=== PATIENT | male | born 1965 | race Two or more races ===

== ENCOUNTER 2024-07-19 09:58 | Outpatient (REF) | payer OTHER, SELFPAY ==
--- NOTE | ~2024-07-19 | XR_ITS ---
CLINICAL HISTORY: M25.561 - Pain in right knee 2 view right knee Comparison: None Findings: Bones intact. No dislocations. There are degenerative changes most pronounced in the medial compartment. No joint effusion. No radiopaque foreign body. IMPRESSION: 1. No acute findings. This document has been electronically signed by: Brian Pate MD on 07/20/2024 08:04:40
--- NOTE | ~2024-07-19 | XR_ITS ---
CLINICAL HISTORY: M25.562 - Pain in left knee 3 view left knee Comparison: None Findings: No fractures or dislocations. There are degenerative changes most pronounced in the medial compartment. No joint effusion. No radiopaque foreign body. IMPRESSION: 1. No acute findings. This document has been electronically signed by: Brian Pate MD on 07/20/2024 08:04:05
== END 2024-07-19 09:59 | disposition home or self-care (01) ==
LOC: HO.HOSX 09:58
PROVIDERS: PCP Internal Medicine; Visit Provider Orthopaedic Surgery
DX: M17.11 Unilateral primary osteoarthritis, right knee (principal); M25.561 Pain in right knee; M25.562 Pain in left knee
CPT/HCPCS: 73562; 99202

== ENCOUNTER 2024-07-19 09:58 | Outpatient (AMB) | payer OTHER, SELFPAY ==
--- NOTE | 2024-07-19 10:02 | A.OFFVIS_ITS ---
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 Patient reports that he has had pain in bilateral knee pain for quite some time now. He explains that he has been seen in the past with us but has since lost about 100lbs. Since loosing weight the knees have improved. The right is worse than the left. He has had history of cortisone injection with his PCP about a month ago. The cortisone is helping but he does continue to have pain. 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 Patient reports that he has had pain in bilateral knee pain for quite some time now. He explains that he has been seen in the past with us but has since lost about 100lbs. Since losing weight the knees have improved some but he still has a bad limp and is unable to gat through his day without pain. The right is worse than the left. He has had history of cortisone injection with his PCP about a month ago. The cortisone is helping but he does continue to have pain. Physical Exam Vital Signs: BMI result Body Mass Index 44.9 Extrem Other: Varus right knee with severe gait antalgia. Tenderness to palpation medial joint line. 5-125 degrees of motion. No effusion. Results Reviewed Results Reviewed: I personally reviewed relevant radiographs. End-stage medial compartment osteoarthritis with varus malalignment right knee Assessment & Plan Assessment & Plan (1) Arthritis of right knee: Code(s): M17.11 - Unilateral primary osteoarthritis, right knee Category: Medical Plan: This is a 58-year-old gentleman with severe medial compartment osteoarthritis of the right knee. He has had injections in the past and has lost significant amount weight. He has some excessive truncal obesity but he is on Ozempic and continuing to lose weight. He is frustrated that he can not ambulate. This is a patient I have seen in the remote past who was morbidly obese. It is impressive that he has lost weight and I do think he would benefit from knee arthroplasty injections activity modification and nonnarcotic pain medication have not been helpful. I discussed this with him. I discussed the risks benefits and alternatives including but not limited to the risk of pain, infection, stiffness, need for further surgery as well as potential medical complications such as blood clots, pulmonary embolism and cardiac complications. He would like to proceed forward with surgery. He had a cortisone injection about a month ago and so we will proceed forward with surgery in the next proximally 4 months. I answered his questions. We will begin the preoperative clearance process. Orders: Orders XR knee RT 3V Today M25.561 - Pain in right knee XR knee LT 3V Today M25.562 - Pain in left knee Coding Level of Care Code New Pt Level 4 (80414) Diagnoses Arthritis of right knee M17.11
[2024-07-19 10:22] VITALS: BMI 44.9
== END 2024-07-19 10:59 | disposition home or self-care (01) ==
LOC: HO.HOS 09:58
PROVIDERS: PCP Internal Medicine; Visit Provider Orthopaedic Surgery
DX: M17.11 Unilateral primary osteoarthritis, right knee (principal)
CPT/HCPCS: 99204

== ENCOUNTER → 2024-07-19 10:13 | Outpatient (BNV) | payer OTHER, SELFPAY | PROVIDERS: PCP Internal Medicine; Visit Provider Specialist | DX: M25.562 Pain in left knee (principal); M25.561 Pain in right knee | CPT/HCPCS: 73562 ==

== ENCOUNTER → 2024-09-16 08:55 | Outpatient (BNVA) | payer OTHER, SELFPAY | PROVIDERS: PCP Internal Medicine | DX: Z01.818 Encounter for other preprocedural examination (principal) ==

== ENCOUNTER 2024-09-24 | Outpatient (REF) | payer OTHER, SELFPAY ==
--- OUTSIDE RECORDS SUMMARY | 2024-08-27 14:12 | XMS_ITS ---
[facility] Address [address] [place] [address] Care Team Providers Care Assembler Name Role Phone Hanna RANGEL, Mckinley Primary Care Provider UnavailSanjay Sandy Unavailable [phone] Allergies Allergen (clinical drug ingredient) Drug/Non Drug Allergy documented on EMR Reaction Allergy Type Onset Date Status Penicillin Unknown Drug Allergy Active REASON FOR VISIT At Risk Footcare, Painful Nail(s) aggravated by shoes and causing difficulty standing/walking, Wart(s), Toe Irritation Medications Medication SIG (Take, Route, Frequency, Duration) Notes Start Date End Date Status traZODone HCl Active Ventolin HFA 108 (90 Base) MCG/ACT 1 puff as needed Inhalation every 4 hrs Active metFORMIN HCl 500 MG 1 tablet with a melany l Orally Once a day for 30 day(s) Active Pulmicort Active Ozempic Active cycloPHOSphamide 50 MG as directed Orally Active Chlorhexidine Active Ibuprofen 600 MG 1 tablet with food o r milk as needed Orally Three times a day Active Furosemide 40 MG 1 tablet Orally Once a day for 30 day(s) Active Lisinopril 5 MG 1 tablet Orally Once a day for 30 day(s) Active Cetirizine HCl Activ e Budesonide (Inhalation) Active amLODIPine Besylate 10 MG 1 tablet Orall y Once a day for 30 day(s) Active Ambien 10 MG 1 tablet at bedtime as needed Orally Once a day Active Breo Ellipta 100-25 MCG/ACT 1 puff Inhal ation Once a day Active Extra Depth Orthopedic Shoes, (1) Pair With (3) Pair Custom Heat Molded Multidensity Innersoles Dx: NIDDM/PVD(E11.51), Hammertoe Foot Deformity(M20.41,M20.42) , Preulcerative Skin Lesion(s)(L85.1) Wear Daily for 365 days Active Social History Tobacco Use: Social History Observation Description Date Details (start date - stop date) Never Smoker NA - NA Tobacco Use/Smoking Question Answer Notes Are you a: nonsmoker Additional Findings: Tobacco Non-User Current no n-smoker Alcohol Screen Question Answer Notes Did you have a drink containing alcohol in the p ast year? No Points 0 Interpretation Negative Tobacco use other than smoking: Question Answer Notes Are you an other tobacco user? No Vital Signs Weight 313 lbs 01/15/2024 BMI 50.51 kg/m2 01/15/2024 Procedures Procedure Date Ordered Date Performed Result Body Sit e 35278-NJPJYNS NAIL, 6 OR MORE 01/15/2024 N/A 71540-ROFK SKIN LESIONS, OVER 4 01/15/2024 N/A Encounters Encounter Location Date Provider Diagnosis [facility] [address] [address] 01/15/2024 Sanjay Lemons Type 2 diabetes mellitus with diabetic peripheral angiopathy without gangrene E11.51 ; Tinea unguium B35.1 ; Pain in right toe(s) M79.674 ; Pain in left toe(s) M79.675 ; Other hammer toe(s) (acquired), right foot M20.41 and Other hammer toe(s) (acquired), left foot M20.42 Assessments Encounter Date Diagnosis (ICD Code) Assessment Notes Treatment Notes Treatment Clinical Notes Section Notes 01/15/2024 Type 2 diabetes mellitus with diabetic peripheral angiopathy without gangrene (ICD-10 - E11.51) 01/15/2024 Tinea unguium (ICD-10 - B35.1) 01/15/2024 Pain in right toe(s) (ICD-10 - M79.674) 01/15/2024 Pain in left toe(s) (ICD-10 - M79.675) 01/15/2024 Other hammer toe(s) (acquired), right foot (ICD-10 - M20.41) Patient Educated with: DIABETIC FOOT CARE INSTRUCTIONS.p df (DIABETIC FOOT CARE INSTRUCTIONS.p df) 01/15/2024 Other hammer toe(s) (acquired), left foot (ICD-10 - M20.42) Plan Of Treatment Medication Medication Name Sig Start Date Stop Date Notes Extra Depth Orthopedic Shoes , (1) Pair With (3) Pair Custom Heat Molded Multidensity Innersoles Dx: NIDDM/PVD(E11.51), Hammertoe Foot Deformity(M20.41,M20.42), Preulcerative Skin Lesion(s)(L85.1) Wear Daily for 365 days Treatment Notes Assessment Notes Other hammer toe(s) (acquired), right fo ot Patient Educated with: DIABETIC FOOT CARE INSTRUCTIONS.pdf (DIABETIC FOOT CARE INSTRUCTIONS.pdf) Pending Test Test Name Order Date 25563-PNQKRDA NAIL, 6 OR MORE 01/15/2024 21528-[facility] SKIN LESIONS, OVER 4 01/15/20 24 Next Appt Details Follow Up: prn, Reason: Procedure Notes * Category Sub-Category Detail Notes Debride Nail 6-10 Nail debridement Performance o f this nail treatment by a nonprofessional would put this patients foot and overall health at risk. Therefore, nail debridement was performed extensively to reduce/remove overall nail length, girth, thickness, subungual debris, and necrotic tissue, by manual and/or electrical means through the use of a nail nipper and/or dremel-type universal grinder tool, to a more viable healthy nail plate or bed tissue 6-10. Silver nitrate used for any petechial bleeding as necessary. Definitive antifungal treatment options have been reviewed and discussed with the patient. The patient chooses, no pharmaceutical tx - 95729 Keratoma Treatment Parring or Cutting o f Benign Hyperkeratotic Lesion(s) (-57) More than 4 Lesions - The Benign hyperkeratotic lesions, as described above were pared, and/or cut utilizing a sterile 15 blade, tissue nippers, and/or dremel - 20536 , Q8 Progress Notes * Kenny CANDOB:1965 ( 58 yo M)Acc No.[id number]:01/15/2024 Progress Note Patient:Kenny MARTINEZ Provider:?Sanjay Lemons DPM :1965???Age:58 Y???Sex:Male Yoan e:01/15/2024 Address:[address] [place], [place] [id number] Pcp:Mckinley Ferreira MD Subjective: * Chief Complaints: * ???At Risk FootcarePainful N ail(s) aggravated by shoes and causing difficulty standing/walkingWart(s)Toe Irritation * HPI: ???At Risk footcare:?Pt States Last PCP Visit:?Date?12/25/2023 ???Toe pain:?Location:?B/L feet.?Duration:?several years.?Course:?worse.?Aggravated by:?shoes, any pressure.?Treatments:?change in shoes.? * ROS:?General/Constitutional:?Nausea?denies.?Vomiting?denies.?Hunger Thirst?denies.?Loss appetite?denies.?Chills?denies.?Fatigue?denies.?Fever?denies.?Night Sweats?denies.?Unexplained weight loss?denies.?Unexplained weight gain?denies.?HEENTM:?Dentures?denies.?Dizziness?denies.?Glasses/contacts?denies.?Retinopathy?den ies.?Blurred/double vision?denies.?TMJ?denies.?Discharge/drainage?denies.?Implants?denies.?Sore throat?denies.?Dental implants?denies.?Hard of hearing ?denies.?Difficulty chewing/swallowing/speaking?denies.?Nose bleeds?denies.?Sore mouth?denies.?Respiratory:?On O xygen?admits.?Pneumonia/pleurisy?denies.?Bronchitis?denies.?Emphysema?denies.?Co ughing?denies.?Cough blood?denies.?Shortness of breath?denies.?Wheezing?denies.?Cardiovascular:?Pacemaker?denies.?MVP?denies.?WPW?denies.?CHF?denies.?Heart attack?denies.?Septal defect?denies.?Rapid beat?denies.?Chest pain ?denies.?Atrial Fib.?denies.?Murmur/Palpitations?denies.?Gastrointestinal:?Hemorrhoids?denies.?Stomach/Abdominal pain?denies.?Dark blood stool?denies.?Irritable bowel ?denies.?Constipation?denies.?Diarrhea?denies.?Hematology:?Swelling?admits.?Clots?denies.?Varicose Veins?denies.?Bruising?denies.?Bleeding problem?denies.?Genitourinary:?Blood urine?denies.?Frequent/Painfu/urination/bladder control?denies.?Kidney stones?denies.?Infection (UTI)?denies.?Nephropathy?denies.?sex trans dis (STD)?denies.?Prostate?denies.?Musculoskeletal:?Hammertoes?admits.?Bunions?denies.?Back Pain?denies.?Muscle Cramps/ Resting?denies.?Muscle cramps / walking?denies.?Generalized aches and pains?denies.?Weakness?denies.?Integ.:?Dawn?denies.?Scars?denies.?Corns/calluses?admits.?Ingrown nails?admits.?Painful nails?admits.?Open Sores?denies.?Rashes?denies.?Neurologic:?Difficulty sleeping?denies.?Brain disorder?denies.?Numbness?denies.?Balance t rouble?denies.?Confusion?denies.?Fainting/blackouts?denies.?Tingling?denies.?Ector mors?denies.? * Medical History:? * Surgical History:?nasal surg sarah, deviated septum 2013knee surgery 05/2014 * Hospitalization/Major Diagno stic Procedure:?[facility]- SOB, pneumonia 06/2023 * Family History:?Mother: dece ased 64 yrs, diagnosed with Diabetic - NIDDM.?Father: , diagnosed with Diabetic - NIDDM.?Spouse: alive.? * Social History:?Tobacco Use:?Tobacco Use/Smoking?Are you a:?nonsmoker ?Additional Findings: Tobacco Non-User?Current non-smoker ?Tobacco use other than smoking?Are you an other tobacco user??No ???Drugs/Alcohol:?Drugs?Have you used drugs other than those for medical reasons in the past 12 months??No ?Alcohol Screen?Did you have a drink containing alcohol in the past year??No ?Points?0 ?Interpretation?Negative ???Miscellaneous:?Caffeine: yes. ?Children: yes. ?Exercise: no. ?Marital status: . ?Occupation: Disabled. * Medications:?TakingAmbien 10 MG Tablet 1 tablet at bedtime as needed Orally Once a day amLODIPine Besylate 10 MG Tablet 1 tablet Orally Once a day Breo Ellipta 100-25 MCG/ACT Aerosol Powder Breath Activated 1 puff Inhalation Once a day Budesonide (Inhalation) Cetirizine HCl Chlorhexidine cycloPHOSphamide 50 MG Capsule as directed Orally Furosemide 40 MG Tablet 1 tablet Orally Once a day Ibuprofen 600 MG Tablet 1 tablet with food or milk as needed Orally Three times a day Lisinopril 5 MG Tablet 1 tablet Orally Once a day metFORMIN HCl 500 MG Tablet 1 tablet with a meal Orally Once a day Ozempic Pulmicort traZODone HCl Ventolin HFA 108 (90 Base) MCG/ACT Aerosol Solution 1 puff as needed Inhalation every 4 hrs Extra Depth Orthopedic Shoes, (1) Pair With (3) Pair Custom Heat Molded Multidensity Innersoles . Dx: NIDDM/PVD(E11.51), Hammertoe Foot Deformity(M20.41,M20.42), Preulcerative Skin Lesion(s)(L85.1) Wear Daily Medication List reviewed and reconciled with the patientTaking Ambien 10 MG Tablet 1 tablet at bedtime as needed Orally Once a day Taking amLODIPine Besylate 10 MG Tablet 1 tablet Orally Once a day Taking Breo Ellipta 100-25 MCG/ACT Aerosol Powder Breath Activated 1 puff Inhalation Once a day Taking Budesonide (Inhalation) Taking Cetirizine HCl Taking Chlorhexidine Taking cycloPHOSphamide 50 MG Capsule as directed Orally Taking Furosemide 40 MG Tablet 1 tablet Orally Once a day Taking Ibuprofen 600 MG Tablet 1 tablet with food or milk as needed Orally Three times a day Taking Lisinopril 5 MG Tablet 1 tablet Orally Once a day Taking metFORMIN HCl 500 MG Tablet 1 tablet with a meal Orally Once a day Taking Ozempic Taking Pulmicort Taking traZODone HCl Taking Ventolin HFA 108 (90 Base) MCG/ACT Aerosol Solution 1 puff as needed Inhalation every 4 hrs Taking Extra Depth Orthopedic Shoes, (1) Pair With (3) Pair Custom Heat Molded Multidensity Innersoles . Dx: NIDDM/PVD(E11.51), Hammertoe Foot Deformity(M20.41,M20.42), Preulcerative Skin Lesion(s)(L85.1) Wear Daily Medication List reviewed and reconciled with the patient * Allergies:?Penicillinyes[All ergies Verified] Objective: * Vitals:?Wt:313, BMI:50.51, S hoe size:10.5, BS:93, Ht-cm: 167.64 cm, Wt-k.97 kg. * Examination: ???Vascular: ?DP PULSES (B):? 0/4, B/L.?PT PULSES (B):? 0/4, B/L.?CAPILLARY FILL TIME:? delayed, all digits, B/L.?TROPHIC CONDITION-TEXTURE/ELASTICITY/TURGOR/HAIR GROWTH (B):? decreased, with sparse to absent hair growth,?fragile, thin, shiny skin, B/L.?TEMPERTURE GRADIENT (C):? decreased, cool to cool, proximal to distal, B/L.?PIGMENTATION:? brawny, B/L.?EDEMA (C):? 3/4, non-pitting, without aching pain, B/L, Leg(s), Ankle(s), Feet.?CLAUDICATION (C):?denies, B/L.?REST PAIN:?denies, B/L.?Nails: ?NAILS are:?Elongated, overgrown, dystrophic, lytic, greater than 3mm thick, discolored and friable with crumbly malodorous subungual debris, with pain on palpation, 1-5 B/L.?Dermatologic: ?SKIN FINDINGS:? Skin exam reveals Keratotic lesion(s) located at, SUB MTH (s), 1, B/L , SUB MTH (s), 5, B/L , Heel(s), B/L .?VERRUCA:?NO FURTHER SIGN of mosaic papule(s) with skin lines now evident and visible plantar forefoot, B/L.?Orthopedic: ?MUSCLE STRENGTH:?5/5 all groups in a symmetrical fashion , B/L.?FOOT MORPHOLOGY:? Pes Planus structure, No Charcot collapse/destruction noted at MTJ.?DIGITAL DEFORMITIES:?Digital contracture, PIPJ, 2-5 B/L, incompl-reducible to push-up test, no over, nor underlapping , with evidence of shoe producing skin irritation.?FOOTWEAR:?worn, non-supportive , shoe gear properties exacerbate patients foot/toe deformity.?Neurological: ?SENSORY:?Neurological exam reveals intact sensorium, pain sensation normal, vibration sensation intact, pinprick sensation is normal in the lower extremities, 5.07 monofilament test performed at plantar aspects of 5 varied sites per foot shows sensation, normal, B/L, Pt denies, anesthesia, burning, paresthesia, tingling, B/L.?Ophthalmology Referral: ?DIABETES EYE EXAM?Procedure Performed:?Yes ?Date of Exam Performed?12/20/2023 ?Diabetic Retinopathy Screening:?Yes ?Findings of Diabetic Eye Exam:?no retinopathy?General Examination: ?GENERAL APPEARANCE:?Reveals a pleasant, alert, well nourished, well developed, well hydrated individual, who demonstrates proper attention to hygiene/body habitus, and is in no acute distress , Pt serves as own historian for office visit today.?ORIENTED:?person, place, and time.?FOOT EXAM:?Lower Extremity Neurological Exam performed:?Yes ?Visual exam of foot performed:?Yes ?Date?01/15/2024 ?Footwear Evaluation?Footwear Evaluation performed:?Yes??? Assessment: * Assessment: 1.?Type 2 diabetes mellitus with diabetic peripheral angiopathy without gangrene - E11.51???2.?Tinea unguium - B35.1???3.?Pain in right toe(s) - M79.674???4.?Pain in left toe(s) - M79.675???5.?Other hammer toe(s) (acquired), right foot - M20.41???Specify :Chronic problem, Worse (4),Rx Management (4)???6.?Other hammer toe(s) (acquired), left foot - M20.42???Specify :Chronic problem, Worse (4),Rx Management (4)??? Plan: * Treatment: 2.?Tinea unguium?Procedure: 21385-ZQMCFTO NAIL, 6 OR MORE 3.?Other hammer toe(s) (acqu ired), right foot? Start Extra Depth Orthopedic Shoes, (1) Pair ., With (3) Pair Custom Heat Molded Multidensity Innersoles, Dx: NIDDM/PVD(E11.51), Hammertoe Foot Deformity(M20.41,M20.42), Preulcerative Skin Lesion(s)(L85.1), Wear, Daily, 365 days, 2, Refills 0.?? Notes: Patient Educated with: DIABETIC FOOT CARE INSTRUCTIONS.pdf (DIABETIC FOOT CARE INSTRUCTIONS.pdf)?? * Procedures:?Debride Nail 6-10:?Nail debridement?Performance of this nail treatment by a nonprofessional would put this patients foot and overall health at risk. Therefore, nail debridement was performed extensively to reduce/remove overall nail length, girth, thickness, subungual debris, and necrotic tissue, by manual and/or electrical means through the use of a nail nipper and/or dremel-type universal grinder tool, to a more viable healthy nail plate or bed tissue 6-10. Silver nitrate used for any petechial bleeding as necessary. Definitive antifungal treatment options have been reviewed and discussed with the patient. The patient chooses, no pharmaceutical tx - 38263.?Keratoma Treatment:?Parring or Cutting of Benign Hyperkeratotic Lesion(s)?(-57) More than 4 Lesions - The Benign hyperkeratotic lesions, as described above were pared, and/or cut utilizing a sterile 15 blade, tissue nippers, and/or dremel - 96322 , Q8.? * Procedure Codes:?26382 DEBRI DE NAIL, 6 OR MORE, Modifiers: XS 22355 TRIM SKIN LESIONS, OVER 4, Modifiers: XS , Q8 * Preventive Medicine:? ??Counseling:?BMI Care goal follow-up plan:?BMI counseling provided to patient:?Lifestyle education ?Discussion:?-14: Office or other outpatient visit for the evaluation and management of an established patient, which required a medically appropriate history and/or examination and MODERATE level of DECISION MAKING for: 1 OR MORE CHRONIC PROBLEM(S) THATS WORSENING, 2 STABLE CHRONIC PROBLEMS, A NEWLY DIAGNOSED PROBLEM WITH UNCERTAIN PROGNOSIS, AN ACUTE COMPLICATED INJURY WITH MULTIPLE TREATMENT OPTIONS, OR AN ACUTE PROBLEM WITH ACCOMPANYING SYSTEMIC SYMPTOMS, THAT POSE(S) A MODERATE RISK OF MORBIDITY. THIS CONDITION MAY ALSO INCLUDE RX DRUG MANAGEMENT, OR A DECISON FOR MINOR SURGERY. The visit on the day of the encounter encompassed interpreting the data and educating the patient as to the nature of their condition, treatment options available according to their individual PMH, meds, allergies, and overall health/living conditions, as well as any potential risks or complications that may occur from a failure to adhere to, and participate in, the recommended course of therapy. The discussion included a complete verbal, and/or written explanation of the examination results, any x-rays taken, the proposed diagnosis, and outline of the treatment plan. A schedule for future care needs was also explained. The patient verbalized an understanding of the instructions at this time and agreed to be an active participant in their treatment. If the patient should think of any questions or concerns after the visit, I have encouraged the patient to call the office.?Digital Surgery:?Digital surgery was discussed with the patient, We elected to try conservative treatment at the present time, due to the patients medical history and increased asssociated post-operative risks.?Digital Treatment:?HT- I explained to the patient the possible etiologies of Hammertoes, including genetics/foot type/shoegear/activity level/exercise routine and the risks/benefits of all the different treatment options for their pain including: No treatment at all, Rest, Ice, New/supportive/wider/deeper Shoegear, Digital Padding/Strapping/Taping/Bracing/Gel protective sleeves, Foot/Ankle AFO Bracing, Stretching exercises, Deep Tissue Massage, Arch support/shoe inserts with splay metatarsal padding, and Custom orthoses. I insisted that any digital devices be removed daily and not worn overnight for safety. The patient is to carefully examine the toes daily for any skin irritation while using any splinting or padding device. The advantages and disadvantages of each option were discussed and the patients questions re: shoegear, padding, custom vs prefabricated inserts, activity level, and consistency in home treatment regimens for optimal success were answered to their verbally confirmed satisfaction.?Shoe Gear Counseling:?SHOE Rx - The patient was counseled in great detail on their muscoloskeletal foot and toe deformities which coincided with the dermatological presentations visualized on exam. We discussed how their deformities put the integrity of their feet at risk for potential pedal complications which makes the accomidative diabetic shoes and cutomizable inserts medically necessary. We discussed the different shoe and insert treatment types and options, as well as the important advantages for adhering to regularly wearing these accomidative devices daily. The patient was made aware of the fact that a failure to abide by these recommedations may be deleterious to their foot health as they are able to prevent many pedal complications such as skin irritation, skin ulceration, infection, and even loss of toe/foot/leg/or life. Time was also spent with the patient dispensing and discussing proper diabetic footcare techniques including daily skin moisturization, daily foot inspection for any interruption in skin integrity including open lesions, or sign of infection such as redness/malodor/drainage/swelling. Also discussed and recommended were procedures regarding daily shoe inspection for the presence of internal foreign bodies as well as any visualized irregular shoe or insert wear. Patient questions re: shoes, inserts, and self foot inspections were answered to their satisfaction as the patient verbally confirmed a full understanding of the above information. A Rx for Extra Depth Orthopedic Shoes with 3 pair of custom heat-molded inserts was dispensed.? ??Screening/Special Tests:?Fall Risk?Screening:?No falls in the past year ?FALLS: Screening for Future Fall Risk?Have you had any falls with injury in the past year??No * Follow Up:?prn * Images: * Sign off status: Completed true * Provider:?Sanjay Lemons DPM Date:?2023 Generated for Maddie espinoza/Laureano/Marissa on:?08/27/2024 02:12 PM EDT History and Physical Notes * HPI (History of Present Illness) Category Sub-Category Detail Notes Category Not es Toe pain Location: B/L feet Duration: several years Course: worse Aggravated by: shoes, any pressure Treatments: change in shoes At Risk footcare Pt States Last PCP Visit: Date: 4 Examination Category Sub-Category Detail Notes Category Not es Neurological SENSORY: Neurological exa m reveals intact sensorium, pain sensation normal, vibration sensation intact, pinprick sensation is normal in the lower extremities, 5.07 monofilament test performed at plantar aspects of 5 varied sites per foot shows sensation, normal, B/L, Pt denies, anesthesia, burning, paresthesia, tingling, B/L Dermatologic SKIN FINDINGS: Skin exam reveal s Keratotic lesion(s) located at, SUB MTH (s), 1, B/L , SUB MTH (s), 5, B/L , Heel(s), B/L VERRUCA: NO FURTHER SIGN of m osaic papule(s) with skin lines now evident and visible plantar forefoot, B/L Orthopedic FOOT MORPHOLOGY: Pes Planus stru cture, No Charcot collapse/destruction noted at MTJ FOOTWEAR EVALUATION: worn, non-supportiv e , shoe gear properties exacerbate patients foot/toe deformity DIGITAL DEFORMITIES: Digital contracture , PIPJ, 2-5 B/L, incompl-reducible to push-up test, no over, nor underlapping , with evidence of shoe producing skin irritation MUSCLE STRENGTH: 5/5 all groups in a symmetrical fashion , B/L General Examination GENERAL APPEARANCE: Reveals a pleasant, alert, well nourished, well developed, well hydrated individual, who demonstrates proper attention to hygiene/body habitus, and is in no acute distress , Pt serves as own historian for office visit today FOOT EXAM: Lower Extremity Neurological Exa m performed:: Yes Visual exam of foot performed:: Yes Date: 01/15/2024 ORIENTED: person, place, and t anna Footwear Evaluation Footwear Evaluation performe d:: Yes Ophthalmology Referral DIABETES EYE EXAM Procedure Perform ed:: Yes ?Date of Exam Performed: 12/20/2023 Diabetic Retinopathy Screening:: Yes Findings of Diabetic Eye Exam:: no retin opathy Vascular DP PULSES (B): 0/4, B/L PT PULSES (B): 0/4, B/L CAPILLARY FILL TIME: delayed, all digits , B/L TEMPERTURE GRADIENT (C): decreased, cool to cool, proximal to distal, B/L TROPHIC CONDITION-TEXTURE/ELASTICITY/TURGOR/HAIR GROWTH (B): decreased, with sparse to absent hair gr owth, fragile, thin, shiny skin, B/L EDEMA (C): 3/4, non-pitting, wi thout aching pain, B/L, Leg(s), Ankle(s), Feet CLAUDICATION (C): denies, B/L REST PAIN: denies, B/L PIGMENTATION: brawny, B/L Nails NAILS are: Elongated, overg rown, dystrophic, lytic, greater than 3mm thick, discolored and friable with crumbly malodorous subungual debris, with pain on palpation, 1-5 B/L
--- OUTSIDE RECORDS SUMMARY | 2024-08-27 14:13 | XMS_ITS | Patient Health Record ---
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 Name Role Phone Hanna RANGEL, Mckinley Primary Care Provider Unavailab Sanjay Garsia Unavailable [phone] Allergies Allergen (clinical drug ingredient) Drug/Non Drug Allergy documented on EMR Reaction Allergy Type Onset Date Status Penicillin Unknown Drug Allergy Active Reason For Referral No Information Medications Medication SIG (Take, Route, Frequency, Duration) Notes Start Date End Date Status traZODone HCl Active Cetirizine HCl Activ e Budesonide (Inhalation) Active Ventolin HFA 108 (90 Base) MCG/ACT 1 puff as needed Inhalation every 4 hrs Active cycloPHOSphamide 50 MG as directed Orally Active Chlorhexidine Active Extra Depth Orthopedic Shoes, (1) Pair With (3) Pair Custom Heat Molded Multidensity Innersoles Dx: NIDDM/PVD(E11.51), Hammertoe Foot Deformity(M20.41,M20.42) , Preulcerative Skin Lesion(s)(L85.1) Wear Daily for 365 days Active Ibuprofen 600 MG 1 tablet with food o r milk as needed Orally Three times a day Active Furosemide 40 MG 1 tablet Orally Once a day for 30 day(s) Active metFORMIN HCl 500 MG 1 tablet with a melany l Orally Once a day for 30 day(s) Active Lisinopril 5 MG 1 tablet Orally Once a day for 30 day(s) Active amLODIPine Besylate 10 MG 1 tablet Orall y Once a day for 30 day(s) Active Pulmicort Active Ambien 10 MG 1 tablet at bedtime as needed Orally Once a day Active Ozempic Active Breo Ellipta 100-25 MCG/ACT 1 puff Inhal ation Once a day Active Social History Tobacco Use: Social History [...] Are you an other tobacco user? No Problems Problem Type SNOMED Code ICD Code Onset Dates Problem Status W/U Status Risk Notes Problem Acquired hammer toe of right foot (62860202979176 05) Other hammer toe(s) (acquired), right foot (M20.41) Active confirmed Problem Type 2 diabetes mellitus with peripheral angiopathy (581102127) Type 2 diabetes mellitus with diabetic peripheral angiopathy without gangrene (E11.51) Active confirmed Problem Acquired hammer toe of left foot (31545519363049 03) Other hammer toe(s) (acquired), left foot (M20.42) Active confirmed Problem Plantar wart (91081935) Plantar wart (B07.0) Active confirmed Vital Signs Weight 313 lbs 01/15/2024 BMI 50.51 kg/m2 01/15/2024 Procedures Procedure Date Ordered Date Performed Result Body Sit e 78546-[id number] NAIL, 6 OR MORE 01/15/2024 N/A 82350-BQXO SKIN LESIONS, OVER 4 01/15/2024 N/A Encounters Encounter Location Date Provider Diagnosis [facility] [address] [address] 01/15/2024 Sanjay Lemons Type 2 diabetes mellitus [...] foot (ICD-10 - M20.42) Plan Of Treatment Pending Test Test Name Order Date [id number] NAIL, 6 OR MORE 05/05/2022 86004-EHFECML NAIL, 6 OR MORE 11/03/2022 06792-WSIQDVT NAIL, 6 OR MORE 08/09/2023 12616-ZYPPBEG NAIL, 6 OR MORE 01/15/2024 29132-Zusk Destruction, 1-14 08/09/2023 01974-Eszo Destruction, 1-14 11/03/2022 80257-ELVE SKIN LESIONS, OVER 4 08/09/19 24 20689-PJSP SKIN LESIONS, OVER 4 01/15/20 24 82518-IGQO SKIN LESIONS, OVER 4 11/04/19 23 98032-FYHE SKIN LESIONS, OVER 4 05/05/19 23 Insurance Providers Payer Name Payer Address Payer Phone Subscriber Number Group Number Insured Name Patient Relationship to Insured Coverage Start Date Coverage End Date [facility] [employer] Claims [address] [place] [id number] [phone] [id number] Kenny Faust Self - patient is the insured Medical (General) History Medical History History ICD Code Congestive heart failure Fatty liver Obesity, morbid Chronic respiratory failure Sleep apnea asthma Diabetic Hypertension Insomnia Reflux ( GERD) Substance abuse, cocaine use Diverticulitis Pneumonia Back pain Gall bladder problems High blood pressure Sinus conditions Surgical History Surgery Date(Month/Year) nasal surgery, deviated septum 2012 knee surgery 05/2014 Hospitalization History Reason Date(Month/Year) [facility]- SOB, pneumonia 06/2023
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
--- OUTSIDE RECORDS SUMMARY | 2024-08-27 14:13 | XMS_ITS | Clinical Summary ---
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 Machine Operator Name Role Phone Mckinley Ferreira MD Primary Care Provider Allergies Active Allergy Reactions Criticality Noted Date Comments Ketorolac Other (see comments) Medium 02/20/2024 Penicillins Other (see comments) 02/27/2008 Medications albuterol HFA (PROVENTIL HFA;VENTOLIN HFA) 108 (90 Base) MCG/ACT inhaler Inhale 2 puffs every 6 (six) hours if needed 11/07/19 24 Active amLODIPine (NORVASC) 10 MG tablet Take 10 mg by mouth 1 (one) time each day Active lisinopril 20 MG tablet Take 20 mg by mouth 1 (one) time each day Active metFORMIN (GLUCOPHAGE) 1000 MG tablet Take 1 tablet by mouth in the morning and 1 tablet in the evening. Take with meals. Active Ozempic, 0.25 or 0.5 MG/DOSE, 2 MG/3ML solution pen-injector 09/11/19 24 Active traZODone (DESYREL) 50 MG tablet Take 50 mg by mouth every night 09/11/19 24 Active furosemide (LASIX) 40 MG tablet Take 40 mg by mouth in the morning. 11/01/19 24 Active Fluticasone Furoate-Vilant elaine 100-25 MCG/ACT aerosol powder Inhale 1 Puff into the lungs daily. 11/07/19 24 Active fluticasone (FLONASE) 50 MCG/ACT nasal spray Administer 2 sprays into each nostril 1 (one) time each day 11/07/19 24 Active buPROPion XL (WELLBUTRIN XL) 300 MG 24 hr tablet Take 300 mg by mouth in the morning. 03/14/20 Active atorvastatin (LIPITOR) 40 MG tablet Take 40 mg by mouth 1 (one) time each day Active ergocalciferol 1.25 MG (24141 UT) capsule TAKE 1 CAPSULE BY MOUTH 1 TIME EVERY WEEK 12 capsule 08/09/19 Active ergocalciferol 1.25 MG (13302 UT) capsule TAKE 1 CAPSULE BY MOUTH 1 TIME EVERY WEEK 12 capsule 05/18/19 25 025 Discontinued Active Problems Problem Noted Date Diagnosed Date Vitamin D deficiency, not otherwise specified Hyperkalemia 05/26/2024 Plantar wart 02/20/2024 Stage 3a chronic kidney disease 02/20/2024 Type 2 diabetes mellitus wit h diabetic chronic kidney disease 02/20/2024 Body mass index 40+ - severely obese 02/08/2024 Palpitations 09/07/2023 Overview (02/20/2024): Last Assessment & Plan: The patient had 2 recent episodes of palpitations while off amlodipine, stating that he felt like his heart was racing for a short time while he was at rest. This resolved spontaneously and has not recurred since he restarted his amlodipine. We discussed the concern for potential atrial fibrillation given his history of sleep apnea; he declines the need for further intervention at present evaluation at present but if these palpitations continue to occur he will notify our office at which time we will pursue outpatient cardiac monitoring. Peripheral edema 02/17/2023 Shortness of breath 02/17/2023 Chronic heart failure co-occ urrent with normal ejection fraction 12/02/2021 Overview (02/20/2024): Last Assessment & Plan: Overall the patient reports that he has been doing well since his last visit; however, he does admit to dietary indiscretions at both lunch and dinner on a single day which then subsequently resulted in a weight gain of 3 pounds and increased peripheral edema the next day. A single extra dose of 40 mg furosemide has assisted with weight loss, but he continues to have mild lower extremity edema. He states his breathing is at baseline and he has no orthopnea or abdominal distention. He will take a second dose of furosemide today when he gets home and monitor for continued improvement in symptoms; he has been instructed that he can do this 1 more day for total of 3 days but if symptoms have not improved after that, he should call the office for further instruction. We will plan to have him check lab work on Sunday 09/10 and readdress the situation as needed. We will not make any other changes at this time. Non-alcoholic fatty liver disease 12/02/2021 Pain of knee region 11/23/2021 Chronic respiratory failure 08/31/2021 Overview (02/20/2024): Last Assessment & Plan: The patient has a history of chronic hypoxic respiratory failure secondary to obesity hypoventilation and is maintained on supplemental oxygen. Continue to follow with pulmonology as recommended. Cocaine use, unspecified, uncomplicated 08/24/19 Alcohol abuse 07/18/2019 Overview (02/20/2024): Last Assessment & Plan: The patient has improved his alcohol intake markedly, reporting that he only drinks 3-4 beers per week now. He was encouraged to continue with these efforts. Obstructive sleep apnea 02/13/2017 Overview (02/20/2024): [facility] Home Polysomnogram: Date 02/13/2017; AHI 63, Unclassified apneas 0; Obstructive apneas 1; Central apneas 0; Mixed apneas 0; hypopneas 124; average oxygen saturation 94% (lowest 84% without saturations <88% for 5% or more of study) Last Assessment & Plan: The patient reports continued compliance with BiPAP. Continue current plan. Uncomplicated asthma 06/08/2016 Overview (02/20/2024): Last Assessment & Plan: Continue using Breo/Ellipta 1 puff once a day 100 mcg Continue with albuterol as needed Type 2 diabetes mellitus without complication Overview (02/20/2024): Last Assessment & Plan: LDL goal for this patient with a history of diabetes and without coronary artery disease is less than 70; last lipid panel completed 05/08/2023 revealed an LDL of 87. We will update a lipid panel with his next set of labs. We discussed the start of statin therapy to help reduce the risk of a cardiovascular event in the future; he is amenable to this if needed. We we will continue to address once results are reviewed. Gastroesophageal reflux disease 03/14/2014 Hypertension 08/15/2012 Overview (02/20/2024): Last Assessment & Plan: Blood pressure is well-controlled on current medical therapies; continue amlodipine, furosemide, and lisinopril without change. We will update metabolic panel today. Insomnia 03/09/2012 Overview (02/20/2024): Trazodone and ambien from previous pcp Encounters Date Type Department Care Team Description 08/07/2024 Refill [facility] [address] [phone] Trenton Argueta MD 07/30/2024 Orders Only [facility] [address] [phone] Smita Avalos ARNP Stage 3a chronic kidney disease (HCC); Hypertension from Last 3 Months Immunizations Immunization Administration Dates Next Due Influenza, MDCK, PF, Quadrivalent 02/20/2023 Influenza, Quadrivalent, Preservative Free 03/20,08/06/2021 PPD Test 03/23/2015 Pneumococcal Polysaccharide 02/26/2002 Tdap 09/11/2014 Social History Tobacco Use Types Packs/Day Years Used Date Smoking Tobacco: Never Assessed Sex and Gender Information Value Date Recorded Sex Assigned at Not on file Legal Sex Male 10:07 PM EDT Gender Identity Not on file Sexual Orientation Not on file Last Filed Vital Signs Vital Sign Reading Time Taken Comments Blood Pressure 118/80 05/23/2024 10:36 AM EST Pulse 94 05/23/2024 10:17 AM EST Temperature - - Respiratory Rate - - Oxygen Saturation 98% 05/23/2024 10:17 AM EST Inhaled Oxygen Concentration - - Weight 133 kg (294 lb) 05/23/2024 10:17 AM EST Height - - Body Mass Index - - Plan of Treatment Upcoming Encounters Date Type Department Care Team (Late st Contact Info) Description 11/20/2024 3:30 PM EDT Office Visit [facility] [address] [phone] Toño Greenfield MD [address] [address] Health Maintenance Due Date Last Done Comments Hepatitis B Vaccine (1 of 3 - 19+ 3-dose series) 1984 Pneumococcal Vaccine: 50+ Ye ars (2 of 2 - PCV) 02/26/2003 02/26/2002 Colorectal Cancer Screening: Annual FOBT 2014 Colorectal Cancer Screening: Colonoscopy 2014 Colorectal Cancer Screening: Sigmoidoscopy 2014 Diabetes: Ophthalmology Exam 01/04/2024 Diabetes: Pedal Pulse Checked 01/04/2024 Diabetes: Sensory Foot Exam 01/04/2024 Diabetes: Visual Foot Exam 01/04/2024 Diabetes: Hemoglobin A1C 09/23/2024 06/26/2024, 0709/2023 Influenza Vaccine (Season Ended) 2024 02/20/2023, 03/20/2022, 03/20/2022, Additional history exists Pneumococcal Vaccine: Peds ( 0 to 5 Years) and At-Risk Patients (6 to 49 Years) Discontinued 02/26/2002 Procedures Procedure Name Priority Date/Time Associated Diagnosis Comments US RENAL COMPLETE Routine 06/12/2024 3:1 9 PM EST Stage 3a chronic kidney disease (HCC) Hypertension from Last 3 Months Results * Ultrasound renal complete (06/12/2024 3:19 PM EST) Anatomical Region Laterality Modality Body Ultrasound us Smita VAUGHN IM US PROCEDURES Final Res ult from Last [address] [place] [address] [place] [id number] Care Teams Halver Machine Operator Relationship Specialty Start Date End Date Mckinley Ferreira MD PCP - General Internal Medicine 02/20/24
--- OUTSIDE RECORDS SUMMARY | 2024-08-27 14:13 | XMS_ITS | Data Portability ---
Author Organization MD - [facility], Allergy Address [address] [address] Care Team Providers Care Independent Living Instructor Name Role Phone TEE AYALA Primary Care Provider [phone] Assessment Encounter Date Assessment Date Assessment LastModified by Organization Details LastModified Time 11/09/2023 11/09/2023 Patient recalls a line appliance assembler in [place] was able to repair the left-sided nasal scarring several years ago. He now returns with right-sided blockage. On my examination I appreciate bilateral scar tissue obstructing the nasal valve. I would like to refer him back to his specialist in [place] to repair the scar tissue. Underlying causes include possible autoimmune, Shalini's as well as possibility of trauma from his significant intranasal drug use history [email or web address] Not available 11/09/2023 13:21:22 Plan of Treatment Reminders Order Date Submit Date Provider Last Modified By Organization Details Last Modified Time Details Appointments None recorded. Lab None recorded. Referral rhinology referral - Telehealth on 11/15 @ 1pm. 2023 024 SEGUN Crowe MD, [address] [place] [address], [phone], 13:32:00 Procedures None recorded. Surgeries None recorded. Imaging None recorded. Medication Orders None recorded. Patient TargetsNo targets recorded. Patient InstructionsNo instructions recorded. Reason for Referral Rhinology Referral for Steno sis of nasal valve Telehealth on 11/15 @ 1pm. Referring Physician: Rambo Balderas, Otolaryngology, Encounter Date: 11/09/2023 Results Created Date Observation Date Name Description Value Unit Range Abnormal Flag Note LastModifiedBy Organization Detail LastModifiedTime 12/19/19 24 05/22/2023 imagi ng/di agnos tic resul t No observ ation record ed. [email or web address] Not Available 21:32:35 12/19/19 24 02/13/2023 imagi ng/di agnos tic resul t No observ ation record ed. [email or web address] Not Available 21:33:01 Result Notes None recorded. Problems Name Problem SNOMED Code Status Onset Date Resolution Date Notes Provider Name and Address Organization Details Recorded Time Chronic rhinitis 09527334 Active 2013 Chronic rhinitis; CMS Risk: low risk CMS Treatment : establish ed problem (to examiner) : stable or improved Condition : stable No te: Date Diagnosed : 04/07/2014 3:36 PM (472.0) Not Available [facility] 4 02:22:19 Chronic pansinusi tis 06369166 Active 2014 Chronic pansinusi tis; Note: Date Diagnosed : 5 4:46 PM (J32.4) Not Available [facility] 4 02:22:58 Epistaxis Active 2013 Epistaxis ; CMS Risk: low risk CMS Treatment : establish ed problem (to examiner) : stable or improved Condition : stable No te: Date Diagnosed : 04/07/2014 3:36 PM (784.7) Not Available [facility] 4 02:22:48 Acute serous otitis media of right ear 20068541152 83927 Active 2015 Acute serous otitis media, right ear; Note: Date Diagnosed : 08/04/2015 4:34 PM (H65.01) Not Available [facility] 4 02:22:50 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; Note: Date Diagnosed : 05/21/2018 2:58 PM (M31.3) Not Available [facility] 4 02:22:40 Sensorine ural hearing loss 98027244 Active 2015 Sensorine ural hearing loss, unilatera l, left ear, with unrestric santosh hearing on the contralat eral side; Note: Date Diagnosed : 08/04/2015 3:59 PM (H90.42) Not Available [facility] 4 02:22:40 Celluliti s 729390658 Active 2018 Celluliti s, unspecifi ed; Note: Date Diagnosed : 05/14/2018 5:29 PM (L03.90) Not Available [facility] 4 02:22:20 Impacted cerumen in left ear 11100636774 18992 Active 2015 Impacted cerumen, left ear; Note: Date Diagnosed : 08/04/2015 3:36 PM (H61.22) Not Available [facility] 4 02:22:23 Mixed conductiv e and sensorine ural hearing loss of right ear 27641902307 105 Active 2015 Mixed conductiv e and sensorine ural hearing loss, unilatera l, right ear, with unrestric santosh hearing on the contralat eral side; Note: Date Diagnosed : 08/04/2015 4:01 PM (H90.71) Not Available [facility] 4 02:22:29 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 Procedures Surgical History None recorded. Imaging Results Imaging Date Name Status LastModified by Organiz ation Details LastModified Time 05/22/2023 imaging/diag nostic result completed Information not available 12/19/2023 21:32:35 02/13/2023 imaging/diag nostic result completed Information not available 12/19/2023 21:33:01 Procedure Notes None recorded. Medical Equipment None Reported. Allergies Allergen ID Allergen Name Allergen Category Reaction Reaction Severity Criticality Documentation Date Start Date Code Code System Note Provider Name and Address Organization Details Recorded Time 98442 Product containin g penicilli n (product) medicatio n other Not available Not available 09/12/2023 36878 5965 SNOMED React ion: unkno wn, unspe cifie d;; Not Available [facility] 4 00:55:47 Medications Name Sig Start Date Stop Date Status Note LastModified by Organization Details LastModified Time furosemide 40 mg tablet TAKE 1 TABLET BY MOUTH DAILY active Not Available Not Available No t Available atorvastat in 40 mg tablet TAKE 1 TABLET BY MOUTH EVERY DAY active Not Available Not Available No t Available cyanocobal villalta (vit B-12) ER 1,000 mcg tablet,ext ended release active Not Available Not Available Not Available prednisone 10 mg tablet active Not Available Not Available Not Available doxycyclin e hyclate 100 mg capsule TAKE 1 CAPSULE BY MOUTH TWICE DAILY FOR 9 DAYS active Not Available Not Available No t Available atorvastat in 20 mg tablet 2017 active Medicatio n ID: [id number] Du ration Value: 60 Brand Name: malu martino Send Method: E-Prescri bed Subs Allowed: subs OK Specia l Instructi on: TK 05/02 T PO D Medicat ionGeneri cName: atorvasta tin Not Available Not Available Not Available ipratropiu m 0.5 mg-albuter ol 3 mg (2.5 mg base)/3 mL nebulizati on soln INHALE 3ML INTO THE LUNGS FOUR TIMES DAILY active Not Available Not Available No t Available albuterol sulfate 2.5 mg/3 mL (0.083 %) solution for nebulizati on USE 2.5MG WITH NEBULIZER EVERY 4 HOURS NEEDED FOR SHORTNESS OF BREATH OR WHEEZING active Not Available Not Available No t Available trazodone 50 mg tablet active Not Available Not Available Not Available azithromyc in 250 mg tablet TAKE 2 TABLETS BY MOUTH FOR 1 DAY THEN TAKE 1 TABLET BY MOUTH DAILY FOR 4 DAYS active Not Available Not Available No t Available lisinopril 20 mg tablet TAKE 1 TABLET BY MOUTH DAILY active Not Available Not Available No t Available prednisone 20 mg tablet active Not Available Not Available Not Available moxifloxac in 400 mg tablet TAKE 1 TABLET BY MOUTH DAILY FOR 5 DAYS active Not Available Not Available No t Available amlodipine 5 mg tablet TAKE 1 TABLET BY MOUTH EVERY DAY active Not Available Not Available No t Available doxycyclin e monohydrat e 100 mg tablet TAKE 1 TABLET BY MOUTH TWICE DAILY active Not Available Not Available No t Available amlodipine 10 mg tablet TAKE 1 TABLET BY MOUTH DAILY active Not Available Not Available No t Available metformin 1,000 mg tablet TAKE 1 TABLET BY MOUTH TWICE DAILY WITH MEALS active Not Available Not Available No t Available prednisone 50 mg tablet TAKE 1 TABLET BY MOUTH EVERY DAY IN THE MORNING FOR 5 DAYS active Not Available Not Available No t Available mupirocin 2 % topical ointment 1 a small amount to affected area 2018 active Medicatio n ID: [id number] Du ration Value: 7 Prescrib ed By Name: Saulo Joshi Name: mupirocin Send Method: E-Prescri bed Subs Allowed: subs OK Medica tionGener icName: mupirocin Not Available Not Available Not Available Levaquin 500 mg tablet 1 tablet by mouth 2014 active Medicatio n ID: [id number] Du ration Value: 10 Prescrib ed By Name: Saulo Byrd Name: Levaquin Send Method: E-Prescri bed Subs Allowed: subs OK Medica tionGener icName: Levaquin Not Available Not Available Not Available zolpidem 10 mg tablet active Not Available Not Available Not Available fluticason e propionate 50 mcg/actuat ion nasal spray,susp ension SHAKE LIQUID AND USE 2 SPRAYS IN EACH NOSTRIL DAILY active Not Available Not Available No t Available Ventolin HFA 90 mcg/actuat ion aerosol inhaler INHALE 2 PUFFS BY MOUTH EVERY 4 HOURS NEEDED FOR COUGH OR WHEEZING active Not Available Not Available No t Available Bactrim DS 800 mg-160 mg tablet 1 tablet by mouth 2018 active Medicatio n ID: [id number] Du ration Value: 10 Prescrib ed By Name: Saulo Joshi Name: Bactrim DS Send Method: E-Prescri bed Subs Allowed: subs OK Specia l Instructi on: Yogurt/pr obiotic concurren tly Medic ationGene ricName: Bactrim DS Not Available Not Available Not Available bupropion HCl XL 300 mg 24 hr tablet, extended release active Not Available Not Available Not Available alfuzosin ER 10 mg tablet,ext ended release 24 hr TAKE 1 TABLET BY MOUTH AT BEDTIME active Not Available Not Available No t Available Neilmed Sinus Rinse Refill packet 2014 active Medicatio n ID: [id number] Pr escribed By Name: YENNI Shafer Name: Neilmed Sinus Rinse Refill Se nd Method: E-Prescri bed Subs Allowed: subs OK Specia l Instructi on: use as directed Medicatio nGdeboraN gee: Neilmed Sinus Rinse Refill Not Available Not Available Not Available budesonide 1 mg/2 mL suspension for nebulizati on USE 1MG WITH NEBULIZER TWICE DAILY active Not Available Not Available No t Available Neilmed Sinus Rinse Complete with packet 2014 active Medicatio n ID: [id number] Pr escribed By Name: YENNI Shafer Name: Neilmed Sinus Rinse Complete Send Method: E-Prescri bed Subs Allowed: subs OK Specia l Instructi on: Use 1-2 times a day as needed Me dicationG enericNam e: Neilmed Sinus Rinse Complete Not Available Not Available Not Available diclofenac 1 % topical gel APPLY 4 GRAMS TOPICALLY TO THE AFFECTED AREA TWICE DAILY NEEDED FOR KNEE PAIN active Not Available Not Available No t Available Breo Ellipta 100 mcg-25 mcg/dose powder for inhalation INHALE 1 PUFF INTO THE LUNGS DAILY active Not Available Not Available No t Available Incruse Ellipta 62.5 mcg/actuat ion powder for inhalation INHALE 1 PUFF INTO THE LUNGS DAILY active Not Available Not Available No t Available Ozempic 0.25 mg or 0.5 mg (2 mg/3 mL) subcutaneo us pen injector active Not Available Not Available Not Available Vitals Date Recorded Body height Body mass index (BMI) Body weight Provider Name and Address Organization Details Last Updated DateTime 11/09/2023 167.64 cm 53.7 kg/m2 586568.26 g Dior Jaffe [place] - [facility] 11/09/2023 13:07:57 Social History None recorded. Functional Status None recorded. Mental Status None recorded. Family History Nothing Reported. Medical History Condition Response Arthritis Y Hypertension Y Anxiety Y Asthma Y Kidney Disease Y Past Encounters Encounter ID Performer Location Encounter Start Date Encounter Closed Date Diagnosis/Indication Diagnosis SNOMED-CT Code Diagnosis ICD10 Code Diagnosis Note [id number] RAMBO BALDERAS MD [facility] [address] [address] 11/09/2023 12:56:43 11/09/2023 13:23:52 Stenosis of nasal valve [id number] 6251485 J34.89 Health Concerns Section Related Observation LastModified by Organization Detai ls LastModified Time None Recorded Concern Status LastModified by Organization Details LastModified Time None Recorded Advance Directives Directive None Recorded Payers Encounter Date Sequence Insurance Name Policy Number Policy Zacarias Covered Member ID Zacarias Member ID Guarantor Name 11/09/2023 1 [facility] - DOS ON OR AFTER 2022 - MEDICARE [place]VANTAGE [place] RE[place]ACEMENT/ADV ANTAGE - PPO) Kenny Faust [id number] Kenny Faust Notes Date Note Type Note Provider Name and Address Organization Details Recorded Time 11/09/2023 text/html history of of septoplasty with Dr. Lomax in 2009 at which time a significant amount of granulation tissue was noted. [id number], patient underwent 2 revision sinus surgeries to reduce the amount of granulation tissue. His autoimmune testing showed ANCA panel testing was positive. Office visit in 05/21/2018 noted stenosis of nasal passage with a white hyperkeratotic lesion in the right lateral nasal ala measuring 5 mm. 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 He reports the rheumatology never found any underlying disease. The line appliance assembler was able to remove and repair the scar tissue on left nose at that time He admits to a lot of intranasal drugs in his youth Now reports right side is blocked [facility] at 2 and 3 L/min was introduced during the study for persistent desaturation RAMBO BALDERAS MD [address] [place] [address],[place] [address], [place], [address], [facility] - [facility] 11/09/2023 13:22:07
--- OUTSIDE RECORDS SUMMARY | 2024-08-27 14:13 | XMS_ITS | Encounter Summary ---
Author Organization [facility] Address [address] [place] [address] Care Team Providers Care Handbag Framer Name Role Phone Mckinley Ferreira MD Primary Care Provider [phone] Reason for Referral * Consultation (Routine) - Authorized Specialty Diagnoses / Procedures Referred By Contact Referred To Contact Hand Surgery / Orthopaedic Surgery Diagnoses Hand numbness Mckinley Ferreira MD [address] [place] [phone] Phone: tel: fax: Orthopedic Surgery [address] [place] [phone] Phone: tel: fax: Referral ID Status Reason Start Date Expiration Date Visits Requested Visits Authorized [id number] Authorized Specialty Services Required 08/26/2024 08/26/2025 1 1 Reason for Visit * Reason Comments Pre-op Exam preop - labs and ekg needed dr. dale jiménez total knee arthroplasty sd 10/22 Encounter Details Date Type Department Care Team (Late st Contact Info) Description 08/26/2024 10:00 AM EDT Consult Internal Medicine - [address] [address] Mckinley Ferreira MD [address] [place] [address] Morbid obesity with BMI of 50.0-59.9, adult (CMS/HCC V24, CMS/HCC V28) (Primary Dx); Pre-op exam; Hand numbness; Type 2 diabetes mellitus without complication, with long-term current use of insulin ([facility] V24, [facility] V28); Primary hypertension; Chronic pain of right knee Social History Tobacco Use Types Packs/Day Years Used Date Smoking Tobacco: Never Smokeless Tobacco: Never Tobacco Cessation:Counseling Given: Not Answered Alcohol Use Standard Drinks/Week Comments Not Currently [...] PM EST documented as of this encounter Last Filed Vital Signs Vital Sign Reading Time Taken Comments Blood Pressure 96/62 08/26/2024 10:02 AM EDT Pulse 72 08/26/2024 10:02 AM EDT Temperature - - Respiratory Rate - - Oxygen Saturation - - Inhaled Oxygen Concentration - - Weight 127 kg (279 lb) 08/26/2024 10:02 AM EDT Height 167.6 cm (5' 6 ) 08/26/2024 10:02 AM EDT Body Mass Index 45.03 08/26/2024 10:02 AM EDT documented in this encounter Progress Notes * Tg Cooper MA - 08/26/2024 10:00 AM EDT Electrocardiogram performed and reviewed by Mckinley Ferreira MD. * Mckinley Ferreira MD - 08/26/2024 10:00 AM EDT CHIEF COMPLAINT: Chief Complaint Patient presents with Pre-op Exam preop - labs and ekg needed dr. dale jiménez total knee arthroplasty sd 10/22 IDENTIFIER: Kenny Faust. 58 y.o.. HPI: History of Present Illness The patient presents for preoperative clearance for right knee replacement surgery. He is scheduled for a right knee replacement surgery in 09/2024. Cardiology clearance is required due to his history of COPD and heart issues, with an appointment already scheduled for 09/13/2024. Anappointment with his machine i coremaker is also anticipated. No chest pain, shortness of breath, or palpitations are reported. However, stiffness in the arms and hands is noted, particularly when seated in a recliner or during sleep, necessitating movement to restore circulation. Patient does have long history for diabetes that has exhibited improvement as well he is under careof endocrinology hypertension is well-controlled PAST MEDICAL HISTORY: Past Medical History: Diagnosis Date Diverticulitis of large intestine with bleeding 09/04/2017 DX:Diverticulitis of large intestine with bleeding GERD (gastroesophageal reflux disease) 03/14/2014 DX:GERD (gastroesophageal reflux disease) HTN (hypertension) 08/15/2012 DX:HTN (hypertension) Insomnia 03/09/2012 DX:Insomnia; COMMENT: Trazodonarely and ambdee from previous pcp Obesity 04/18/2014 DX:Obesity Obstructive sleep apnea 02/13/2017 DX:Obstructive sleep apnea; COMMENT: [facility] Home Polysomnogram: Date 02/13/2017; AHI 63, Unclassified apneas 0; Obstructive apneas 1; Central apneas 0; Mixed apneas 0; hypopneas 124; average oxygen saturation 94% (lowest 84% without saturations <88% for 5% or more of study) Type 2 diabetes mellitus without complication ([facility] V24, [facility] V28) 12/05/2014 DX:Type 2 diabetes mellitus without complication ([facility]) Uncomplicated asthma 06/08/2016 DX:Uncomplicated asthma PAST SURGICAL HX: Past Surgical History: Procedure Laterality Date KNEE SURGERY Right PROCEDURE: HISTORICAL KNEE SURGERY; COMMENT: Dr Russo, medial meniscus? NOSE SURGERY 05/01/2012 PROCEDURE: CT UNLISTED PROCEDURE NOSE; COMMENT: Gigi. left deviated septum OTHER SURGICAL HISTORY PROCEDURE: CT UNLISTED PX MECK[facility]S DIV[facility]ICUL[facility] MESENTERY SOCIAL HISTORY: FAMILY HISTORY: No family history on file. MEDICATIONS DISCONTINUED/REORDERED: There are no discontinued medications. ACTIVE MEDICATIONS: Current Outpatient Medications on File Prior to Visit Medication Sig Dispense Refill albuterol HFA (PROAIR HFA ; PROVENTIL HFA ; VENTOLIN HFA) 90 mcg/actuation inhaler Inhale 2 Puffs into the lungs every 4 hours as needed for Cough or Wheezing. 6.7 g 1 alfuzosin (UROXATRAL) 10 mg 24 hr tablet Take 1 tablet (10 mg total) by mouth 1 (one) time each day. amLODIPine (NORVASC) 10 mg tablet TAKE 1 TABLET(10 MG) BY MOUTH 1 TIME EACH DAY 90 tablet 0 atorvastatin (LIPITOR) 40 mg tablet Take 1 tablet (40 mg total) by mouth 1 (one) time each day. 90 tablet 0 blood sugar diagnostic (FreeStyle Lite Strips) test strip Use one test strip to check blood sugar twice a day budesonide (PULMICORT) 0.5 mg/2 mL nebulizer solution Take 2 mL (0.5 mg total) by nebulization 1 (one) time each day. buPROPion XL (WELLBUTRIN XL) 300 mg 24 hr tablet Take 1 tablet (300 mg total) by mouth 1 (one) timeeach day. cyanocobalamin (VIT B-12) 1,000 mcg tablet extended release ER tablet Take 1 tablet (1,000 mcg total) by mouth 1 (one) time per week. cycloPHOSphamide (CYTOXAN) 50 mg capsule as directed Orally diclofenac (VOLTAREN) 1 % topical gel Apply 4 g topically 2 times daily as needed (knee pain). ergocalciferol (VITAMIN D-2) 1,250 mcg (50,000 unit) capsule Take 1 capsule (50,000 Units total) bymouth 1 (one) time per week. fluticasone furoate-vilanteroL (BREO ELLIPTA) 100-25 mcg/dose inhaler Inhale 1 Puff into the lungs daily. fluticasone propionate (FLONASE) 50 mcg/actuation nasal spray 2 Sprays by Each Nare route daily. furosemide (LASIX) 40 mg tablet Take 1 tablet (40 mg total) by mouth 1 (one) time each day. 90 tablet 0 ibuprofen (ADVIL,MOTRIN) 600 mg tablet 1 tablet with food or milk as needed Orally Three times a day ipratropium-albuteroL (DUONEB) 0.5-2.5 mg/3 mL nebulizer solution Inhale 3 mL into the lungs 4 times daily. lancets 30 gauge misc Use one lancet to check blood sugar twice a day lisinopriL (PRINIVIL,ZESTRIL) 10 mg tablet TAKE 1 TABLET BY MOUTH DAILY 90 tablet 1 [facility], [facility]) BLOOD GLUCOSE MONITORING SUPPL (FREESTYLE LITE) Use to check blood sugar twice a day medical supply, miscellaneous (MISCELLANEOUS MEDICAL SUPPLY [facility]) ELASTIC BANDAGES & SUPPORTS (ABDOMINAL BINDER/ELASTIC 2XL) [facility] 1 Units by Does not apply route continuous. metFORMIN (GLUCOPHAGE) 500 mg tablet Take 1 tablet (500 mg total) by mouth 1 (one) time each day with breakfast. 90 tablet 1 semaglutide (Ozempic) 2 mg/dose (8 mg/3 mL) injection pen Inject 2 mg under the skin every 7 (seven) days. 3 mL 1 sodium chloride-aloe vera (Roberts Saline) gel topical gel 0.5 Inches by Nasal route as needed for Other (for nasal dryness). traZODone (DESYREL) 50 mg tablet Take 1 tablet (50 mg total) by mouth at bedtime. umeclidinium (Incruse Ellipta) 62.5 mcg/actuation inhalation Inhale 1 Puff into the lungs daily. No current facility-administered medications on file prior to visit. ALLERGIES: Allergies Allergen Reactions Ketorolac Other Penicillin G Penicillins ROS: Constitutional: no weakness fever/ sweats, or weight change Eyes: no blurred vision,pain or discharge ENT: no mouth pain,oral bleeding, congestion or discharge Respiratory: no shortness of breath, cough or wheezing Cardiovascular:no chest pain or palpitations, no orthopnea or PND GI: no nausea, vomiting or diarrhea; no rectal bleeding or dark stools : no dysuria or frequency; no nocturia or hesitancy PHYSICAL EXAM: Vitals: 08/26/24 1002 BP: 96/62 Pulse: 72 BMI PLAN BMI Body mass index is 45.03 kg/m??. General: the patient is in no acute distress.A & Ox 3 Head/Neck: neck supple Lungs: clear to percussion and auscultation. Heart: regular rhythm; Abdominal exam; positive bowel sounds; soft, Extremities: no cyanosis, clubbing or edema. LABS: ordered IMPRESSION: Encounter Diagnoses Name Primary? Pre-op exam Hand numbness Type 2 diabetes mellitus without complication, with long-term current use of insulin ([facility] V24, [facility] V28) Primary hypertension Morbid obesity with BMI of 50.0-59.9, adult (CMS/[facility] V24, [facility] V28) Yes Chronic pain of right knee PLAN: Assessment & Plan 1. Preoperative clearance for right knee replacement: - History of COPD and cardiac issues necessitates clearance from Cardiology and Pulmonology. - Referral to Cardiology has been initiated; appointment scheduled for 09/13/2024. - Upcoming appointment with machine i coremaker confirmed. - Blood work ordered to be completed closer to the surgery date in 09/2024. 2. Suspected carpal tunnel syndrome: - Reports stiffness in arms and hands while seated and during sleep, requiring movement to restore circulation. - Symptoms include hands falling asleep and becoming stiff. - Referral to a hand specialist has been made to evaluate for potential carpal tunnel syndrome. - Evaluation to be conducted by the specialist at the [facility]. Diabetes mellitus stable patient currently on Ozempic blood work is pending Follow-up - Cardiology appointment scheduled for 09/13/2024. - Blood work to be completed closer to the surgery date in 09/2024. Orders Placed This Encounter Procedures Ambulatory referral to Hand Surgery Standing Status: Future Standing Expiration Date: 08/26/2025 Referral Priority: Routine Referral Type: Consultation Referral Reason: Specialty Services Required Requested Specialty: Hand Surgery Number of Visits Requested: 1 ECG 12 lead Order Specific Question: Reason for Exam: Answer: Pre-Procedure Additional Orders: None I have obtained verbal consent from Kenny Faust prior to the recording. I have advised Kenny Faust that he may refuse the recording and require the recording to be turned off at any time during this encounter. Mckinley Ferreira MD documented in this encounter Plan of Treatment Upcoming Encounters Date Type Department Care Team (Late st Contact Info) Description 09/13/2024 9:40 AM EDT Consult [facility] - [facility] [address] [facility] [address] [place] [address] Fidelina Lau NP [address] [place] [address] 09/24/2024 11:00 AM EDT Office Visit Pulmonolgy - [place] [address] [place] [address] Helen Palumbo NP [address] [place] [address] 01/13/2025 1:00 PM EDT Office Visit Endocrinology - [place] [address] [place] [address] Aggie Rush MD [address] [place] [address] Scheduled Referrals Name Type Priority Associated Diagnoses Order Schedule Ambulatory referral to Hand Surgery Outpatient Referral Routine Hand numbness 1 Occurrences starting 08/26/2024 until 08/26/2025 documented as of this encounter Procedures Procedure Name Priority Date/Time Associated Diagnosis Comments ECG 12-LEAD Routine 08/26/2024 11:36 AM EDT Pre-op exam documented in this encounter Results * ECG 12 lead (08/26/2024 11:36 AM EDT) Narrative Mckinley Ferreira MD - 08/26/2024 11:36 AM EDT EKG reviewed by Dr Ferreira Mckinley Ferreira MD ECG ORDERABLES Final Result documented in this encounter Visit Diagnoses Diagnosis Morbid obesity with BMI of 50.0-59.9, adult (CMS/[facility] V24, [facility] V28)- Primary Pre-op exam Hand numbness Disturbance of skin sensation Type 2 diabetes mellitus without complication, with long-term current use of insulin (CMS/HCC V24, CMS/[facility] V28) Primary hypertension Unspecified essential hypertension Chronic pain of right knee documented in this encounter Historical Medications * This list may reflect changes made after this encounter. ergocalciferol (VITAMIN D-2) 1,250 mcg (50,000 unit) capsule Take 1 capsule (50,000 Units total) by mouth 1 (one) time per week. 08/08/2024 added in this encounter Care Teams Handbag Framer Relationship Specialty Start Date End Date Mckinley Ferreira MD [address] [place] [address] PCP - General Internal Medicine 03/15/24 documented as of this encounter
--- OUTSIDE RECORDS SUMMARY | 2024-08-27 14:13 | XMS_ITS ---
Author Organization [facility] Address [address] [place] [address] Care Team Providers Care Parts Technician Name Role Phone Hanna RANGEL, Mckinley Primary Care Provider Unavailab Sanjay Garsia Unavailable [phone] REASON FOR VISIT SD appt Encounters Encounter Location Date Provider Diagnosis [facility] [address] [place] [address] 08/01/2023 Sanjay Lemons Plan Of Treatment No Information Progress Notes * Kenny CANDOB:1965 ( 57 yo M)Acc No.[id number]:08/01/2023 Patient:?Kenny Can :1965???Age:57 Y???Sex:Male Address:[address] [place] [address], [phone] * true * Date:? Generated for Maddie espinoza/Laureano/eTransmitting on:?08/27/2024 02:12 PM EDT
--- OUTSIDE RECORDS SUMMARY | 2024-08-27 14:13 | XMS_ITS | Clinical Summary ---
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 024 Active umeclidinium (Incruse Ellipta) 62.5 mcg/actuation inhalation Inhale 1 Puff into the lungs daily. 024 Active fluticasone propionate (FLONASE) 50 mcg/actuation nasal spray 2 Sprays by Each Nare route daily. 024 Active diclofenac (VOLTAREN) 1 % topical gel Apply 4 g topically 2 times daily as needed (knee pain). 024 Active alfuzosin (UROXATRAL) 10 mg 24 hr tablet Take 1 tablet (10 mg total) by mouth 1 (one) time each day. 024 Active ipratropium-albu teroL (DUONEB) 0.5-2.5 mg/3 mL nebulizer solution Inhale 3 mL into the lungs 4 times daily. 023 Active buPROPion XL (WELLBUTRIN XL) 300 mg 24 hr tablet Take 1 tablet (300 mg total) by mouth 1 (one) time each day. 022 Active blood sugar diagnostic (FreeStyle Lite Strips) test strip Use one test strip to check blood sugar twice a day Active lancets 30 gauge [facility] [place] one lancet to check blood sugar twice a day Active medical supply, miscellaneous (MISCELLANEOUS MEDICAL SUPPLY [facility] [place] BLOOD GLUCOSE MONITORING SUPPL (FREESTYLE LITE) Use to check blood sugar twice a day 022 Active sodium chloride-aloe vera ([place] Saline) gel topical gel 0.5 Inches by Nasal route as needed for Other (for nasal dryness). 024 Active medical supply, miscellaneous (MISCELLANEOUS MEDICAL SUPPLY [facility] [place]) ELASTIC BANDAGES & SUPPORTS (ABDOMINAL BINDER/ELASTIC 2XL) [facility] 1 Units by Does not apply route continuous. 020 Active ibuprofen (ADVIL,MOTRIN) 600 mg tablet 1 tablet with food or milk as needed Orally Three times a day Active cycloPHOSphamide (CYTOXAN) 50 mg capsule as directed Orally Active cyanocobalamin (VIT B-12) 1,000 mcg tablet extended release ER tablet Take 1 tablet (1,000 mcg total) by mouth 1 (one) time per week. 023 Active traZODone (DESYREL) 50 mg tablet Take 1 tablet (50 mg total) by mouth at bedtime. 024 Active metFORMIN (GLUCOPHAGE) 500 mg tablet Take 1 tablet (500 mg total) by mouth 1 (one) time each day with breakfast. 90 tablet 1 025 Active furosemide (LASIX) 40 mg tablet Take 1 tablet (40 mg total) by mouth 1 (one) time each day. 90 tablet 025 Active atorvastatin (LIPITOR) 40 mg tablet Take 1 tablet (40 mg total) by mouth 1 (one) time each day. 90 tablet 025 Active albuterol HFA (PROAIR HFA ; PROVENTIL HFA ; VENTOLIN HFA) 90 mcg/actuation inhaler Inhale 2 Puffs into the lungs every 4 hours as needed for Cough or Wheezing. 6.7 g 1 025 Active amLODIPine (NORVASC) 10 mg tablet TAKE 1 TABLET(10 MG) BY MOUTH 1 TIME EACH DAY 90 tablet 025 Active budesonide (PULMICORT) 0.5 mg/2 mL nebulizer solution Take 2 mL (0.5 mg total) by nebulization 1 (one) time each day. 025 Active semaglutide (Ozempic) 2 mg/dose (8 mg/3 mL) injection penIndications:T ype 2 diabetes mellitus without complication, without long-term current use of insulin [place] [place] [facility] V28) Inject 2 mg under the skin every 7 (seven) days. 3 mL 1 025 Active lisinopriL (PRINIVIL,ZESTRI L) 10 mg tablet TAKE 1 TABLET BY MOUTH DAILY 90 tablet 1 Active ergocalciferol (VITAMIN D-2) 1,250 mcg (50,000 unit) capsule Take 1 capsule (50,000 Units total) by mouth 1 (one) time per week. Active lisinopriL (PRINIVIL,ZESTRI L) 10 mg tablet Take 1 Tablet by mouth. - OralTake 1 Tablet by mouth. - Oral 90 tablet 025 2024 Discontinued semaglutide (Ozempic) 1 mg/dose (4 mg/3 mL) injection pen Inject 1 mg under the skin every 7 (seven) days. 9 mL 1 025 2024 Discontinued Active Problems Problem Noted Date Diagnosed Date Morbid obesity with BMI of 5 0.0-59.9, adult ([facility] V24, [facility] V28) 02/08/2024 Palpitations 09/07/2023 Overview (02/08/2024): Last Assessment & Plan: The patient had [...] Shortness of breath 02/17/2023 Chronic heart failure with p reserved ejection fraction ([facility] V24, [facility] V28) 12/02/2021 Overview (02/08/2024): Last Assessment & Plan: Overall the patient [...] make any other changes at this time. Fatty liver disease, nonalcoholic 12/02/2021 Chronic pain of both knees 11/23/2021 Chronic respiratory failure ([facility] V24, [facility]/ C V28) 08/31/2021 Overview (02/08/2024): Last Assessment & Plan: The patient has a history of chronic hypoxic respiratory failure secondary to obesity hypoventilation and is maintained on supplemental oxygen. Continue to follow with pulmonology as recommended. Cocaine use 08/23/2021 Alcohol abuse 07/18/2019 Overview (02/08/2024): Last Assessment & Plan: The patient has improved his alcohol intake markedly, reporting that he only drinks 3-4 beers per week now. He was encouraged to continue with these efforts. Known medical problems 11/02/2018 Diverticulitis of large intestine with bleeding 09/04/2017 Obstructive sleep apnea 02/13/2017 Overview (02/08/2024): [facility] Home Polysomnogram: Date 02/13/2017; AHI 63, Unclassified apneas 0; Obstructive apneas 1; Central apneas 0; Mixed apneas 0; hypopneas 124; average oxygen saturation 94% (lowest 84% without saturations <88% for 5% or more of study) Last Assessment & Plan: The patient reports continued compliance with BiPAP. Continue current plan. Uncomplicated asthma 06/08/2016 Overview (02/08/2024): Last Assessment & Plan: Continue using Breo/Ellipta 1 puff once a day 100 mcg Continue with albuterol as needed Type 2 diabetes mellitus wit hout complication ([facility] V24, [facility] V28) 12/05/2014 Overview (02/08/2024): Last Assessment & Plan: LDL goal for [...] continue to address once results are reviewed. Obesity 04/18/2014 GERD (gastroesophageal reflux disease) 4 Primary hypertension 08/15/2012 Overview (02/08/2024): Last Assessment & Plan: Blood pressure is well-controlled on current medical therapies; continue amlodipine, furosemide, and lisinopril without change. We will update metabolic panel today. Insomnia 03/09/2012 Overview (02/08/2024): Elma from previous pcp Encounters Date Type Department Care Team Description 08/26/2024 10:00 AM EDT Consult Internal Medicine [place] [address] [place] [address] Mckinley Ferreira MD Morbid obesity with BMI of 50.0-59.9, adult ([facility] V24, [facility] V28) (Primary Dx); Pre-op exam; Hand numbness; Type 2 diabetes mellitus without complication, with long-term current use of insulin [place] [place], [facility] V28); Primary hypertension; Chronic pain of right knee 08/13/2024 2:45 PM EDT Office Visit Orthopedics [address] [phone] Bassam Aranda PA Primary osteoarthritis of both knees (Primary Dx) 08/09/[address] [phone] Aggie Rush MD Med Refill 07/29/2024 Lab Requisition [facility] [address] [facility] [place] [phone] Carlee Forrester PA Benign prostatic hyperplasia with lower urinary tract symptoms 07/11/2024 2:00 PM EDT Office Visit Endocrinology [address] [phone] Aggie Rush MD Type 2 diabetes mellitus without complication, without long-term current use of insulin ([facility] V24, [facility] V28) (Primary Dx) 06/26/2024 11:00 AM EST Office Visit Internal Medicine - [address] [phone] Mckinley Ferreira MD Type 2 diabetes mellitus without complication, with long-term current use of insulin ([facility] V24, [facility] V28) (Primary Dx); Primary hypertension; Morbid obesity with BMI of 50.0-59.9, adult ([facility] V24, [facility] V28) 06/20/2024 11:30 AM EST Office Visit Orthopedics - [address] [phone] Bassam Aranda PA Primary osteoarthritis of both knees (Primary Dx) 06/05/2024 10:45 AM EST Office Visit Orthopedics [address] [phone] Bassam Aranda PA Primary osteoarthritis of both knees (Primary Dx) from Last 3 Months Immunizations Name Administration Dates Next Due Influenza Quadravalent, MDCK , 0.5ml, preservative free (Flucelvax) 6mo and older 02/20/2023 Influenza Quadrivalent, 0.5m l, preservative free (Fluarix; FluLaval; Fluzone) ages 6mo and older (Afluria) 3yo and older 03/20/2022,08/06/2021 Influenza trivalent, with pr eservative (Fluzone; Afluria) 6mo and older 03/09/2012 PPD Test 03/23/2015 Pneumococcal polysaccharide 23 valent (Pneumovax 23) 2yo and older 02/26/2002 Tdap Tetanus diptheria acell ular pertussis (Boostrix; Adacel) 7yo and older 09/11/2014 Surgical History Surgery Date Site/Laterality Comments NOSE SURGERY 05/01/2012 PROCEDURE: DE UNLISTED PROCEDURE NOSE; COMMENT: Gigi. left deviated septum KNEE SURGERY Right PROCEDURE: HISTORICAL KNEE SURGERY; COMMENT: Dr Russo, medial meniscus? OTHER SURGICAL HISTORY PROCEDURE: DE UNLISTED PX [facility] Medical History Medical History Date Comments Type 2 diabetes mellitus wit hout complication ([facility] V24, [facility] V28) 12/05/2014 DX:Type 2 diabetes mellitus without complication ([facility]) Diverticulitis of large inte мария with bleeding 09/04/2017 DX:Diverticulitis of large i ntestine with bleeding GERD (gastroesophageal reflux disease) 4 DX:GERD (gastroesophageal reflux disease) HTN (hypertension) 08/15/2012 DX:HTN (hyper tension) Insomnia 03/09/2012 DX:Insomnia; COM MENT: Trazodone and ambien from previous pcp Obesity 04/18/2014 DX:Obesity Obstructive sleep apnea 02/13/2017 DX:Obstr uctive sleep apnea; COMMENT: [facility] Home Polysomnogram: Date 02/13/2017; AHI 63, Unclassified apneas 0; Obstructive apneas 1; Central apneas 0; Mixed apneas 0; hypopneas 124; average oxygen saturation 94% (lowest 84% without saturations <88% for 5% or more of study) Uncomplicated asthma 06/08/2016 DX:Uncompli cated asthma Family History Relation Name Status Comments Brother Alive x2, healthy Father unknown Mother (Age 64) [place], diabet ic, smoker, HTN Sister 1 Alive healthy Sister 2 (Age 50) ?HIV Social History Tobacco Use Types Packs/Day Years [...] Orientation Straight 03/15/2024 12 :10 PM EST Obstetrics History Last Filed Vital Signs Vital Sign Reading Time Taken Comments Blood Pressure 96/62 08/26/2024 10:02 AM EDT Pulse 72 08/26/2024 10:02 AM EDT Temperature 36.2 ??C (97.2 ??F) 07/11/2024 1:57 PM ED T Respiratory Rate 16 08/13/2024 2:07 PM EDT Oxygen Saturation 98% 07/11/2024 1:57 PM EDT Inhaled Oxygen Concentration - - Weight 127 kg (279 lb) 08/26/2024 10:02 AM EDT Height 167.6 cm (5' 6 ) 08/26/2024 10:02 AM EDT Body Mass Index 45.03 08/26/2024 10:02 AM EDT Plan of Treatment Upcoming Encounters Date Type Department Care Team (Late st Contact Info) Description 09/13/2024 9:40 AM EDT Consult [facility] [address] [facility] [address] [place] [phone] Fidelina Lau NP [address] [facility] [address] [place] [address] 09/24/2024 11:00 AM EDT Office Visit Pulmonolgy - [place] [address] [facility] [address] [place] [phone] Helen Palumbo NP [address] [facility] [address] [place] [address] 01/13/2025 1:00 PM EDT Office Visit Endocrinology - [place] [address] [place] [phone] Aggie Rush MD [address] [place] [address] Health Maintenance Due Date Last Done Comments COVID-19 Vaccine (#1) 1970 Diabetes: Annual Foot Exam 09/09/1975 Hepatitis A Vaccines (1 of 2 - Risk 2-dose series) 1984 Hepatitis B Vaccines (1 of 3 - 19+ 3-dose series) 1984 Pneumococcal Vaccine: 50+ Years (2 of 2 - PCV) 02/26/2003 02/26/2002 Pneumococcal Vaccine: Pediatrics (0 to 5 Years) and At-Risk Patients (6 to 64 Years) (2 of 2 - PCV) 02/26/2003 02/26/2002 Zoster Vaccines (1 of 2) 09/09/2015 Depression Screening 04/09/2022 12/16/2016 HIV Screening 04/09/2022 Medicare Annual Wellness Visit 04/09/2022 Social Influencers of Health Screening 04/09/2022 DTaP,Tdap,and Td Vaccines (2 - Td or Tdap) 09/11/2024 09/11/2014 Diabetes: Blood Sugar Control Test (HGBA1C) 12/24/2024 06/26/2024, 11/14/2023, 11/14/2023 Influenza Vaccine (Season Ended) 2024 02/20/2023, 03/20/2022, 03/20/2022, Additional history exists Diabetes: Annual Retina Eye Exam 04/16/2025 04/16/2024 Diabetes: Annual Urine Albumin-Creatinine Ratio (uACR) 06/26/2025 06/26/2024, 02/21/2024, 12/12/2023 Diabetes: Annual GFR (Glomerular Filtration Rate) 06/26/2025 06/26/2024, 12/18/2023, 12/12/2023, Additional history exists Hypertension/CHF/CAD Annual BMP Blood Test 06/26/2025 06/26/2024, 12/18/2023, 12/12/2023, Additional history exists Colorectal Cancer Screening: Colonoscopy 03/21/2029 03/21/2024, 03/21/2018 Cholesterol Screening (Lipid Panel) 06/26/2029 06/26/2024, 12/12/2023, 12/12/2023, Additional history exists Hepatitis C Screening Completed 09/17/2015 HIB Vaccines Aged Out No longer eligi ble based on patient's age to complete this topic HPV Vaccines Aged Out No longer eligi ble based on patient's age to complete this topic IPV Vaccines Aged Out No longer eligi ble based on patient's age to complete this topic MMR Vaccines Aged Out No longer eligi ble based on patient's age to complete this topic Meningococcal ACWY Vaccine Aged Out N o longer eligible based on patient's age to complete this topic Meningococcal B Vaccine Aged Out No l onger eligible based on patient's age to complete this topic RSV Immunization Patients Under 20 months Aged Out No longer eligible based on patient's age to complete this topic Varicella Vaccines Aged Out No longer eligible based on patient's age to complete this topic Procedures Procedure Name Priority Date/Time Associated Diagnosis Comments ECG Routine 08/26/2024 3:55 PM EDT ECG 12-LEAD Routine 08/26/2024 11:36 AM EDT Pre-op exam PROSTATE SPECIFIC ANTIGEN DIAGNOSTIC Routine 07/29/2024 9:45 AM EDT Benign prostatic hyperplasia with lower urinary tract symptoms COMPREHENSIVE METABOLIC PANEL Routine 06/26/2024 10:43 AM EST Type 2 diabetes mellitus without complication, with long-term current use of insulin ([facility] V24, [facility]/HCC V28) HEMOGLOBIN A1C Routine 06/26/2024 10:43 AM EST Type 2 diabetes mellitus without complication, with long-term current use of insulin (CMS/HCC V24, CMS/HCC V28) LIPID PANEL WITH REFLEX TO DIRECT LDL Routine 06/26/2024 10:43 AM EST Type 2 diabetes mellitus without complication, with long-term current use of insulin (CMS/HCC V24, CMS/HCC V28) MICROALBUMIN CREATININE URINE RATIO Routine 06/26/2024 10:43 AM EST Diabetes mellitus (CMS/HCC V24, CMS/HCC V28) DE ARTHROCENTESIS/ASPIRA TION/INJECTION MAJOR JOINT/BURSA W/O U/S GUIDANCE Routine 06/20/2024 11:30 AM EST Primary osteoarthritis of both knees DE ARTHROCENTESIS/ASPIRA TION/INJECTION MAJOR JOINT/BURSA W/O U/S GUIDANCE Routine 06/05/2024 10:45 AM EST Primary osteoarthritis of both knees EXTERNAL DIABETIC RETINA EYE EXAM 04/16/2024 COLONOSCOPY Routine 03/21/2024 10:42 AM EST Hx of colonic polyps DEPRESSION SCREENING Routine 12/16/2016 HEPATITIS C SCREENING Routine 09/17/2015 from Last 3 Months or Most Recently Relevant to Health Maintenance Results * ECG (08/26/2024 3:55 PM EDT) Historical Provider ECG ORDERABLES Final Res ult * ECG 12 lead (08/26/2024 11:36 AM EDT) Narrative Mckinley Ferreira MD - 08/26/2024 11:36 AM EDT EKG reviewed by Dr Ferreira Mckinley Ferreira MD ECG ORDERABLES Final Result * Prostate specific antigen diagnostic (07/29/2024 9:45 AM EDT) PSA 2.67 0.00 - 4.00 ng/mL LAB CHEMISTRY METHOD 07/29/2024 2:43 PM EDT [facility] Blood Venous blood specimen / Unknown 07/29/2024 9:45 AM EDT 07/29/2024 1:52 PM EDT Narrative [facility] - 07/29/2024 2:43 PM EDT The Siemens Advia Centaur Chemiluminescent Immunoassay is used. Results obtained with different assay methods or kits cannot be used interchangeably. Results cannot be interpreted as absolute evidence of the presence or absence of malignant disease. Carlee FRIED LAB BLOOD ORDERABLES Final Resul t Performing Organization Address [facility]/ZIP Co de Phone Number [facility] [address] [place] [address], [place] [phone] * Lipid panel with reflex to direct LDL (06/26/2024 10:43 AM EST) Pathologist [facility] Cholesterol 128 0 - 200 mg/dL LAB CHEMISTRY METHOD 06/26/2024 3:03 PM EST [facility] Triglycerides 64 0 - 150 mg/dL LAB CHEMISTRY METHOD 06/26/2024 3:03 PM EST [facility] HDL 52 >=40 mg/dL LAB CHEMISTRY METHOD 06/26/2024 3:03 PM EST [facility] LDL Calculated 63 0 - 100 mg/dL LAB CHEMISTRY METHOD 06/26/2024 3:03 PM EST [facility] VLDL Cholesterol Herber 12.8 mg/dL LAB CHEMISTRY METHOD 06/26/2024 3:03 PM [facility] Non HDL Chol. (LDL+VLDL) 76 <145 mg/dL LAB CHEMISTRY METHOD 06/26/2024 3:03 PM EST [facility] Chol/HDL Ratio 2.5 0.0 - 4.4 LAB CHEMISTRY METHOD 06/26/2024 3:03 PM [facility] Blood Venous blood specimen / Unknown Venipuncture / Unknown 06/26/2024 10:43 AM EST 06/26/2024 10:43 AM EST us Mckinley Ferreira MD LAB BLOOD ORDERABLES Final Res ult Performing Organization Address [facility]/ZIP Co de Phone Number [facility] [address] [place] [address], [place] [phone] * Microalbumin creatinine urine ratio (06/26/2024 10:43 AM EST) Creatinine, Urine 297.0 mg/dL LAB CHEMISTRY METHOD 06/26/2024 4:02 PM [facility] Microalb, Ur 25.7 0.0 - 29.0 mg/L LAB CHEMISTRY METHOD 06/26/2024 4:02 PM [facility] Microalb/Creat Ratio 9 <30 mg/g creat LAB CHEMISTRY METHOD 06/26/2024 4:02 PM [facility] Urine Urine specimen obtained by clean catch procedure / Unknown Non-blood Collection / Unknown 06/26/2024 10:43 AM EST 06/26/2024 10:43 AM EST us Mckinley Ferreira MD LAB URINE ORDERABLES Final Res ult Performing Organization Address [facility]/ZIP Co de Phone Number [facility] [address] [place] [address], [place] [phone] * Hemoglobin A1c (06/26/2024 10:43 AM EST) [facility] Hemoglobin A1C 5.8 <6.5 % LAB CHEMISTRY METHOD 06/26/2024 9:51 PM [facility] Mean Bld Glu Estim. 120 mg/dL LAB CHEMISTRY METHOD 06/26/2024 9:51 PM [facility] Blood Venous blood specimen / Unknown Venipuncture / Unknown 06/26/2024 10:43 AM EST 06/26/2024 10:43 AM EST us Mckilney Ferreira MD LAB BLOOD ORDERABLES Final Res ult Performing Organization Address City/[facility]/ZIP Co de Phone Number [facility] [address] [place] [address], [place] [phone] * (ABNORMAL) Comprehensive metabolic panel (06/26/2024 10:43 AM EST) Sodium 140 133 - 145 mmol/L LAB CHEMISTRY METHOD 06/26/2024 3:03 PM [facility] Potassium 4.7 3.5 - 5.5 mmol/L LAB CHEMISTRY METHOD 06/26/2024 3:03 PM [facility] Chloride 105 96 - 110 mmol/L LAB CHEMISTRY METHOD 06/26/2024 3:03 PM [facility] CO2 32 21 - 32 mmol/L LAB CHEMISTRY METHOD 06/26/2024 3:03 PM [facility] Anion Gap 3 3 - 11 LAB CHEMISTRY METHOD 06/26/2024 3:03 PM [facility] Glucose 89 70 - 100 mg/dL LAB CHEMISTRY METHOD 06/26/2024 3:03 PM [facility] BUN 21 5 - 25 mg/dL LAB CHEMISTRY METHOD 06/26/2024 3:03 PM [facility] Creatinine 1.30 0.70 - 1.30 mg/dL LAB CHEMISTRY METHOD 06/26/2024 3:03 PM [facility] eGFR 64 >=60 mL/min/1. 73m2 LAB CHEMISTRY METHOD 06/26/2024 3:03 PM [facility] Comment:Calculation based on the??Chronic Kidney Disease Epidemiology Collaboration (CKD-EPI) equation refit??without adjustment for race. BUN/Creatinine Ratio 16.2 LAB CHEMISTRY METHOD 06/26/2024 3:03 PM [facility] Calcium 9.6 8.5 - 10.5 mg/dL LAB CHEMISTRY METHOD 06/26/2024 3:03 PM [facility] AST (SGOT) 15 10 - 42 unit/L LAB CHEMISTRY METHOD 06/26/2024 3:03 PM [facility] ALT (SGPT) 22 10 - 60 unit/L LAB CHEMISTRY METHOD 06/26/2024 3:03 PM EST [facility] Alkaline Phosphatase 97 42 - 121 unit/L LAB CHEMISTRY METHOD 06/26/2024 3:03 PM [facility] Total Protein 8.3(H) 6.0 - 8.0 g/dL LAB CHEMISTRY METHOD 06/26/2024 3:03 PM [facility] Albumin 4.4 3.2 - 5.0 g/dL LAB CHEMISTRY METHOD 06/26/2024 3:03 PM [facility] Total Bilirubin 0.5 0.0 - 1.4 mg/dL LAB CHEMISTRY METHOD 06/26/2024 3:03 PM [facility] Blood Venous blood specimen / Unknown Venipuncture / Unknown 06/26/2024 10:43 AM EST 06/26/2024 10:43 AM EST Mckinley Ferreira MD LAB BLOOD ORDERABLES Final Res ult [facility] [address] [place] [address], * DE ARTHROCENTESIS/ASPIRATION/INJECTION MAJOR JOINT/BURSA W/O U/S GUIDANCE (06/20/2024 11:30 AM EST) Narrative Dany Soliman MD - 06/20/2024 11:30 AM EST CORKY Willard ? 06/20/2024 11:47 AM L Inj/Asp: R knee Indications: pain Details: 22 G needle, anterolateral approach Medications: 4 mL lidocaine 1 %; 80 mg methylPREDNISolone acetate 80 mg/mL Outcome: tolerated well, no immediate complications Informed Consent: ??Site: ??Knee ??Laterality: ??Right ??Relevant images/test results available and reviewed: yes ?Health status cleared: ??Yes ??Procedure/treatment, purpose, treatment alternatives, risks/potential complications and benefits explained: yes ?Risk/complications/benefits details: ??Risks include but are not limited to: The treatment may not accomplish the desired results. ??Additionally bleeding, infection, damage to tendon, nerve, cartilage, muscle; thinning or lightening of the skin in the area of injection; flushing or redness of the face, elevated blood pressure or blood sugar, allergic reaction, rash, increased pain Benefits include relief of inflammation and pain ??Patient questions answered: yes ?Patient agrees, verbalizes understanding, and wants to proceed: yes ?Consent given by: ??Patient ??Informed consent discussion completed by Physician/ANGELES with patient: ?? Verbal ??Pre-procedure timeout performed: yes ?? Bassam FRIED IN CLINIC/BEDSIDE ORDERABLES Fin al Result * DE ARTHROCENTESIS/ASPIRATION/INJECTION MAJOR JOINT/BURSA W/O U/S GUIDANCE (06/05/2024 10:45 AM EST) Narrative Dany Soliman MD - 06/05/2024 10:45 AM EST CORKY Willard ? 06/05/2024 11:07 AM L Inj/Asp: L knee Indications: pain Details: 22 G needle, anterolateral approach Medications: 4 mL lidocaine 1 %; 80 mg methylPREDNISolone acetate 80 mg/mL Outcome: tolerated well, no immediate complications Informed Consent: ??Site: ??Knee ??Laterality: ??Left ??Relevant images/test results available and reviewed: yes ?Health status cleared: ??Yes ??Procedure/treatment, purpose, treatment alternatives, risks/potential complications and benefits explained: yes ?Risk/complications/benefits details: ??Risks include but are not limited to: The treatment may not accomplish the desired results. ??Additionally bleeding, infection, damage to tendon, nerve, cartilage, muscle; thinning or lightening of the skin in the area of injection; flushing or redness of the face, elevated blood pressure or blood sugar, allergic reaction, rash, increased pain Benefits include relief of inflammation and pain ??Patient questions answered: yes ?Patient agrees, verbalizes understanding, and wants to proceed: yes ?Consent given by: ??Patient ??Informed consent discussion completed by Physician/ANGELES with patient: ?? Verbal ??Pre-procedure timeout performed: yes ?? Bassam FRIED IN CLINIC/BEDSIDE ORDERABLES Fin al Result * External Diabetic Retina Eye Exam Report (04/16/2024) Anatomical Region Laterality Modality Ultrasound us Provider [facility] US PROCEDURES Final Result * COLONOSCOPY Anesthesia - MAC; [facility] END[facility] (03/21/2024 10:42 AM EST) Anatomical Region Laterality Modality Endoscopy 03/21/2024 10:2 3 AM EST Impressions 03/21/2024 10:43 AM EST - Two 5 to 9 mm polyps in the transverse colon and in ? the ascending colon, removed with a cold snare. ? Resected and retrieved. ? - Patent end-to-end colo-colonic anastomosis. ? - Internal hemorrhoids. Recommendation: ?- Await pathology results. ? - Repeat colonoscopy in 5 years for surveillance. Narrative 03/21/2024 10:43 AM EST [facility] GI Patient Name: Kenny Faust Procedure Date: 03/21/2024 10:23 AM Date of : 1965 Age: 58 Gender: Male Note Status: Finalized Attending MD: Rui Mckeon MD, Procedure Date No Time: 03/21/2024 Procedure: ? Colonoscopy Indications: ? High risk colon cancer surveillance: Personal history ? of colonic polyps Providers: ? Rui Mckeon MD Referring MD: ?Rui Mckeon MD Medicines: ? Monitored Anesthesia Care Complications: ? No immediate complications. Estimated blood loss: ? Minimal. Estimated Blood Loss: ? Estimated blood loss was minimal. Procedure: ? Pre-Anesthesia Assessment: ? - Prior to the procedure, a History and Physical was ? performed, and patient medications and allergies were ? reviewed. The patient is competent. The risks and ? benefits of the procedure and the sedation options and ? risks were discussed with the patient. All questions ? were answered and informed consent was obtained. ? Patient identification and proposed procedure were ? verified by the physician, the nurse, the cartridge filler ? and the injection mold tooling technician in the pre-procedure area in the ? endoscopy suite. Mental Status Examination: alert and ? oriented. Airway Examination: normal oropharyngeal ? airway and neck mobility. Respiratory Examination: ? clear to auscultation. CV Examination: normal. ? Prophylactic Antibiotics: The patient does not require ? prophylactic antibiotics. Prior Anticoagulants: The ? patient has taken no anticoagulant or antiplatelet ? agents. ASA Grade Assessment: III - A patient with ? severe systemic disease. After reviewing the risks and ? benefits, the patient was deemed in satisfactory ? condition to undergo the procedure. The anesthesia ? plan was to use monitored anesthesia care (MAC). ? Immediately prior to administration of medications, ? the patient was re-assessed for adequacy to receive ? sedatives. The heart rate, respiratory rate, oxygen ? saturations, blood pressure, adequacy of pulmonary ? ventilation, and response to care were monitored ? throughout the procedure. The physical status of the ? patient was re-assessed after the procedure. ? After I obtained informed consent, the scope was ? passed under direct vision. Throughout the procedure, ? the patient's blood pressure, pulse, and oxygen ? saturations were monitored continuously. The Olympus ? Colonoscope was introduced through the anus and ? advanced to the cecum, identified by appendiceal ? orifice and ileocecal valve. The colonoscopy was ? performed without difficulty. The patient tolerated ? the procedure well. The quality of the bowel ? preparation was good. Findings: ?The perianal and digital rectal examinations were ? normal. ? Two pedunculated polyps were found in the transverse ? colon and ascending colon. The polyps were 5 to 9 mm ? in size. These polyps were removed with a cold snare. ? Resection and retrieval were complete. Estimated blood ? loss was minimal. ? There was evidence of a prior end-to-end colo-colonic ? anastomosis in the sigmoid colon. This was patent. ? Internal hemorrhoids were found during retroflexion. ? The hemorrhoids were Grade II (internal hemorrhoids ? that prolapse but reduce spontaneously). Procedure Code(s): ? --- Professional --- ? 88008, Colonoscopy, flexible; with removal of ? tumor(s), polyp(s), or other lesion(s) by snare ? technique Diagnosis Code(s): ? --- Professional --- ? D12.3, Benign neoplasm of transverse colon (hepatic ? flexure or splenic flexure) ? D12.2, Benign neoplasm of ascending colon CPT copyright 2020 [employer]. All rights reserved. The codes documented in this report are preliminary and upon private duty rn review may be revised to meet current compliance requirements. Rui Mckeon MD 03/21/2024 10:42:42 AM This report has been signed electronically.Rui Mckeon MD Number of Addenda: 0 Note Initiated On: 03/21/2024 10:23 AM Scope Withdrawal Time: 0 hours 6 minutes 11 seconds Scope In: 10:33:57 AM Scope Out: 10:41:29 AM ? Endoscopy Department at [facility] - [address] [place] [address], ? [place] [address] Procedure Note Rui Mckeon MD - 03/21/2024 [facility] GI Patient Name: Kenny Faust Procedure Date: 03/21/2024 10:23 AM Date of : 1965 Age: 58 Gender: Male Note Status: Finalized Attending MD: Rui Mckeon MD, Procedure Date No Time: 03/21/2024 Procedure: Colonoscopy Indications: High risk colon cancer surveillance: Personalhistory of colonic polyps Providers: Rui Mckeon MD Referring MD: Rui Mckeon MD Medicines: Monitored Anesthesia Care Complications: No immediate complications. Estimated blood loss: Minimal. Estimated Blood Loss: Estimated blood loss was minimal. Procedure: Pre-Anesthesia Assessment: - Prior to the procedure, a History and Physicalwas performed, and patient medications and allergieswere reviewed. The patient is competent. The risks and benefits of the procedure and the sedation optionsand risks were discussed with the patient. Allquestions were answered and informed consent was obtained. Patient identification and proposed procedure were verified by the physician, the nurse, theanesthetist and the injection mold tooling technician in the pre-procedure area in the endoscopy suite. Mental Status Examination: alertand oriented. Airway Examination: normal oropharyngeal airway and neck mobility. Respiratory Examination: clear to auscultation. CV Examination: normal. Prophylactic Antibiotics: The patient does notrequire prophylactic antibiotics. Prior Anticoagulants: The patient has taken no anticoagulant or antiplatelet agents. ASA Grade Assessment: III - A patient with severe systemic disease. After reviewing the risksand benefits, the patient was deemed in satisfactory condition to undergo the procedure. The anesthesia plan was to use monitored anesthesia care (MAC). Immediately prior to administration of medications, the patient was re-assessed for adequacy to receive sedatives. The heart rate, respiratory rate, oxygen saturations, blood pressure, adequacy of pulmonary ventilation, and response to care were monitored throughout the procedure. The physical status ofthe patient was re-assessed after the procedure. After I obtained informed consent, the scope was passed under direct vision. Throughout theprocedure, the patient's blood pressure, pulse, and oxygen saturations were monitored continuously. TheOlympus Colonoscope was introduced through the anus and advanced to the cecum, identified by appendiceal orifice and ileocecal valve. The colonoscopy was performed without difficulty. The patient tolerated the procedure well. The quality of the bowel preparation was good. Findings: The perianal and digital rectal examinations were normal. Two pedunculated polyps were found in thetransverse colon and ascending colon. The polyps were 5 to 9mm in size. These polyps were removed with a coldsnare. Resection and retrieval were complete. Estimatedblood loss was minimal. There was evidence of a prior [id number]-bmycpmr-colonic anastomosis in the sigmoid colon. This waspatent. Internal hemorrhoids were found duringretroflexion. The hemorrhoids were Grade II (internal hemorrhoids that prolapse but reduce spontaneously). Procedure Code(s): --- Professional --- 37831, Colonoscopy, flexible; with removal of tumor(s), polyp(s), or other lesion(s) by snare technique Diagnosis Code(s): --- Professional --- D12.3, Benign neoplasm of transverse colon (hepatic flexure or splenic flexure) D12.2, Benign neoplasm of ascending colon CPT copyright 2020 [employer]. All rights reserved. The codes documented in this report are preliminary and upon private duty rn reviewmay be revised to meet current compliance requirements. Rui Mckeon MD 03/21/2024 10:42:42 AM This report has been signed electronically.Rui Mckeon MD Number of Addenda: 0 Note Initiated On: 03/21/2024 10:23 AM Scope Withdrawal Time: 0 hours 6 minutes 11 seconds Scope In: 10:33:57 AM Scope Out: 10:41:29 AM Endoscopy Department at [facility] - [address] [place] [id number] IMPRESSION: - Two 5 to 9 mm polyps in the transverse colon and in the ascending colon, removed with a cold snare. Resected and retrieved. - Patent end-to-end colo-colonic anastomosis. - Internal hemorrhoids. Recommendation: - Await pathology results. - Repeat colonoscopy in 5 years for surveillance. Rui Mckeon MD GI~PROCEDURE ORDERABLES Fin al Result * Depression Screening (12/16/2016) Depression Screening abstracted us Historical Provider HEALTH MAINTENANCE Final Result * Hepatitis C Screening (09/17/2015) Hepatitis C Screening abstracted Historical Provider HEALTH MAINTENANCE Final Result from Last 3 Months or Most Recently Relevant to Health Maintenance Insurance [place] [place] [address] MEDICARE Member Subscriber Plan / Payer (Ef fective 2017-Present) Name:Kenny Faust Relation to Subscriber:Self Name:Kenny Faust Payer ID:[id number] Group ID:[id number] Type:Not on file Address: [place] [address] [address] [place] [phone] Advance Directives Documents on File Type Date Recorded Patient Chili Powder Mixer Expl anation Health Care Decision (hx) 03/02/2023 AD CORTEZ DIRECTIVE Health Care Decision (hx) 03/02/2023 AD CORTEZ DIRECTIVE Health Care Decision (hx) 03/02/2023 AD CORTEZ DIRECTIVE Health Care Decision (hx) 03/02/2023 AD CORTEZ DIRECTIVE Health Care Decision (hx) 03/02/2023 AD CORTEZ DIRECTIVE Health Care Decision (hx) 03/02/2023 AD CORTEZ DIRECTIVE Care Teams 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
--- OUTSIDE RECORDS SUMMARY | 2024-08-27 14:13 | XMS_ITS ---
[facility] Organization [facility] Address [address] [place] [address] Care Team Providers Care Cert Occupational Therapy Asst Name Role Phone Hanna RANGEL, Mckinley Primary Care Provider UnavailSanjay Sandy Unavailable [phone] Allergies Allergen (clinical drug ingredient) Drug/Non Drug Allergy documented on EMR Reaction Allergy Type Onset Date Status Penicillin Unknown Drug Allergy Active REASON FOR VISIT At Risk Footcare, Painful Nail(s) aggrevated by shoes and causing difficulty standing/walking, Wart(s), Toe Irritation Medications Medication SIG (Take, Route, Frequency, Duration) Notes Start Date End Date Status Breo Ellipta 100-25 MCG/ACT 1 puff Inhal ation Once a day Active Budesonide (Inhalation) Active Lisinopril 5 MG 1 tablet Orally Once a day for 30 day(s) Active metFORMIN HCl 500 MG 1 tablet with a melany l Orally Once a day for 30 day(s) Active amLODIPine Besylate 10 MG 1 tablet Orall y Once a day for 30 day(s) Active Ambien 10 MG 1 tablet at bedtime as needed Orally Once a day Active Furosemide 40 MG 1 tablet Orally Once a day for 30 day(s) Active Pulmicort Active Ventolin HFA 108 (90 Base) MCG/ACT 1 puff as needed Inhalation every 4 hrs Active traZODone HCl Active Chlorhexidine Active Ibuprofen 600 MG 1 tablet with food o r milk as needed Orally Three times a day Active Cetirizine HCl Activ e cycloPHOSphamide 50 MG as directed Orally Active Ozempic Active Extra Depth Orthopedic Shoes, (1) Pair With (3) Pair Custom Heat Molded Multidensity Innersoles Dx: NIDDM/PVD(E11.51), Hammertoe Foot Deformity(M20.41,M20.42) , Preulcerative Skin Lesion(s)(L85.1) Wear Daily for 365 days 08/09/2023 Active Social History Tobacco Use: Social History Observation Description Date Details (start date - stop date) Never Smoker NA - NA Tobacco Use/Smoking Question Answer Notes Are you a: nonsmoker Alcohol Screen Question Answer Notes Did you have a drink containing alcohol in the p ast year? Yes Points 0 Interpretation Negative Tobacco use other than smoking: Question Answer Notes Are you an other tobacco user? No Problems Problem Type SNOMED Code ICD Code Onset Dates Problem Status W/U Status Risk Notes Problem Plantar wart (38635178) Plantar wart (B07.0) Active confirmed Vital Signs Height 5ft 6in in 08/09/2023 Weight 355 lbs 08/09/2023 BMI 57.29 kg/m2 08/09/2023 Procedures Procedure Date Ordered Date Performed Result Body Sit e 96602-HFREJQW NAIL, 6 OR MORE 08/09/2023 N/A 93723-Mkxa Destruction, 1-14 08/09/2023 N/A 84694-UTAK SKIN LESIONS, OVER 4 08/09/2023 N/A Encounters Encounter Location Date Provider Diagnosis [facility] [address] [address] 08/09/2023 Sanjay Lemons Type 2 diabetes mellitus with diabetic peripheral angiopathy without gangrene E11.51 ; Plantar wart B07.0 ; Tinea unguium B35.1 ; Pain in right toe(s) M79.674 ; Pain in left toe(s) M79.675 ; Right foot pain M79.671 ; Left foot pain M79.672 ; Other hammer toe(s) (acquired), right foot M20.41 and Other hammer toe(s) (acquired), left foot M20.42 Assessments Encounter Date Diagnosis (ICD Code) Assessment Notes Treatment Notes Treatment Clinical Notes Section Notes 08/09/2023 Type 2 diabetes mellitus with diabetic peripheral angiopathy without gangrene (ICD-10 - E11.51) 08/09/2023 Plantar wart (ICD-10 - B07.0) 08/09/2023 Tinea unguium (ICD-10 - B35.1) 08/09/2023 Pain in right toe(s) (ICD-10 - M79.674) 08/09/2023 Pain in left toe(s) (ICD-10 - M79.675) 08/09/2023 Right foot pain (ICD-10 - M79.671) 08/09/2023 Left foot pain (ICD-10 - M79.672) 08/09/2023 Other hammer toe(s) (acquired), right foot (ICD-10 - M20.41) Patient Educated with: DIABETIC FOOT CARE INSTRUCTIONS.p df (DIABETIC FOOT CARE INSTRUCTIONS.p df) 08/09/2023 Other hammer toe(s) (acquired), left foot (ICD-10 - M20.42) Plan Of Treatment Medication Medication Name Sig Start Date Stop Date Notes Extra Depth Orthopedic Shoes , (1) Pair With (3) Pair Custom Heat Molded Multidensity Innersoles Dx: NIDDM/PVD(E11.51), Hammertoe Foot Deformity(M20.41,M20.42), Preulcerative Skin Lesion(s)(L85.1) Wear Daily for 365 days 08/09/2023 Treatment Notes Assessment Notes Other hammer toe(s) (acquired), right fo ot Patient Educated with: DIABETIC FOOT CARE INSTRUCTIONS.pdf (DIABETIC FOOT CARE INSTRUCTIONS.pdf) Pending Test Test Name Order Date 69724-PZIYBGA NAIL, 6 OR MORE 08/09/2023 88125-Sudm Destruction, 1-14 08/09/2023 12448-CRJD SKIN LESIONS, OVER 4 08/09/19 24 Next Appt Details Follow Up: prn, Reason: Procedure Notes * Category Sub-Category Detail Notes Wart Treatment Procedure Verrucae were de brided to pin-point bleeding margins with sterile 15 surgical blade, silver nitrate chemocautery applied, recomm. immune-boosting meds such as zinc, recomm. follow up with topical chemosurgical agents, Pt defers any other forms of tx (37523) Debride Nail 6-10 Nail debridement Nail debridem ent performed extensively to reduce/remove overall nail length, girth, thickness, subungual debris, and necrotic tissue, by manual and electrical means through the use of a nail nipper and/or dremel, to more viable healthy nail plate or bed tissue 1-5. Silver nitrate used for any petechial bleeding as necessary. Patient chooses, no pharmaceutical tx (77280) Keratoma Treatment Parring or Cutting o f Benign Hyperkeratotic Lesion(s) 70483 ( >4 Lesions) - The Benign hyperkeratotic lesions, as described above were pared, and/or cut utilizing a sterile #15 blade, tissue nippers, and/or dremel, Q8 Progress Notes * Kenny CANDOB:1965 ( 57 yo M)Acc No.[id number]:08/09/2023 Progress Note Patient:?Kenny Can Provider:?Sanjay Lemons DPM :1965???Age:57 Y???Sex:Male Yoan e:08/09/2023 Address:[address] [place], [place] [id number] Pcp:Rishabh Christie Subjective: * Chief Complaints: * ???At Risk FootcarePainful N ail(s) aggrevated by shoes and causing difficulty standing/walkingWart(s)Toe Irritation * HPI: ???At Risk footcare:?Pt States Last PCP Visit:?Date?05/18/2023 ???Toe pain:?Location:?B/L feet.?Duration:?several years.?Course:?worse.?Aggrevated by:?shoes, any pressure.?Treatments:?change in shoes.? * ROS:?General/Constitutional:?Nausea?denies.?Vomiting?denies.?Hunger Thirst?denies.?Loss appetite?denies.?Chills?denies.?Fatigue?denies.?Fever?denies.?Night Sweats?denies.?Unexplained weight loss?denies.?Unexplained weight gain?denies.?HEENTM:?Dentures?denies.?Dizziness?denies.?Glasses/contacts?denies.?Retinopathy?de nies.?Blurred/double vision?denies.?TMJ?denies.?Discharge/drainage?denies.?Implants?denies.?Sore throat?denies.?Dental implants?denies.?Hard of hearing ?denies.?Difficulty chewing/swallowing/speaking?denies.?Nose bleeds?denies.?Sore mouth?denies.?Respiratory:?On Oxygen?admits.?Pneumonia/pleurisy?denies.?Bronchitis?denies.?Emphysema?denies.?C oughing?denies.?Cough blood?denies.?Shortness of breath?denies.?Wheezing?denies.?Cardiovascular:?Pacemaker?denies.?MVP?denies.?WPW?denies.?CHF?denies.?Heart attack?denies.?Septal defect?denies.?Rapid beat?denies.?Chest pain ?denies.?Atrial Fib.?denies.?Murmur/Palpitations?denies.?Gastrointestinal:?Hemorrhoids?denies.?Stomach/Abdominal pain?denies.?Dark blood stool?denies.?Irritable bowel ?denies.?Constipation?denies.?Diarrhea?denies.?Hematology:?Swelling?admits.?Clots?denies.?Varicose Veins?denies.?Bruising?denies.?Bleeding problem?denies.?Genitourinary:?Blood urine?denies.?Frequent/Painfu/urination/bladder control?denies.?Kidney stones?denies.?Infection (UTI)?denies.?Nephropathy?denies.?sex trans dis (STD)?denies.?Prostate?denies.?Musculoskeletal:?Hammertoes?admits.?Bunions?denies.?Back Pain?denies.?Muscle Cramps/ Resting?denies.?Muscle cramps / walking?denies.?Generalized aches and pains?denies.?Weakness?denies.?Integ.:?Dawn?denies.?Scars?denies.?Corns/calluses?admits.?Ingrown nails?admits.?Painful nails?admits.?Open Sores?denies.?Rashes?denies.?Neurologic:?Difficulty sleeping?denies.?Brain disorder?denies.?Numbness?denies.?Balance trouble?denies.?Confusion?denies.?Fainting/blackouts?denies.?Tingling?denies.?Tr emors?denies.? * Medical History:? * Surgical History:?nasal surg sarah, deviated septum 2012knee surgery 05/2014 * Hospitalization/Major Diagno stic Procedure:?[facility]- SOB, pneumonia 06/2023 * Family History:?Mother: dece ased 64 yrs, diagnosed with Diabetic - NIDDM.?Father: , diagnosed with Diabetic - NIDDM.? * Social History:?Tobacco Use:?Tobacco Use/Smoking?Are you a:?nonsmoker ?Tobacco use other than smoking?Are you an other tobacco user??No ???Drugs/Alcohol:?Drugs?Have you used drugs other than those for medical reasons in the past 12 months??No ?Alcohol Screen?Did you have a drink containing alcohol in the past year??Yes ?Points?0 ?Interpretation?Negative ???Miscellaneous:?Caffeine: yes. ?Children: yes. ?no Exercise. ?Marital status: . ?Occupation: Disabled. * Medications:?TakingOzempic c ycloPHOSphamide 50 MG Capsule as directed Orally Ibuprofen 600 MG Tablet 1 tablet with food or milk as needed Orally Three times a dayChlorhexidine Cetirizine HCl Ambien 10 MG Tablet 1 tablet at bedtime as needed Orally Once a dayVentolin HFA 108 (90 Base) MCG/ACT Aerosol Solution 1 puff as needed Inhalation every 4 hrsPulmicort traZODone HCl Furosemide 40 MG Tablet 1 tablet Orally Once a dayLisinopril 5 MG Tablet 1 tablet Orally Once a dayamLODIPine Besylate 10 MG Tablet 1 tablet Orally Once a daymetFORMIN HCl 500 MG Tablet 1 tablet with a meal Orally Once a dayBudesonide (Inhalation) Breo Ellipta 100-25 MCG/ACT Aerosol Powder Breath Activated 1 puff Inhalation Once a dayMedication List reviewed and reconciled with the patientTaking Ozempic Taking cycloPHOSphamide 50 MG Capsule as directed Orally Taking Ibuprofen 600 MG Tablet 1 tablet with food or milk as needed Orally Three times a dayTaking Chlorhexidine Taking Cetirizine HCl Taking Ambien 10 MG Tablet 1 tablet at bedtime as needed Orally Once a dayTaking Ventolin HFA 108 (90 Base) MCG/ACT Aerosol Solution 1 puff as needed Inhalation every 4 hrsTaking Pulmicort Taking traZODone HCl Taking Furosemide 40 MG Tablet 1 tablet Orally Once a dayTaking Lisinopril 5 MG Tablet 1 tablet Orally Once a dayTaking amLODIPine Besylate 10 MG Tablet 1 tablet Orally Once a dayTaking metFORMIN HCl 500 MG Tablet 1 tablet with a meal Orally Once a dayTaking Budesonide (Inhalation) Taking Breo Ellipta 100-25 MCG/ACT Aerosol Powder Breath Activated 1 puff Inhalation Once a dayMedication List reviewed and reconciled with the patient * Allergies:?Penicillinyes[All ergies Verified] Objective: * Vitals:?Ht: 5ft 6in, Wt:355, BMI:57.29, Shoe size: 10.5, BS: 140, Ht-cm: 167.64 cm, Wt-k.03 kg. * Examination: ???Vascular: ?DP PULSES:? 0/4, B/L.?PT PULSES:? 0/4, B/L.?CAPILLARY FILL TIME:? delayed, all digits, B/L.?SKIN TEMPERTURE GRADIENT OF THE LOWER EXTERMITIES:? decreased, cool to cool, proximal to distal, B/L.?HAIR GROWTH/TEXTURE/ELASTICITY/TURGOR:? decreased, B/L.?PIGMENTATION:? brawny, B/L.?EDEMA:? 3/4, non-pitting, without aching pain, B/L, Leg(s), Ankle(s), Feet.?CLAUDICATION:?denies, B/L.?REST PAIN:?denies, B/L.?Nails: ?NAILS are:?Elongated, overgrown, dystrophic, lytic, greater than 3mm thick, discolored and friable with crumbly malodorous subungual debris, with pain on palpation, 1-5 B/L.?Dermatologic: ?SKIN FINDINGS:? Skin exam reveals Keratotic lesion(s) located at, SUB MTH (s), 1, B/L , SUB MTH (s), 5, B/L , Heel(s), B/L .?VERRUCA:?Reveals Multiple ( 4), multi-loculated , mosaic, round, raised, flat-topped, petechial bleeding papule(s), with cauliflower appearance and interruption of skin lines, with pain to lateral compression, and size estimated at 4-7mm diameter?ea, plantar Forefoot , B/L.?Orthopedic: ?MUSCLE STRENGTH:?5/5 all groups in a [...] burning, paresthesia, tingling, B/L.?Ophthalmology Referral: ?DIABETES EYE EXAM?Diabetic Retinopathy Screening:?Yes ?Findings of Diabetic Eye Exam:?no retinopathy?General Examination: ?GENERAL APPEARANCE:?Reveals a pleasant, alert, well nourished, well developed, well hydrated individual, who demonstrates proper attention to hygiene/body habitus, and is in no acute distress , Pt serves as own historian for office visit today.?ORIENTED:?person, place, and time.?FOOT EXAM:?Lower Extremity Neurological Exam performed:?Yes ?Footwear Evaluation?Footwear Evaluation performed:?Yes??? Assessment: * Assessment: 1.?Type 2 diabetes mellitus with diabetic peripheral angiopathy without gangrene - E11.51?2.?Plantar wart - B07.0 (Primary), B/L?3.?Tinea unguium - B35.1?4.?Pain in right toe(s) - M79.674?5.?Pain in left toe(s) - M79.675?6.?Right foot pain - M79.671?7.?Left foot pain - M79.672?8.?Other hammer toe(s) (acquired), right foot - M20.41, Chronic problem, Worse (4),Rx Management (4)?9.?Other hammer toe(s) (acquired), left foot - M20.42, Chronic problem, Worse (4),Rx Management (4)? Plan: * Treatment: 2.?Type 2 diabetes mellitus with diabetic peripheral angiopathy without gangrene?Procedure: 76234-ZTVT SKIN LESIONS, OVER 4 3.?Tinea unguium?Procedure: 51171-NBUHJCN NAIL, 6 OR MORE 4.?Other hammer toe(s) (acqu ired), right foot? Start Extra Depth Orthopedic Shoes, (1) Pair ., With (3) Pair Custom Heat Molded Multidensity Innersoles, Dx: NIDDM/PVD(E11.51), Hammertoe Foot Deformity(M20.41,M20.42), Preulcerative Skin Lesion(s)(L85.1), Wear, Daily, 365 days, 2, Refills 0.?? Notes: Patient Educated with: DIABETIC FOOT CARE INSTRUCTIONS.pdf (DIABETIC FOOT CARE INSTRUCTIONS.pdf)?? * Procedures:?Debride Nail 6-10:?Nail debridement?Nail debridement performed extensively to reduce/remove overall nail length, girth, thickness, subungual debris, and necrotic tissue, by manual and electrical means through the use of a nail nipper and/or dremel, to more viable healthy nail plate or bed tissue 1-5. Silver nitrate used for any petechial bleeding as necessary. Patient chooses, no pharmaceutical tx (37187).?Keratoma Treatment:?Parring or Cutting of Benign Hyperkeratotic Lesion(s)?70172 ( >4 Lesions) - The Benign hyperkeratotic lesions, as described above were pared, and/or cut utilizing a sterile #15 blade, tissue nippers, and/or dremel, Q8.?Wart Treatment:?Procedure?Verrucae were debrided to pin-point bleeding margins with sterile 15 surgical blade, silver nitrate chemocautery applied, recomm. immune-boosting meds such as zinc, recomm. follow up with topical chemosurgical agents, Pt defers any other forms of tx (74173).? * Procedure Codes:?31723 DEBRI DE NAIL, 6 OR MORE, Modifiers: XS 21696 Wart Destruction, 1-14, Modifiers: XS 74208 TRIM SKIN LESIONS, OVER 4, Modifiers: XS [...] custom heat-molded inserts was dispensed.? ??Screening/Special Tests:?Fall Risk?Assessment:?Performed ?Plan of Care:?Documented ?Screening:?No falls in the past year ?FALLS: Screening for Future Fall Risk?Have you had any falls with injury in the past year??No * Follow Up:?prn * Images: * Sign off status: Completed Addendum: * ? true * Provider:?Sanjay Lemons DPM Date:?2023 Generated [...] (s), 5, B/L , Heel(s), B/L VERRUCA: Reveals Multiple ( 4 ), multi-loculated , mosaic, round, raised, flat- topped, petechial bleeding papule(s), with cauliflower appearance and interruption of skin lines, with pain to lateral compression, and size estimated at 4-7mm diameter ea, plantar Forefoot , B/L Orthopedic FOOT MORPHOLOGY: Pes Planus stru [...] Lower Extremity Neurological Exa m performed:: Yes ORIENTED: person, place, and t anna Footwear Evaluation Footwear Evaluation performe d:: Yes Ophthalmology Referral DIABETES EYE EXAM Diabetic Retinopa thy Screening:: Yes Findings of Diabetic Eye Exam:: no retin opathy Vascular DP PULSES (B): 0/4, B/L PT PULSES (B): 0/4, B/L CAPILLARY FILL TIME: delayed, all digits , B/L TEMPERTURE GRADIENT (C): decreased, cool to cool, proximal to distal, B/L TROPHIC CONDITION-TEXTURE/ELASTICITY/TURGOR/HAIR GROWTH (B): decreased, B/L EDEMA (C): 3/4, non-pitting, wi thout aching pain, B/L, Leg(s), Ankle(s), Feet CLAUDICATION (C): denies, B/L REST PAIN: denies, B/L PIGMENTATION: brawny, B/L Nails NAILS are: Elongated, overg rown, dystrophic, lytic, greater than 3mm thick, discolored and friable with crumbly malodorous subungual debris, with pain on palpation, 1-5 B/L
[2024-09-24 11:58] VITALS: BP 101/68; PULSE 82; RESP 16; O2SAT 96; BMI 44.4
--- NOTE | 2024-09-24 12:26 | HO.ANESPROP2 ---
HPI - Anesthesia Eval Consult details Narrative: Pt cx'd self 59yo M for Right Knee Replacement Total, 10/22/24 Cardiac optimized. Recent URI with fever last week, occassional clear, productive cough No CP/SOB with walking outside, independant with all activity BMI 44.4 DM: Ozempic, 100lb weight loss. FBS ~ 100 JANN: Does not tolerate CPAP. Less symptoms with weight loss Asthma: Follows pulmo at [facility]. PFT pending. PRN albuterol last used > 2months ago Previous chronic respiratory failure requiring supplemental O2 - no longer required after weight loss. HFpEF: Follows [facility] HTN: recent decrease in BP meds by cardiology for hypotension with light headedness. Still low BP. No lightheaded. With plan to call cardiology and update. Anesthesia Pre-Procedure Meds Is the patient on any of the following meds?: GLP1/DPP4 PMFSH Active Problems Active Problems: All Active Problems Arthritis of right knee (Acute) Past Medical History Medical History (Updated 09/24/24 @ 12:19 by Mckenna Wesley RN) Arthritis Diabetes CRD (chronic renal disease) Hx of renal calculi Fatty liver Mouth breathing JANN (obstructive sleep apnea) Recent URI (~09/10/24) CTS (carpal tunnel syndrome) Environmental allergies Seasonal allergies Asthma History of edema Hx of diverticulitis of colon History of cocaine use CHF (congestive heart failure) Hx of respiratory failure (~2021) History of palpitations HLD (hyperlipidemia) HTN (hypertension) Family History Family history of problems with anesthesia: No Surgical History Surgical History (Updated 09/24/24 @ 12:15 by Mckenna Wesley RN) Hx of exploratory laparotomy Hx of colonoscopy Hx of nasal septoplasty (03/2024) History of Problems with Anesthesia: No Social History Social History (Updated 09/24/24 @ 12:20 by Mckenna Wesley RN) Household Members: Family Housing: House Are you a primary resident care associate to a significant other at home: No Do you presently have visiting nurse or other home services: No Patient Tobacco Use Status: Never used Tobacco e-Cigarette/Vaping Use: Never Used Have you been hit, kicked, punched, or otherwise hurt by someone within the past year? If so, by whom?: No Are you DNR?: No Advance Directives: No Advance Directives Information Provided: Yes Advance Directives on File: No Poor oral hygiene: No Meds Allergies Allergy/AdvReac Type Severity Reaction Status Date / Time penicillin V Allergy Unknown Unknown Verified 09/24/24 11:55 Penicillins (PENICILLINS) Allergy Unknown UNKNOWN Unverified 09/16/24 09:17 ketorolac Allergy Unknown Verified 09/20/24 11:00 Home Medications ?Medication ?Instructions ?Recorded ?Confirmed ?Last Taken ?Type amlodipine 5 mg tablet 5 mg PO DAILY 07/19/24 09/20/24 Unknown History semaglutide 2 mg/dose (8 mg/3 mL) 2 mg subcut QWEEK 09/16/24 09/20/24 Unknown History subcutaneous pen injector (Ozempic) albuterol sulfate 90 mcg/actuation 2 puff inhalation Q4H PRN wheezing 09/20/24 09/20/24 Unknown History aerosol inhaler alfuzosin 10 mg tablet,extended 10 mg PO DAILY 09/20/24 09/20/24 Unknown History release 24 hr atorvastatin 40 mg tablet 40 mg PO DAILY 09/20/24 09/20/24 Unknown History budesonide 0.5 mg/2 mL suspension 0.5 mg inhalation DAILY 09/20/24 09/20/24 Unknown History for nebulization bupropion HCl 300 mg 24 hr tablet, 300 mg PO DAILY 09/20/24 09/20/24 Unknown History extended release ergocalciferol (vitamin D2) 1,250 1,250 mcg PO QWEEK 09/20/24 09/20/24 Unknown History mcg (50,000 unit) capsule fluticasone furoate 100 1 ea inhalation DAILY 09/20/24 09/20/24 Unknown History mcg-vilanterol 25 mcg/dose inhalation powder (Breo Ellipta) fluticasone propionate 50 2 spray intranasal DAILY 09/20/24 09/20/24 Unknown History mcg/actuation nasal spray,suspension furosemide 40 mg tablet 40 mg PO DAILY 09/20/24 09/20/24 Unknown History lisinopril 10 mg tablet 10 mg PO DAILY 09/20/24 09/20/24 Unknown History metformin 500 mg tablet 500 mg PO DAILY 09/20/24 09/20/24 Unknown History acetaminophen 500 mg capsule 1,000 mg PO Q6H PRN Pain 09/24/24 09/24/24 Unknown History ibuprofen 200 mg tablet 400 mg PO Q8H PRN Pain 09/24/24 09/24/24 Unknown History trazodone 50 mg tablet 50 mg PO BEDTIME 09/24/24 09/24/24 Unknown History Exam Height,Weight and Vital Signs: Height 5 ft 6 in Weight 124.738 kg Last Vital Signs Pulse 82 09/24/24 11:58 Resp 16 09/24/24 11:58 BP 101/68 09/24/24 11:58 Pulse Ox 96 09/24/24 11:58 O2 Del Method Room Air 09/24/24 11:58 Pertinent Lab Results Pertinent Lab Results: CBC and BMP 08/2024 from outside facility all WNL except elevated BUN/Creat @ 27/1.48 (known CKD) Narrative Narrative: EKG 08/2024 SR with occ PVC Low volt QRS ECHO 03/2023 Technically limited study in spite of Definity. But clearly LV systolic function is vigorous. Difficult to assess diastolic function. Mild concentric LVH. LVEF 60-65%. RV size and function appear to be nml. Both atria appear nml. No significant valvular abnormalities noted. No significant change from 07/2021. Airway Mallampati Class: II TM Dist: >3cm Neck ROM: Full Loose/Missing/Broken Teeth: Yes (left molar extracted, ) Heart: RRR Lungs: wheezes throughout - encouraged albuterol use Assessment and Plan Assessment Anesthesia Assessment: Anesthesia Plan Discussed and PAT Visit Final Anesthetic Review Family History of Problems with Anesthesia: No History of Problems with Anesthesia: No
[2024-09-24 14:04] LABS: MRSA Nasal PCR NEGATIVE (Negative); SA Nasal PCR POSITIVE (Negative)
--- OUTSIDE RECORDS SUMMARY | 2024-10-29 08:13 | XMS_ITS | Patient Health Record ---
[facility] Address [address] [place] [address] Care Team Providers Care Mine Manager Name Role Phone Hanna RANGEL, Mckinley Primary Care Provider Unavailab Sanjay Garsia Unavailable [phone] Allergies Allergen (clinical drug ingredient) Drug/Non Drug [...] Foot Deformity(M20.41,M20.42) , Preulcerative Skin Lesion(s)(L85.1) Wear Daily; Duration: 365 days Active Ibuprofen 600 MG 1 tablet with food o r milk as needed Orally Three times a day Active Furosemide 40 MG 1 tablet Orally Once a day; Duration: 30 day(s) Active metFORMIN HCl 500 MG 1 tablet with a melany l Orally Once a day; Duration: 30 day(s) Active Lisinopril 5 MG 1 tablet Orally Once a day; Duration: 30 day(s) Active amLODIPine Besylate 10 MG 1 tablet Orall y Once a day; Duration: 30 day(s) Active Pulmicort Active Ambien 10 [...] Problem Acquired hammer toe of right foot (59202781185371 05) Other hammer toe(s) (acquired), right foot (M20.41) Active confirmed Problem Type 2 diabetes mellitus with peripheral angiopathy (320307395) Type 2 diabetes mellitus with diabetic peripheral angiopathy without gangrene (E11.51) Active confirmed Problem Acquired hammer toe of left foot (77794015727089 03) Other hammer toe(s) (acquired), left foot (M20.42) Active confirmed Problem Plantar wart (16650949) Plantar wart (B07.0) Active confirmed Vital Signs Weight 313 lbs 01/15/2024 BMI 50.51 kg/m2 01/15/2024 Procedures Procedure Date Ordered Date Performed Result Body Sit e [id number]-[id number] NAIL, 6 OR MORE 01/15/2024 N/A 76079-ZMYC SKIN LESIONS, OVER 4 01/15/2024 N/A Encounters Encounter Location Date Provider Diagnosis [facility] [address] [address] 01/15/2024 Sanjay Lemons Type 2 diabetes mellitus [...] Treatment Pending Test Test Name Order Date [id number] NAIL, 6 OR MORE 05/05/2022 10960-RIHDIRP NAIL, 6 OR MORE 11/03/2022 99382-UFSOBBU NAIL, 6 OR MORE 08/09/2023 19545-[id number] NAIL, 6 OR MORE 01/15/2024 59031-Suuj Destruction, 1-14 08/09/2023 22676-Vkvz Destruction, 1-14 11/03/2022 90115-KCDR SKIN LESIONS, OVER 4 08/09/19 24 33179-UXXV SKIN LESIONS, OVER 4 01/15/20 24 14576-LTOZ SKIN LESIONS, OVER 4 11/04/19 23 96695-IXMQ SKIN LESIONS, OVER 4 05/05/19 23 Insurance Providers Payer Name Payer Address Payer Phone Subscriber Number Group Number Insured Name Patient Relationship to Insured Coverage Start Date Coverage End Date [facility] [employer] Claims [address] [place] [id number] Kenny Faust Self - patient is the [...]
--- OUTSIDE RECORDS SUMMARY | 2024-10-29 08:13 | XMS_ITS | Clinical Summary ---
Author Organization [facility] Address [address] [place] [address] Phone Care Team Providers Care Blind Eyeletter Name Role Phone Mckinley Ferreira MD Primary Care Provider [phone] Allergies Active Allergy Reactions Criticality Noted Date [...] twice a day Active lancets 30 gauge misc Use one lancet to check blood sugar twice a day Active medical supply, miscellaneous (MISCELLANEOUS MEDICAL SUPPLY [facility] [place] BLOOD GLUCOSE MONITORING SUPPL (FREESTYLE LITE) Use to check blood sugar twice a day 022 Active sodium chloride-aloe vera ([place] Saline) gel topical gel 0.5 Inches by Nasal route as needed for Other (for nasal dryness). 024 Active medical supply, miscellaneous (MISCELLANEOUS MEDICAL SUPPLY [facility] [place] ELASTIC BANDAGES & SUPPORTS (ABDOMINAL BINDER/ELASTIC 2XL) [facility] [place] 1 Units by Does not apply route continuous. 020 Active ibuprofen (ADVIL,MOTRIN) 600 mg tablet 1 tablet with food or milk as needed Orally Three times a day Active cyanocobalamin (VIT B-12) 1,000 mcg tablet [...] with breakfast. 90 tablet 1 025 Active albuterol HFA (PROAIR HFA ; PROVENTIL HFA ; VENTOLIN HFA) 90 mcg/actuation inhaler Inhale 2 Puffs into the lungs every 4 hours as needed for Cough or Wheezing. 6.7 g 1 025 Active budesonide (PULMICORT) 0.5 mg/2 mL nebulizer solution Take 2 mL (0.5 mg total) by nebulization 1 (one) time each day. 025 Active lisinopriL (PRINIVIL,ZESTRI L) 10 mg tablet TAKE 1 TABLET BY MOUTH DAILY 90 tablet 1 025 Active ergocalciferol (VITAMIN D-2) 1,250 mcg (50,000 unit) capsule Take 1 capsule (50,000 Units total) by mouth 1 (one) time per week. 025 Active furosemide (LASIX) 40 mg tablet TAKE 1 TABLET(40 MG) BY MOUTH 1 TIME EACH DAY 90 tablet 1 025 Active amLODIPine (NORVASC) 5 mg tabletIndication s:Primary hypertension Take 1 tablet (5 mg total) by mouth 1 (one) time each day. 90 each 1 025 Active Ozempic 2 mg/dose (8 mg/3 mL) injection penIndications:T ype 2 diabetes mellitus without complication, without long-term current use of insulin ([facility] V24, CMS/[facility] V28) INJECT 2 MG UNDER THE SKIN EVERY 7 DAYS 3 mL 5 025 Active atorvastatin (LIPITOR) 40 mg tablet TAKE 1 TABLET(40 MG) BY MOUTH 1 TIME EACH DAY 90 tablet 025 Active atorvastatin (LIPITOR) 40 mg tablet Take 1 tablet (40 mg total) by mouth 1 (one) time each day. 90 tablet 025 2024 Discontinued semaglutide (Ozempic) 2 mg/dose (8 mg/3 mL) injection penIndications:T ype 2 diabetes mellitus without complication, without long-term current use of insulin ([facility] V24, CMS/[facility] V28) Inject 2 mg under the skin every 7 (seven) days. 3 mL 1 025 2024 Discontinued Hospital, Clinic, or Other Facility Administered Medication Ordered Dose Route Frequency Start Date End Date Status lidocaine (XYLOCAINE) 1 % injection 4 mLIndications:Primary osteoarthritis of both knees 4 mL inj Once PRN Procedure 10/03/2024 10/03/2024 Ended methylPREDNISolone acetate (DEPO-Medrol) injection 80 mgIndications:Primary osteoarthritis of both knees 80 mg IAtc Once PRN Procedure 10/03/2024 10/03/2024 Ended lidocaine (XYLOCAINE) 1 % injection 4 mLIndications:Primary osteoarthritis of both knees 4 mL inj Once PRN Procedure 10/17/2024 10/17/2024 Ended methylPREDNISolone acetate (DEPO-Medrol) injection 80 mgIndications:Primary osteoarthritis of both knees 80 mg IAtc Once PRN Procedure 10/17/2024 10/17/2024 Ended Active Problems Problem Noted Date Diagnosed Date Lightheadedness 09/13/2024 Assessment & Plan (09/13/2024 12:03 PM EDT): As above; he is not orthostatic on exam today but blood pressures are low normal and he may benefit from increased blood pressure support. Hypoglycemia should also be considered and he will continue to monitor his blood sugars at home and follow- up with his PCP as recommended. Lastly, he was strongly encouraged to improve his hydration as this may help his symptoms as well; he verbalizes understanding of this and will make an increased effort. Class 3 severe obesity due t o excess calories with serious comorbidity and body mass index (BMI) of 45.0 to 49.9 in adult ([facility] V24, [facility] V28) 02/08/2024 Assessment & Plan (09/13/2024 12:03 PM EDT): Patient is morbidly obese but is doing very well with weight loss and has already lost approximately 110 pounds. He was congratulated on his accomplishment. Approaches towards weight loss are discussed, including burning more calories than one takes in by portion control and regular exercise with an emphasis on duration rather than intensity. Palpitations 09/07/2023 Overview (02/08/2024): Last Assessment & [...] pursue outpatient cardiac monitoring. Peripheral edema 02/17/2023 Assessment & Plan (09/13/2024 12:03 PM EDT): Conservative measures were encouraged including use of compression stockings, elevation, and low-sodium diet in addition to continuation of daily furosemide. He is aware to call the office for any worsening edema. Shortness of breath 02/17/2023 Chronic heart failure with p reserved ejection fraction ([facility] V24, [facility] V28) 12/02/2021 Overview (02/08/2024): Last Assessment & [...] make any other changes at this time. Assessment & Plan (09/13/2024 12:03 PM EDT): The patient has lost a significant amount of weight (110 pounds) since he was last seen approximately 1 year ago and appears to be doing very well; he is no longer requiring supplemental oxygen for his chronic hypoxic respiratory failure. He is staying active on a regular basis and offers no exertional symptoms to cause concern for overt heart failure; he only has very mild peripheral edema on exam today and otherwise appears euvolemic. Continue furosemide. Continued efforts towards weight loss were encouraged as this will only continue to improve his overall health. We discussed risk reduction through lifestyle modifications including healthy diet, routine exercise, and weight management. We reviewed heart failure management including low-sodium diet, symptom surveillance, daily weights, and medication compliance. Could consider starting an SGLT2 inhibitor; however, he has been experiencing episodes of lightheadedness recently and I do not want to cloud the picture by adding another medication that could potentially contribute to hypoglycemia should this be the underlying problem. As below, we are readjusting his antihypertensive regimen; should this improve his symptoms when we speak in another 2 weeks, could consider the addition of Jardiance or Farxiga with close follow-up with his PCP regarding his diabetes. I've asked the patient to call if they develop worsening symptoms of heart failure such as increased shortness of breath, new or worsening cough, increased swelling in the legs or ankles, or weight gain of more than 2 pounds in one day or 4 pounds in one week. Orders: ECG 12 lead Fatty liver disease, nonalcoholic 12/02/2021 Chronic pain of both knees 11/23/2021 Chronic respiratory failure (CMS/HCC V24, CMS/HC C V28) 08/31/2021 Overview (02/08/2024): Last Assessment [...] 09/04/2017 Obstructive sleep apnea 02/13/2017 Overview (02/08/2024): [facility] Home Polysomnogram: Date 02/13/2017; AHI 63, Unclassified apneas 0; Obstructive apneas 1; Central apneas 0; Mixed apneas 0; hypopneas 124; average oxygen saturation 94% (lowest 84% without saturations <88% for 5% or more of study) Last Assessment & Plan: The patient reports continued compliance with BiPAP. Continue current plan. Assessment & Plan (09/13/2024 12:03 PM EDT): I have asked the patient to follow-up with his sleep medicine provider as he is no longer wearing his CPAP; it is unclear if this is still necessary given his recent weight loss. Uncomplicated asthma 06/08/2016 Overview (02/08/2024): Last Assessment & Plan: Continue using Breo/Ellipta 1 puff once a day 100 mcg Continue with albuterol as needed Type 2 diabetes mellitus wit hout complication ([facility] V24, [facility] V28) 12/05/2014 Overview (02/08/2024): Last Assessment & [...] continue to address once results are reviewed. Assessment & Plan (09/13/2024 12:03 PM EDT): LDL goal for this patient was a history of diabetes is less than 70; his most recent lipid panel was completed on 06/26/2024 revealing an LDL of 63 which is at goal. Continue atorvastatin. GERD (gastroesophageal reflux disease) 4 Primary hypertension 08/15/2012 Overview (02/08/2024): Last Assessment & Plan: Blood pressure is well-controlled on current medical therapies; continue amlodipine, furosemide, and lisinopril without change. We will update metabolic panel today. Assessment & Plan (09/13/2024 12:07 PM EDT): While he is not orthostatic, his initial blood pressure reading of 104/70 is low normal and may be contributing to his episodes of lightheadedness. Given his recent weight loss, it appears to be reasonable to cut back on his antihypertensive regimen to see if this allows for any improvement; he is very thankful for this. He is aware to continue lisinopril and furosemide at current dosing. He does have access to blood pressure cuff at home and will monitor his blood pressure readings 1 to 2 hours after morning medications relaying these readings to us in approximately 2 weeks at which time we can make further adjustments as indicated. His most recent metabolic panel completed earlier this month shows a creatinine of 1.48 which is actually improved from previous readings and in line with those from approximately 1 year ago; he will continue to follow with nephrology as recommended. Orders: amLODIPine (NORVASC) 5 mg tablet; Take 1 tablet (5 mg total) by mouth 1 (one) time each day. Insomnia 03/09/2012 Overview (02/08/2024): Trazodone and ambien from previous pcp Encounters Date Type Department Care Team Description 10/24/2024 3:30 PM EDT Evaluation [facility] [address] [facility] [address] [place] [address] Dameon Bass, PT Primary osteoarthritis of both knees 10/21/2024 Telephone Internal Medicine - [address] [phone] Mckinley Ferreira MD Ear Fullness 10/17/2024 1:00 PM EDT Office Visit Orthopedics [address] [phone] Bassam Aranda PA Primary osteoarthritis of both knees (Primary Dx) 10/15/2024 2:00 PM EDT Office Visit Internal Medicine - [address] [phone] Marco Cao MD Blood pressure lower than prior measurement (Primary Dx); Ear fullness, left 10/15/2024 Telephone Internal Medicine - [address] [phone] Mckinley Ferreira MD Referral 10/03/2024 3:15 PM EDT Office Visit Orthopedics [address] [phone] Bassam Aranda PA Primary osteoarthritis of both knees (Primary Dx) 09/24/2024 11:00 AM EDT Office Visit Pulmonolgy - [place] [address] [facility] [address] [place] [address] Helen Palumbo NP Preop pulmonary/respiratory exam (Primary Dx); Shortness of breath; Mucopurulent chronic bronchitis (CMS/HCC V24, CMS/HCC V28) 09/24/2024 Telephone [facility] [address] [place] [address] Mckinley Ferreira MD 09/17/2024 10:00 AM EDT Consult Orthopedic Surgery - [place] [address] [place] [phone] Tereza Burton PA Bilateral carpal tunnel syndrome (Primary Dx); Hand numbness 09/13/2024 9:40 AM EDT Consult [facility] [address] [place] [phone] Fidelina Lau NP Chronic heart failure with preserved ejection fraction ([facility] V24, [facility] V28) (Primary Dx); Peripheral edema; Primary hypertension; Lightheadedness; Class 3 severe obesity due to excess calories with serious comorbidity and body mass index (BMI) of 45.0 to 49.9 in adult ([facility] V24, [facility] V28); Type 2 diabetes mellitus without complication, without long-term current use of insulin ([facility] V24, [facility] V28); Obstructive sleep apnea; Preoperative cardiovascular examination 08/26/2024 10:00 AM EDT [facility] [place] [phone] Mckinley Ferreira MD Morbid obesity with BMI of 50.0-59.9, adult ([facility] V24, [facility] V28) (Primary Dx); Pre-op exam; Hand numbness; Type 2 diabetes mellitus without complication, with long-term current use of insulin ([facility] V24, [facility] V28); Primary hypertension; Chronic pain of right knee 08/13/2024 2:45 PM EDT Office Visit Orthopedics - [address] [phone] Bassam Aranda PA Primary osteoarthritis of both knees (Primary Dx) 08/09/2024 Telephone Endocrinology - [address] [phone] Aggie Rush MD Med Refill from Last 3 Months Immunizations Name Administration [...] Date Site/Laterality Comments NOSE SURGERY 05/01/2012 PROCEDURE: [place] UNLISTED PROCEDURE NOSE; COMMENT: Frederick. left deviated septum KNEE SURGERY Right PROCEDURE: HISTORICAL KNEE SURGERY; COMMENT: Dr Russo, medial meniscus? OTHER SURGICAL HISTORY PROCEDURE: [place] UNLISTED PX [facility] Medical History Medical History Date Comments Type 2 diabetes mellitus wit hout complication ([facility] V24, [facility] V28) 12/05/2014 DX:Type 2 diabetes mellitus without complication ([facility]) Diverticulitis of large inte мария with bleeding 09/04/2017 DX:Diverticulitis of large i ntestine with bleeding GERD (gastroesophageal reflux disease) 4 DX:GERD (gastroesophageal reflux disease) HTN (hypertension) 08/15/2012 DX:HTN (hyper tension) Insomnia 03/09/2012 DX:Insomnia; COM MENT: Trazodone and ambien from previous pcp Obesity 04/18/2014 DX:Obesity Obstructive sleep apnea 02/13/2017 DX:Obstr uctive sleep apnea; COMMENT: [facility] Home Polysomnogram: Date 02/13/2017; AHI 63, Unclassified apneas 0; Obstructive apneas 1; Central apneas 0; Mixed apneas 0; hypopneas 124; average oxygen saturation 94% (lowest 84% without saturations <88% for 5% or more of study) Uncomplicated asthma 06/08/2016 DX:Uncompli cated asthma Family History Medical History Relation Name Comments Heart failure Mother Relation Name Status Comments Brother Alive x2, healthy Father unknown Mother (Age 64) [place], diabet ic, smoker, HTN Sister 1 Alive [...] Sign Reading Time Taken Comments Blood Pressure 83/56 10/15/2024 1:51 PM EDT Pulse 69 10/15/2024 1:51 PM EDT Temperature 36.9 C (98.5 F) 09/24/2024 10:57 AM EDT Respiratory Rate 20 09/24/2024 10:57 AM EDT Oxygen Saturation 96% 09/24/2024 10:57 AM EDT Inhaled Oxygen Concentration - - Weight 126 kg (277 lb) 10/17/2024 12:58 PM EDT Height 167.6 cm (5' 5.98 ) 10/17/2024 12:58 PM E DT Body Mass Index 44.73 10/17/2024 12:58 PM EDT Plan of Treatment Upcoming Encounters Date Type Department Care Team (Late st Contact Info) Description 10/29/2024 10:30 AM EDT Office Visit Internal Medicine - [facility] [address] [place] [address] Mckinley Ferreira MD [address] [place] [address] 11/25/2024 3:00 PM EDT Evaluation [facility] Outpatient [address] [phone] Taj Ramos, OFE 11/27/2024 3:00 PM EDT Evaluation [address] [phone] Tja Ramos, SHINGLE TRIMMER 12/02/2024 3:00 PM EDT Evaluation [address] [phone] Taj Ramos, SHINGLE TRIMMER 12/04/2024 3:00 PM EDT Evaluation [address] [phone] Taj Ramos, SHINGLE TRIMMER 12/09/2024 3:00 PM EDT Evaluation [address] [phone] Taj Ramos, SHINGLE TRIMMER 12/11/2024 3:00 PM EDT Evaluation [address] [phone] Taj Ramos, SHINGLE TRIMMER 12/16/2024 3:00 PM EDT Evaluation [address] [phone] Taj Ramos, SHINGLE TRIMMER 12/18/2024 10:45 AM EDT Office Visit Orthopedics [address] [phone] Bassam Aranda PA [address] [place] [address] 12/18/2024 3:00 PM EDT Evaluation [address] [phone] Dameon Bass, PT 01/13/2025 1:00 PM EDT Office Visit Endocrinology - [address] [phone] Aggie Rush MD [address] [place] [phone] 03/28/2025 11:50 AM EST Office Visit Pulmonolgy - [place] [address] [facility] [address] [place] [address] Helen Palumbo NP [address] [place] [address] Health Maintenance Due Date Last Done Comments COVID-19 Vaccine (#1) 1970 Diabetes: Annual Foot Exam 09/09/1975 Hepatitis A Vaccines (1 of 2 - Risk 2-dose series) 1984 Hepatitis B Vaccines (1 of 3 - 19+ 3-dose series) 1984 Zoster Vaccines (1 of 2) 1984 Pneumococcal Vaccine: 50+ Years (2 of 2 - PCV) 02/26/2003 02/26/2002 Pneumococcal Vaccine: Pediatrics (0 to 5 Years) and At-Risk Patients (6 to 64 Years) (2 of 2 - PCV) 02/26/2003 02/26/2002 Depression Screening 04/09/2022 12/16/2016 HIV Screening 04/09/2022 Medicare Annual Wellness Visit 04/09/2022 Social Influencers of Health Screening 04/09/2022 DTaP,Tdap,and Td Vaccines (2 - Td or Tdap) 09/11/2024 09/11/2014 Influenza Vaccine (Season Ended) 2024 02/20/2023, 03/20/2022, 03/20/2022, Additional history exists Diabetes: Blood Sugar Control Test (HGBA1C) 03/09/2025 09/06/2024, 06/26/2024, 11/14/2023, Additional history exists Diabetes: Annual Retina Eye Exam 04/16/2025 04/16/2024 Diabetes: Annual Urine Albumin-Creatinine Ratio (uACR) 09/06/2025 09/06/2024, 06/26/2024, 02/21/2024, Additional history exists Diabetes: Annual GFR (Glomerular Filtration Rate) 09/06/2025 09/06/2024, 06/26/2024, 12/18/2023, Additional history exists Hypertension/CHF/CAD Annual BMP Blood Test 09/06/2025 09/06/2024, 06/26/2024, 12/18/2023, Additional history exists Colorectal Cancer Screening: Colonoscopy 03/21/2029 03/21/2024, 03/21/2018 Cholesterol Screening (Lipid Panel) 06/26/2029 06/26/2024, 12/12/2023, 12/12/2023, Additional history exists RSV Immunization Adult Patients (1 - 1-dose 75+ series) 2040 Hepatitis C Screening Completed 09/17/2015 HIB Vaccines [...] on patient's age to complete this topic Goals Goal Patient Goal Type Associated Problems Recent Progress Patient-Stated? Author PT LTGs General No Dameon Bass, PT Note: Pt will ambulate x6 minutes without Left knee pain Pt will ambulate x6 minutes without right knee pain Pt will ascend/descend 12 steps with reciprocal pattern and no knee pain, B Pt will be independent with HEP Procedures Procedure Name Priority Date/Time Associated Diagnosis Comments NC ARTHROCENTESIS/ASPIR ATION/INJECTION MAJOR JOINT/BURSA W/O U/S GUIDANCE Routine 10/17/2024 1:00 PM EDT Primary osteoarthritis of both knees NC ARTHROCENTESIS/ASPIR ATION/INJECTION MAJOR JOINT/BURSA W/O U/S GUIDANCE Routine 10/03/2024 3:15 PM EDT Primary osteoarthritis of both knees ECG 12-LEAD Routine 09/13/2024 12:03 PM EDT Chronic heart failure with preserved ejection fraction (CMS/HCC V24, CMS/HCC V28) CBC WITH AUTO DIFFERENTIAL Routine 09/06/2024 10:03 AM EDT Preoperative examination MICROALBUMIN CREATININE URINE RATIO Routine 09/06/2024 10:03 AM EDT Diabetes mellitus (CMS/HCC V24, CMS/HCC V28) CBC AND DIFFERENTIAL Routine 09/06/2024 10:03 AM EDT Preoperative examination HEMOGLOBIN A1C Routine 09/06/2024 10:03 AM EDT Preoperative examination BASIC METABOLIC PANEL Routine 09/06/2024 10:03 AM EDT Preoperative examination ECG Routine 08/26/2024 3:55 PM EDT ECG 12-LEAD Routine 08/26/2024 11:36 AM EDT Pre-op exam LIPID PANEL WITH REFLEX TO DIRECT LDL Routine 06/26/2024 10:43 AM EST Type 2 diabetes mellitus without complication, with long-term current use of insulin (CMS/HCC V24, CMS/HCC V28) EXTERNAL DIABETIC RETINA EYE EXAM 04/16/2024 COLONOSCOPY Routine 03/21/2024 10:42 AM EST Hx of colonic polyps HM DEPRESSION SCREENING Routine 12/16/2016 HEPATITIS C SCREENING Routine 09/17/2015 from Last 3 Months or Most Recently Relevant to Health Maintenance Results * NC ARTHROCENTESIS/ASPIRATION/INJECTION MAJOR JOINT/BURSA W/O U/S GUIDANCE (10/17/2024 1:00 PM EDT) Bassam Carson PA - 10/17/2024 1:00 PM EDT CORKY Willard 10/17/2024 1:20 PM L Inj/Asp: R knee Indications: pain Details: 22 G needle, anterolateral approach Medications: 4 mL lidocaine 1 %; 80 mg methylPREDNISolone acetate 80 mg/mL Outcome: tolerated well, no immediate complications Informed Consent: Site: Knee Laterality: Right Relevant images/test results available and reviewed: yes Health status cleared: Yes Procedure/treatment, purpose, treatment alternatives, risks/potential complications and benefits explained: yes Risk/complications/benefits details: Risks include but are not limited to: The treatment may not accomplish the desired results. Additionally bleeding, infection, damage to tendon, nerve, cartilage, muscle; thinning or lightening of the skin in the area of injection; flushing or redness of the face, elevated blood pressure or blood sugar, allergic reaction, rash, increased pain Benefits include relief of inflammation and pain Patient questions answered: yes Patient agrees, verbalizes understanding, and wants to proceed: yes Consent given by: Patient Informed consent discussion completed by Physician/ANGELES with patient: Verbal Pre-procedure timeout performed: yes Bassma FRIED IN CLINIC/BEDSIDE ORDERABLES Fin al Result * NC ARTHROCENTESIS/ASPIRATION/INJECTION MAJOR JOINT/BURSA W/O U/S GUIDANCE (10/03/2024 3:15 PM EDT) Bassam Carson PA - 10/03/2024 3:15 PM EDT CORKY Willard 10/03/2024 3:18 PM L Inj/Asp: L knee Indications: pain Details: 22 G needle, anterolateral approach Medications: 4 mL lidocaine 1 %; 80 mg methylPREDNISolone acetate 80 mg/mL Informed Consent: Site: Knee Laterality: Left Relevant images/test results available and reviewed: yes Health status cleared: Yes Procedure/treatment, purpose, treatment alternatives, risks/potential complications and benefits explained: yes Risk/complications/benefits details: Risks include but are not limited to: The treatment may not accomplish the desired results. Additionally bleeding, infection, damage to tendon, nerve, cartilage, muscle; thinning or lightening of the skin in the area of injection; flushing or redness of the face, elevated blood pressure or blood sugar, allergic reaction, rash, increased pain Benefits include relief of inflammation and pain Patient questions answered: yes Patient agrees, verbalizes understanding, and wants to proceed: yes Consent given by: Patient Informed consent discussion completed by Physician/ANGELES with patient: Verbal Pre-procedure timeout performed: yes us Bassam FRIED IN CLINIC/BEDSIDE ORDERABLES Fin al Result * ECG 12 lead (09/13/2024 12:03 PM EDT) Only the most recent of2 resultswithin the time period is included. Ventricular Rate ECG 86 BPM GEMUSE Atrial Rate 86 BPM GEMUSE P-R Interval 170 ms GEMUSE QRS Duration 82 ms GEMUSE Q-T Interval 352 ms GEMUSE QTc 421 ms GEMUSE P [place] 39 degrees GEMUSE R [place] 3 degrees GEMUSE T [place] -2 degrees GEMUSE ECG Interpretation Sinus rhythm with occasional Premature ventricular complexes Low voltage QRS Borderline ECG When compared with ECG of 16-AUG-2023 11:47, Premature ventricular complexes are now Present Questionable change in QRS axis Confirmed by Saulo MARTINEZ JAY ([id number]) on 09/17/2024 8:55:49 AM GEMUSE 09/13/2024 9:41 AM EDT 09/17/2024 8:55 AM EDT Fidelina Lau SKEIN STRAIGHTENER ECG ORDERABLES Edite d Result - Final GEMUSE * (ABNORMAL) CBC auto differential (09/06/2024 10:03 AM EDT) Pathologist [facility] WBC 7.4 4.8 - 10.8 K/mcL LAB HEMETOLOGY METHOD 09/06/2024 11:41 AM EDT [facility] RBC 4.90 4.50 - 5.50 [facility] [facility] HEMETOLOGY METHOD 09/06/2024 11:41 AM EDT [facility] Hemoglobin 13.6 13.5 - 17.5 g/dL LAB HEMETOLOGY METHOD 09/06/2024 11:41 AM EDT [facility] LAB Hematocrit 43.0 42.0 - 54.0 % LAB HEMETOLOGY METHOD 09/06/2024 11:41 AM EDT [facility] MCV 87.0 79.0 - 98.0 FL LAB HEMETOLOGY METHOD 09/06/2024 11:41 AM EDT [facility] LAB MCH 27.5 27.0 - 32.0 pcg LAB HEMETOLOGY METHOD 09/06/2024 11:41 AM [facility] LAB MCHC 31.6(L) 32.0 - 37.0 g/dL LAB HEMETOLOGY METHOD 09/06/2024 11:41 AM [facility] LAB RDW 14.9 11.0 - 15.0 % LAB HEMETOLOGY METHOD 09/06/2024 11:41 AM [facility] LAB Platelets 285 130 - 400 K/mcL LAB HEMETOLOGY METHOD 09/06/2024 11:41 AM [facility] LAB MPV 10.2 7.0 - 11.0 FL LAB HEMETOLOGY METHOD 09/06/2024 11:41 AM [facility] LAB NRBC 0.0 <1.0 % LAB HEMETOLOGY METHOD 09/06/2024 11:41 AM [facility] LAB NRBC Absolute 0.00 <0.10 K/mcL LAB HEMETOLOGY METHOD 09/06/2024 11:41 AM [facility] LAB Neutrophils Relative 64.9 % LAB HEMETOLOGY METHOD 09/06/2024 11:41 AM [facility] LAB Lymphocytes Relative 25.8 % LAB HEMETOLOGY METHOD 09/06/2024 11:41 AM [facility] Monocytes Relative 6.9 % LAB HEMETOLOGY METHOD 09/06/2024 11:41 AM [facility] Eosinophils Relative 1.4 % LAB HEMETOLOGY METHOD 09/06/2024 11:41 AM [facility] Basophils Relative 0.7 % LAB HEMETOLOGY METHOD 09/06/2024 11:41 AM [facility] LAB Immature Granulocytes Relative 0.3 % LAB HEMETOLOGY METHOD 09/06/2024 11:41 AM [facility] LAB Neutrophils Absolute 4.80 1.50 - 7.00 K/mcL LAB HEMETOLOGY METHOD 09/06/2024 11:41 AM EDT [facility] LAB Lymphocytes Absolute 1.91 1.00 - 5.00 K/[facility] LAB HEMETOLOGY METHOD 09/06/2024 11:41 AM EDT [facility] LAB Monocytes Absolute 0.51 0.20 - 1.00 K/[facility] LAB HEMETOLOGY METHOD 09/06/2024 11:41 AM EDT [facility] LAB Eosinophils Absolute 0.10 0.00 - 0.50 K/[facility] LAB HEMETOLOGY METHOD 09/06/2024 11:41 AM EDT [facility] LAB Basophils Absolute 0.05 0.00 - 0.20 K/[facility] LAB HEMETOLOGY METHOD 09/06/2024 11:41 AM [facility] LAB Immature Granulocytes Absolute 0.02 0.00 - 0.03 K/[facility] LAB HEMETOLOGY METHOD 09/06/2024 11:41 AM T [facility] Blood Venous blood specimen / Unknown Venipuncture / Unknown 09/06/2024 10:03 AM EDT 09/06/2024 10:03 AM EDT us Mckinley Ferreira MD LAB BLOOD ORDERABLES Final Res ult [facility] [address] [place] [address], * Microalbumin creatinine urine ratio (09/06/2024 10:03 AM EDT) Creatinine, Urine 134.0 mg/dL LAB CHEMISTRY METHOD 09/06/2024 1:49 PM EDT [facility] LAB Microalb, Ur 18.3 0.0 - 29.0 mg/L LAB CHEMISTRY METHOD 09/06/2024 1:49 PM EDT [facility] LAB Microalb/Creat Ratio 14 <30 mg/g creat LAB CHEMISTRY METHOD 09/06/2024 1:49 PM EDT [facility] Urine Urine specimen obtained by clean catch procedure / Unknown Non-blood Collection / Unknown 09/06/2024 10:03 AM EDT 09/06/2024 10:03 AM EDT us Mckinley Ferreira MD LAB URINE ORDERABLES Final Res ult Performing Organization Address [facility]/ZIP Co de Phone Number [facility] [address] [place] [address], [place] [phone] * Hemoglobin A1c (09/06/2024 10:03 AM EDT) Hemoglobin A1C 6.2 <6.5 % LAB CHEMISTRY METHOD 09/06/2024 1:43 PM EDT [facility] Mean Bld Glu Estim. 131 mg/dL LAB CHEMISTRY METHOD 09/06/2024 1:43 PM EDT [facility] Blood Venous blood specimen / Unknown Venipuncture / Unknown 09/06/2024 10:03 AM EDT 09/06/2024 10:03 AM EDT us Mckinley Ferreira MD LAB BLOOD ORDERABLES Final Res ult Performing Organization Address [facility]/ZIP Co de Phone Number [facility] [address] [place] [address], [place] [phone] * (ABNORMAL) Basic metabolic panel (09/06/2024 10:03 AM EDT) Sodium 140 133 - 145 mmol/L LAB CHEMISTRY METHOD 09/06/2024 2:23 PM EDT [facility] Potassium 4.6 3.5 - 5.5 mmol/L LAB CHEMISTRY METHOD 09/06/2024 2:23 PM EDT [facility] Chloride 109 96 - 110 mmol/L LAB CHEMISTRY METHOD 09/06/2024 2:23 PM EDT [facility] CO2 25 21 - 32 mmol/L LAB CHEMISTRY METHOD 09/06/2024 2:23 PM T [facility] Anion Gap 6 3 - 11 LAB CHEMISTRY METHOD 09/06/2024 2:23 PM [facility] Glucose 88 70 - 100 mg/dL LAB CHEMISTRY METHOD 09/06/2024 2:23 PM [facility] BUN 27(H) 5 - 25 mg/dL LAB CHEMISTRY METHOD 09/06/2024 2:23 PM [facility] Creatinine 1.48(H) 0.70 - 1.30 mg/dL LAB CHEMISTRY METHOD 09/06/2024 2:23 PM [facility] LAB eGFR 55(L) >=60 mL/min/1. 73m2 LAB CHEMISTRY METHOD 09/06/2024 2:23 PM T [facility] LAB Comment:Calculation based on the Chronic Kidney Disease Epidemiology Collaboration (CKD-EPI) equation refit without adjustment for race. BUN/Creatinine Ratio 18.2 LAB CHEMISTRY METHOD 09/06/2024 2:23 PM [facility] Calcium 9.3 8.5 - 10.5 mg/dL LAB CHEMISTRY METHOD 09/06/2024 2:23 PM [facility] Blood Venous blood specimen / Unknown Venipuncture / Unknown 09/06/2024 10:03 AM EDT 09/06/2024 10:03 AM EDT us Mckinley Ferreira MD LAB BLOOD ORDERABLES Final Res ult [facility] [address] [place] [address], * ECG (08/26/2024 3:55 PM EDT) Historical Provider ECG ORDERABLES Final Res ult * Lipid panel with reflex to direct LDL (06/26/2024 10:43 AM EST) Cholesterol 128 0 - 200 mg/dL LAB CHEMISTRY METHOD 06/26/2024 3:03 PM [facility] Triglycerides 64 0 - 150 mg/dL LAB CHEMISTRY METHOD 06/26/2024 3:03 PM [facility] HDL 52 >=40 mg/dL LAB CHEMISTRY METHOD 06/26/2024 3:03 PM [facility] LDL Calculated 63 0 - 100 mg/dL LAB CHEMISTRY METHOD 06/26/2024 3:03 PM [facility] VLDL Cholesterol Herber 12.8 mg/dL LAB CHEMISTRY METHOD 06/26/2024 3:03 PM [facility] Non HDL Chol. (LDL+VLDL) 76 <145 mg/dL LAB CHEMISTRY METHOD 06/26/2024 3:03 PM [facility] Chol/HDL Ratio 2.5 0.0 - 4.4 LAB CHEMISTRY METHOD 06/26/2024 3:03 PM [facility] Blood Venous blood specimen / Unknown Venipuncture / Unknown 06/26/2024 10:43 AM EST 06/26/2024 10:43 AM EST Mckinley Ferreira MD LAB BLOOD ORDERABLES Final Res ult [facility] [address] [place] [address], * External Diabetic Retina Eye Exam Report (04/16/2024) Anatomical Region Laterality Modality Ultrasound us Provider [facility] US PROCEDURES Final Result * COLONOSCOPY Anesthesia - [facility]; [facility] ENDOSCOPY (03/21/2024 10:42 AM EST) Anatomical Region [...] for surveillance. Narrative 03/21/2024 10:43 AM EST [facility] GI Patient Name: Kenny Can Procedure Date: 03/21/2024 10:23 AM Date of : 1965 Age: 58 Gender: Male Note Status: Finalized Attending MD: Rui Mckeon MD, Procedure Date No Time: 03/21/2024 Procedure: Colonoscopy Indications: High risk colon cancer surveillance: Personal history of colonic polyps Providers: Rui Mckeon MD Referring MD: Rui Mckeon MD Medicines: Monitored Anesthesia Care Complications: No immediate complications. Estimated blood loss: Minimal. Estimated Blood Loss: Estimated blood loss was minimal. Procedure: Pre-Anesthesia Assessment: - Prior to the procedure, a History and Physical was performed, and patient medications and allergies were reviewed. The patient is competent. The risks and benefits of the procedure and the sedation options and risks were discussed with the patient. All questions were answered and informed consent was obtained. Patient identification and proposed procedure were verified by the physician, the nurse, the nub card tender and the prosthetics technician in the pre-procedure area in the endoscopy suite. Mental Status Examination: alert and oriented. Airway Examination: normal oropharyngeal airway and neck mobility. Respiratory Examination: clear to auscultation. CV Examination: normal. Prophylactic Antibiotics: The patient does not require prophylactic antibiotics. Prior Anticoagulants: The patient has taken no anticoagulant or antiplatelet agents. ASA Grade Assessment: III - A patient with severe systemic disease. After reviewing the risks and benefits, the patient was deemed in satisfactory condition to undergo the procedure. The anesthesia plan was to use monitored anesthesia care (MAC). Immediately prior to administration of medications, the patient was re-assessed for adequacy to receive sedatives. The heart rate, respiratory rate, oxygen saturations, blood pressure, adequacy of pulmonary ventilation, and response to care were monitored throughout the procedure. The physical status of the patient was re-assessed after the procedure. After I obtained informed consent, the scope was passed under direct vision. Throughout the procedure, the patient's blood pressure, pulse, and oxygen saturations were monitored continuously. The Olympus Colonoscope was introduced through the anus and advanced to the cecum, identified by appendiceal orifice and ileocecal valve. The colonoscopy was performed without difficulty. The patient tolerated the procedure well. The quality of the bowel preparation was good. Findings: The perianal and digital rectal examinations were normal. Two pedunculated polyps were found in the transverse colon and ascending colon. The polyps were 5 to 9 mm in size. These polyps were removed with a cold snare. Resection and retrieval were complete. Estimated blood loss was minimal. There was evidence of a prior end-to-end colo-colonic anastomosis in the sigmoid colon. This was patent. Internal hemorrhoids were found during retroflexion. The hemorrhoids were Grade II (internal hemorrhoids that prolapse but reduce spontaneously). Procedure Code(s): --- Professional --- 31990, Colonoscopy, flexible; with removal of tumor(s), polyp(s), or other lesion(s) by snare technique Diagnosis Code(s): --- Professional --- D12.3, Benign neoplasm of transverse colon (hepatic flexure or splenic flexure) D12.2, Benign neoplasm of ascending colon CPT copyright 2020 [employer]. All rights reserved. The codes documented in this report are preliminary and upon telephone directory distributor driver review may be revised to meet current compliance requirements. Rui Mckeon MD 03/21/2024 10:42:42 AM This report has been signed electronically.Rui Mckeon MD Number of Addenda: 0 Note Initiated On: 03/21/2024 10:23 AM Scope Withdrawal Time: 0 hours 6 minutes 11 seconds Scope In: 10:33:57 AM Scope Out: 10:41:29 AM Endoscopy Department at [facility] - [address] [place] [phone] Procedure Note Rui Mckeon MD - 03/21/2024 [facility] GI Patient Name: Kenny Can Procedure Date: 03/21/2024 10:23 AM Date of [...] the physician, the nurse, theanesthetist and the prosthetics technician in the pre-procedure area in the [...] minimal. There was evidence of a prior jes-is-uzcvdod-colonic anastomosis in the sigmoid colon. This waspatent. Internal hemorrhoids were found duringretroflexion. The hemorrhoids were Grade II (internal hemorrhoids that prolapse but reduce spontaneously). Procedure Code(s): --- Professional --- 90043, Colonoscopy, flexible; with removal of tumor(s), polyp(s), or other lesion(s) by snare technique Diagnosis Code(s): --- Professional --- D12.3, Benign neoplasm of transverse colon (hepatic flexure or splenic flexure) D12.2, Benign neoplasm of ascending colon CPT copyright 2020 [employer]. All rights reserved. The codes documented in this report are preliminary and upon telephone directory distributor driver reviewmay be revised to meet current compliance requirements. Rui Mckeon MD 03/21/2024 10:42:42 AM This report has been signed electronically.Rui Mckeon MD Number of Addenda: 0 Note Initiated On: 03/21/2024 10:23 AM Scope Withdrawal Time: 0 hours 6 minutes 11 seconds Scope In: 10:33:57 AM Scope Out: 10:41:29 AM Endoscopy Department at [facility] - [address] [place] [phone] IMPRESSION: - Two 5 to 9 mm polyps in the transverse colon and in the ascending colon, removed with a cold snare. Resected and retrieved. - Patent end-to-end colo-colonic anastomosis. - Internal hemorrhoids. Recommendation: - Await pathology results. - Repeat colonoscopy in 5 years for surveillance. Rui Mckeon MD GI~PROCEDURE ORDERABLES Fin al Result * Depression Screening (12/16/2016) Depression Screening abstracted Historical Provider HEALTH MAINTENANCE Final Result * Hepatitis C Screening (09/17/2015) Hepatitis C Screening abstracted Historical Provider HEALTH MAINTENANCE Final Result from Last 3 Months or Most Recently Relevant to Health Maintenance Insurance [facility] MEDIC[facility] Member Subscriber Plan / Payer (Ef fective 2017-Present) Name:KENNY CAN Relation to Subscriber:Self Name:Kenny Can Payer ID:[id number] Group ID:[id number] Type:Not on file Address: [place] [phone] Advance Directives Documents on File Type Date Recorded 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
--- OUTSIDE RECORDS SUMMARY | 2024-10-29 08:13 | XMS_ITS | Continuity of Care Document ---
Author Name Aldo Mahajan Address [address] [place] [id number] Organization Unknown Address [address] [place] [address] Medications No known medications Problems No known problems
--- OUTSIDE RECORDS SUMMARY | 2024-10-29 08:13 | XMS_ITS | Data Portability ---
Author Organization [employer] [facility] Address [address] [place] [address] Care Team Providers Care Lead Software Test Engineer Name Role Phone TEE AYALA Primary Care Provider [phone] HIM KATE OTHER Assessment Encounter Date Assessment Date Assessment LastModified by Organization Details LastModified Time 04/07/2024 04/07/2024 I have reviewed and agree with the assessment and plan as documented by the donor processor. I provided real time medical direction for this encounter and was immediately available to provide additional phone based assistance as needed. History as noted by donor processor. Pt with history of HTN, COPD, HLD, CHF and DM2. Pt reports an occasionally productive cough, nasal congestion and rhinorrhea since his surgey to repair deviated septum 1 week ago. He also notes feeling mildly lightheaded. He is still on a course of post op cephalexin and has 1 more day of the antibiotic. He denies any fevers, TILLEY, CP or SOB. No epistaxis. In addition to the cephalexin, pt is also using saline nasal spray and sinus rinses as instructed by his ENT surgeon. Pt has follow up with his surgeon on 04/10. On exam, pt appears comfortable, no distress. Vitals ok, afebrile, O2 sat 94% RA. Lungs clear, no wheezing or rhonchi. Impression: Pt is 1 week s/p surgical repair of deviated septum and is reporting that since the surgery he has noted nasal congestion, rhinorrhea and cough with no fevers or SOB. He is still taking prescribed cephalexin post op and using saline nasal spray and sinus rinses. Pt appears well on exam, is afebrile and lungs are clear. Pt is reassured that his symptoms are likely related to his recent surgery. Of note, pt was diagnosed with Covid-19 last month and treated with paxlovid. Pt to continue the antibiotics and other meds as prescribed and will keep his f/u with his surgeon in 3 days as scheduled. Pt instructed to seek medical attention right away with any worsening or new symptoms, which are reviewed with him. [email or web address] Not available 04/07/2024 14:28:16 07/09/2024 07/09/2024 I provided real -time medical direction via phone for this encounter and was available for additional phone-based assistance as needed. I have reviewed and agree with the Assessment and Plan as documented by the Gis Manager. Patient given the opportunity to ask questions. Our service contacted for an assessment of: Wheezing and shortness of breaths As per above, patient with a longstanding history of COPD. Calls this service after developing about 3 weeks' worth of shortness of breath and HUERTA. Feels like this is a usual COPD exacerbation. Denies chest pain. No exposure to sick individuals. Per donor processor on the scene, vital signs are stable and the patient is afebrile. COVID and flu are negative. Exam per donor processor on the seem consistent with COPD exacerbation with diffuse wheezing. Good air movement and no increased work of breathing. Administered DuoNeb with good effect. Administered 1st dose of prednisone 60 mg. Administered 1st dose of a Z-Suleman at 500 mg of azithromycin x1. Impression: COPD exacerbation Plan: Patient states she does better with a prolonged prednisone taper for which I prescribed 30 tablets with a 2 week taper. Also to complete a Z-Suleman and therefore for tabs of azithromycin at 250 mg was sent to her pharmacy as well. She does have DuoNebs at home but will need to call her PCP for a refill. She was not using those regularly at home which we encouraged her to do. Allergies: Reviewed and updated PCP f/u: We discussed the diagnostic uncertainty of home visits and the risk associated with this. In this case, the patient and I felt this to be an acceptable and reasonable amount of risk given the benefit of avoiding an ED visit. We discussed the need to seek care urgently/emergentl y in the setting of any new or worsening serious symptoms, particularly fever chills lightheadedness altered mental status [email or web address] Not available 07/09/2024 10:36:51 Plan of Treatment Reminders Order Date Submit Date Provider Last Modified By Organization Details Last Modified Time Details Appointments None recorded. Lab rapid SARS CoV 2 Ag, QL IA, respiratory specimen 2024 025 [facility], [address] [place] [address], [id number] 5 19:08:02 rapid flu (A+B) 2024 025 [facility], [address] [place] [address], [id number] 5 19:08:03 rapid SARS CoV 2 Ag, QL IA, respiratory specimen 2024 025 [facility], [address] [place] [address], [id number] 5 10:56:55 rapid flu (A+B) 2024 025 [facility], [address] [place] [address], [id number] 5 10:57:19 rapid flu (A+B) 2023 024 [facility], [address] [place] [address], [id number] 4 08:13:25 rapid SARS CoV 2 Ag, QL IA, respiratory specimen 2023 024 [facility], [address] [place] [address], [id number] 4 08:13:45 Referral None recorded. Procedures None recorded. Surgeries None recorded. Imaging None recorded. Medication Orders doxycycline hyclate 100 mg tablet 2024 025 [facility], [address], [place], [id number], 5 18:17:21 doxycycline hyclate 100 mg tablet 2024 025 [facility]04869, [address], [place], [id number], 5 18:17:12 Zyrtec 10 mg tablet 2024 025 [facility] #86027, [address], [place], [id number], 5 18:17:20 prednisone 20 mg tablet 2024 025 [facility] #41433, [address], [place], [id number], 5 18:23:17 prednisone 20 mg tablet 2024 025 [facility] #40996, [address], [place], [id number], 5 18:23:24 Flonase Allergy Relief 50 mcg/actuati on nasal spray,suspe nsion 2024 025 [facility] #17980, [address], [place], [id number], 5 18:23:25 cetirizine 10 mg tablet 2024 025 [facility] #26808, [address], [id number], 5 18:23:24 prednisone 20 mg tablet [address] [facility]03156, [address], [place], [id number], 5 10:33:56 albuterol sulfate 2.5 mg/3 mL (0.083 %) solution for nebulizatio n [address] [facility] #95964, [address] [place], [id number], 5 10:33:57 Zithromax TRI-SULEMAN 500 mg tablet [address] [facility] #41282, [address] [place], [id number], 5 10:33:56 Zithromax Z-Suleman 250 mg tablet 2024 025 [facility] #08620, [address], [place], [id number], 5 10:34:05 azithromyci n 250 mg tablet 2024 025 [facility] #46791, [address], [id number], 5 10:34:05 prednisone 10 mg tablets in a dose pack 2024 025 [facility] #53918, [address], [place], [id number], 5 10:34:02 Patient TargetsNo targets recorded. Patient InstructionsNo instructions recorded. Reason for Referral None Reported. Results Created Date Observation Date Name Description Value Unit Range Abnormal Flag Note LastModifiedBy Organization Detail LastModifiedTime 05/23/19 25 05/23/2024 rapid strep group A, throa t Strep negati ve Not Available [facility] ed [address] [place] [address], [id number] 05/23/2024 15:49:36 05/23/19 25 05/23/2024 rapid flu (A+B) Flu negati ve Not Available [facility] ed [address] [place] [address], [id number] 05/23/2024 15:49:35 05/23/19 25 05/23/2024 rapid SARS CoV 2 Ag, QL IA, respi rator y speci men rapid SARS CoV 2 Ag, QL IA, respiratory specimen negati ve Not Available [facility] [address] [place] [address], [id number] 05/23/2024 15:49:34 07/10/19 25 07/09/2024 rapid flu (A+B) Flu negati ve Not Available [facility] ed [address] [place] [address], [address] 07/09/2024 10:22:18 03/03/20 2507/09/2024 rapid SARS CoV 2 Ag, QL IA, respi rator y speci men rapid SARS CoV 2 Ag, QL IA, respiratory specimen negati ve Not Available [facility] ed [address] [place] [address], [phone] 07/09/2024 10:22:16 07/27/19 25 07/26/2024 rapid flu (A+B) Flu positi ve Not Available [facility] ed [address] [place] [address], [id number] 07/26/2024 18:22:13 07/27/19 25 07/26/2024 rapid SARS CoV 2 Ag, QL IA, respi rator y speci men rapid SARS CoV 2 Ag, QL IA, respiratory specimen negati ve Not Available [address], [phone] 07/26/2024 18:22:11 Result Notes None recorded. Medical Equipment None Reported. Allergies Allergen ID Allergen Name Allergen Category Reaction Reaction Severity Criticality Documentation Date Start Date Code Code System Note Provider Name and Address Organization Details Recorded Time 2568 Product containin g penicilli n (product) medicatio n Not available Not available Not available 10/18/2022 45865 8001 SNOMED Not Available [facility] - [facility] 4 03:33:58 4221 ketorolac medicatio n other moderate unabletoasse ss 05/02/2023 80050 RxNorm Rambo Mahajan MD [address] [place] [address],[address], [place], [address], [place] [employer] [facility] [employer] 4 15:47:27 Medications Name Sig Start Date Stop Date Status Note LastModified by Organization Details LastModified Time furosemide 40 mg tablet TAKE 1 TABLET BY MOUTH DAILY active Not Available Not Available Not Available atorvastatin 40 mg tablet TAKE 1 TABLET BY MOUTH EVERY DAY active Not Available Not Available No t Available metformin 500 mg tablet TAKE 1 TABLET BY MOUTH TWICE DAILY WITH MEALS active Not Available Not Available No t Available cyanocobalam in (vit B-12) ER 1,000 mcg tablet,exten ded release active Not Available Not Available Not Available prednisone 10 mg tablet active Not Available Not Available Not Available doxycycline hyclate 100 mg capsule TAKE 1 CAPSULE BY MOUTH TWICE DAILY FOR 9 DAYS active Not Available Not Available No t Available ipratropium 0.5 mg-albuterol 3 mg (2.5 mg base)/3 mL nebulization soln INHALE 3ML INTO THE LUNGS FOUR TIMES DAILY active Not Available Not Available Not Available albuterol sulfate 2.5 mg/3 mL (0.083 %) solution for nebulization USE 2.5MG WITH NEBULIZER EVERY 4 HOURS NEEDED FOR SHORTNESS OF BREATH OR WHEEZING active Not Available Not Available Not Available trazodone 50 mg tablet active Not Available Not Available No t Available cetirizine 10 mg tablet TAKE 1 TABLET BY MOUTH DAILY FOR 30 DAYS active Not Available Not Available Not Available azithromycin 250 mg tablet TAKE 1 TABLET (250 MG) BY ORAL ROUTE ONCE DAILY FOR 4 DAYS active Not Available Not Available No t Available naltrexone 50 mg tablet TAKE 1 TABLET BY MOUTH DAILY active Not Available Not Available Not Available FreeStyle Lancets 28 gauge USE TWICE DAILY active Not Available Not Available No t Available lisinopril 20 mg tablet TAKE 1 TABLET BY MOUTH DAILY active Not Available Not Available Not Available prednisone 20 mg tablet TAKE 2 TABLETS BY MOUTH EVERY DAY FOR 4 DAYS DIRECTED active Not Available Not Available No t Available moxifloxacin 400 mg tablet TAKE 1 TABLET BY MOUTH DAILY FOR 5 DAYS active Not Available Not Available N ot Available amlodipine 5 mg tablet TAKE 1 TABLET BY MOUTH EVERY DAY active Not Available Not Available No t Available peg-electrol yte solution 420 gram oral solution active Not Available Not Available Not Available doxycycline monohydrate 100 mg tablet TAKE 1 TABLET BY MOUTH TWICE DAILY active Not Available Not Available No t Available prednisone 10 mg tablets in a dose pack Starting July 10, 2024: take 4 tabs po daily times 3 days then take 3 tabs po daily times 3 days then take 2 tabs po daily times 3 days then take 1 tab po daily times 3 days then DC 2024 active Not Available Not Available Not Avai lable amlodipine 10 mg tablet TAKE 1 TABLET BY MOUTH DAILY active Not Available Not Available Not Available metformin 1,000 mg tablet TAKE 1 TABLET BY MOUTH TWICE DAILY WITH MEALS active Not Available Not Available No t Available lisinopril 10 mg tablet TAKE 1 TABLET BY MOUTH DAILY active Not Available Not Available Not Available prednisone 50 mg tablet TAKE 1 TABLET BY MOUTH EVERY DAY IN THE MORNING FOR 5 DAYS active Not Available Not Available No t Available budesonide 0.5 mg/2 mL suspension for nebulization USE 1 VIAL IN 240 ML NASAL SALINE AND IRRIGATE NASALLY TWICE DAILY DIRECTED active Not Available Not Available Not Available bisacodyl 5 mg tablet,delay ed release active Not Available Not Available N ot Available lisinopril 5 mg tablet TAKE 1 TABLET BY MOUTH DAILY active Not Available Not Available Not Available ergocalcifer ol (vitamin D2) 1,250 mcg (50,000 unit) capsule TAKE 1 CAPSULE BY MOUTH 1 TIME EVERY WEEK active Not Available Not Available No t Available levofloxacin 750 mg tablet TAKE 1 TABLET BY MOUTH DAILY active Not Available Not Available Not Available zolpidem 10 mg tablet active Not Available Not Available No t Available methylpredni solone 4 mg tablets in a dose pack FOLLOW PACKAGE DIRECTIONS active Not Available Not Available N ot Available albuterol sulfate HFA 90 mcg/actuatio n aerosol inhaler INHALE 2 PUFFS BY MOUTH EVERY 4 HOURS NEEDED FOR COUGH OR WHEEZING active Not Available Not Available No t Available fluticasone propionate 50 mcg/actuatio n nasal spray,suspen angelica SHAKE LIQUID AND USE 2 SPRAYS IN EACH NOSTRIL DAILY active Not Available Not Available No t Available metformin ER 500 mg tablet,exten ded release 24 hr TAKE 2 TABLETS BY MOUTH EVERY DAY WITH BREAKFAST active Not Available Not Available No t Available doxycycline hyclate 100 mg tablet TAKE 1 TABLET BY MOUTH TWICE DAILY FOR 7 DAYS active Not Available Not Available No t Available bupropion HCl XL 300 mg 24 hr tablet, extended release active Not Available Not Available Not Available alfuzosin ER 10 mg tablet,exten ded release 24 hr TAKE 1 TABLET BY MOUTH AT BEDTIME active Not Available Not Available No t Available Lubricant Eye Drops 0.5 % INSTILL 1 DROP IN BOTH EYES FOUR TIMES DAILY active Not Available Not Available No t Available FreeStyle Lite Meter kit USE TO CHECK BLOOD GLUCOSE TWICE DAILY active Not Available Not Available Not Available FreeStyle Lite Strips USE ONE TEST STRIP TO CHECK BLOOD SUGARS TWICE DAILY active Not Available Not Available Not Available budesonide 1 mg/2 mL suspension for nebulization USE 1MG WITH NEBULIZER TWICE DAILY active Not Available Not Available Not Available diclofenac 1 % topical gel APPLY 4 GRAMS TOPICALLY TO THE AFFECTED AREA TWICE DAILY NEEDED FOR KNEE PAIN active Not Available Not Available No t Available ketorolac 30 mg/mL injection solution Inject 30 mg every 6 hours by intravenous route. 2022 active Not Available Not Available Not Avai lable Breo Ellipta 100 mcg-25 mcg/dose powder for inhalation INHALE 1 PUFF INTO THE LUNGS DAILY active Not Available Not Available No t Available Incruse Ellipta 62.5 mcg/actuatio n powder for inhalation INHALE 1 PUFF BY MOUTH INTO LUNGS DAILY active Not Available Not Available Not Available Ozempic 1 mg/dose (4 mg/3 mL) subcutaneous pen injector INJECT 1MG UNDER THE SKIN EVERY 7 DAYS active Not Available Not Available No t Available [employer] COVID-19 Ag Self Test kit TEST DIRECTED TODAY active Not Available Not Available No t Available Daily-Karen (with folic acid) 400 mcg tablet TAKE 1 TABLET BY MOUTH DAILY active Not Available Not Available Not Available Ozempic 2 mg/dose (8 mg/3 mL) subcutaneous pen injector INJECT 2 MG UNDER THE SKIN EVERY 7 DAYS active Not Available Not Available No t Available Paxlovid 150 mg-100 mg tablets in a dose pack (Moderate Renal Dose) TAKE 2 TABLETS BY MOUTH TWICE DAILY X 5 DAYS active Not Available Not Available No t Available Ozempic 0.25 mg or 0.5 mg (2 mg/3 mL) subcutaneous pen injector active Not Available Not Available Not Available Vitals Date Recorded Heart rate Respiratory rate Oxygen saturation Oxygen saturation in Arterial blood by Pulse oximetry Body temperature Systolic blood pressure Diastolic blood pressure Provider Name and Address Organization Details Last Updated DateTime 5 90 /min 16 /min 95 % 95 % 96.9 [degF] 154 mm[Hg] 87 mm[Hg] Not Available [facility] - [facility] 5 10:14:27 Date Recorded Respiratory rate Heart rate Body temperature Oxygen saturation Oxygen saturation in Arterial blood by Pulse oximetry Systolic blood pressure Diastolic blood pressure Provider Name and Address Organization Details Last Updated DateTime 5 18 /min 98 /min 98 [degF] 95 % 95 % 124 mm[Hg] 80 mm[Hg] Not Available [facility] 5 18:11:22 Date Recorded Respiratory rate Body temperature Body weight Body height Heart rate Oxygen saturation Oxygen saturation in Arterial blood by Pulse oximetry Systolic blood pressure Diastolic blood pressure Provider Name and Address Organization Details Last Updated DateTime 5 18 /min 98.4 [degF] 701371. 616 g 167.64 cm 80 /min 96 % 96 % 115 mm[Hg] 84 mm[Hg] Not Available [facility] 5 17:57:16 Date Recorded Heart rate Respiratory rate Oxygen saturation Oxygen saturation in Arterial blood by Pulse oximetry Body temperature Systolic blood pressure Diastolic blood pressure Provider Name and Address Organization Details Last Updated DateTime 4 90 /min 18 /min 94 % 94 % 97.6 [degF] 148 mm[Hg] 81 mm[Hg] Not Available [facility] production 4 14:10:13 Date Recorded Body temperature Heart rate Body weight Respiratory rate Oxygen saturation Oxygen saturation in Arterial blood by Pulse oximetry Body height Systolic blood pressure Diastolic blood pressure Provider Name and Address Organization Details Last Updated DateTime 4 98.8 [degF] 114 /min 583105. 272 g 16 /min 97 % 97 % 167.64 cm 115 mm[Hg] 79 mm[Hg] Not Available [employer] [facility] 4 15:59:50 Social History None recorded. Functional Status None recorded. Mental Status None recorded. Family History Nothing Reported. Medical History No medical history recorded. Past Encounters Encounter ID Performer Location Encounter Start Date Encounter Closed Date Diagnosis/Indication Diagnosis SNOMED-CT Code Diagnosis ICD10 Code Diagnosis Note [id number] Toño Bay MD [facility] - [facility] [address] [place] [id number] 07/14/2022 13:23:34 07/18/2022 10:49:42 Dysuria 79839702 R30.0 56yo man presents with feeling unable to fully empty his bladder. He is able to urinate (put out 150cc void during visit). UA was not suggestive of UTI. He may have prostatic obstructio n leading to incomplete emptying. He will discuss with his PCP at upcoming visit (may need tamsulosin or urology evaluation ). No interventi on today. [id number] Toño Bay MD Main - [facility] [address] [place] [id number] 07/16/2022 14:02:45 07/18/2022 11:08:28 Chest wall pain 550559366 R07.89 56yo man presents with left chest wall pain that started acutely after sneezing yesterday. The pain is reproducib le to palpation and worse with coughing. Most consistent with MSK pain. Reproducib le to palpation excludes cardiac chest pain / acute coronary syndrome, PE, or aortic dissection . No interventi on performed. [id number] Torrie Rios MD Main - [facility] [address] [place] [phone] 10/18/2022 10:52:52 10/20/2022 15:37:18 Abdominal mass [id number] R19.00 possible incarcerat ed hernia- advised need for medical eval/ imaging- if incarcerat ed hernia may need OR- expl need to go to the ER for evaluation - he is agreeable to go to [facility]- report called to [facility] ER /complicat ed by DM- BS mildly elevated Acute exac erbation of chronic obstructive pulmonary disease [id number] J44.1 wheezing resolved w neb( pat does not have nebs at home? COPD exacerbati on vs reaction to Alfuzosin [id number] Melissa Torres MD Main - [facility] [address] [place] [id number] 01/03/2023 14:19:15 01/04/2023 11:05:29 Low back pain [id number] M54.50 57 year old male being evaluated for one day of acute right-side d low back pain. Patient reports has not tried much to make it feel better, is requesting a prescripti on for a heating pad. Denies any trauma or falls. Ambulating with pain. Exam notable for normal vital signs, neurologic exam grossly normal, no tenderness to palpation over lumbar paraspinal s. Presentati on consistent with acute lumbar strain, recommende d applicatio n of heat/massa ge, along with simple analgesics if available. IM toradol 30 mg given today, FU outpatient team if symptoms persist, as may benefit from PT or a long-term pain regimen. [id number] Thony Veliz MD Main - [facility] [address] [place] [id number] 03/22/2023 12:58:37 03/22/2023 13:27:57 Inguinal pain [id number] R10.2 This 57-year-ol d male with morbid obesity called complainin g of pain and swelling in his left inguinal region. I reviewed images of the area and there appears to be a large mass, perhaps some type of tumor or hernia. I ordered Toradol 30 mg IM. He will follow-up with his PCP for a complete workup. If his pain worsens, he should go to the ER. The patient agreed with this plan. [id number] Torrie Rios MD Main - [facility] [address] [place] [phone] 04/27/2023 14:02:56 05/02/2023 09:47:43 Chronic obstructive pulmonary disease [id number] J44.9 w/ likely bacterial bronchitis -due to persistent colored sputum will cover with antibiotic s. Advised to continue the Mucinex stay well-hydra santosh. Advised to follow-up with PCP after the holidays. Patient is not wheezing and his blood sugar is slightly high so do not want to use steroids which would exacerbate the hyperglyce evelin. Advised to increase his DuoNeb to 3 times a day. Red flags reviewed by medic. Patient verbalized understand ing [id number] Rambo Mahajan MD Main - [facility] [address] [place] [phone] 05/02/2023 15:42:17 05/04/2023 10:29:53 Acute thoracic back pain [id number] M54.6 As noted, we were called to see this patient regarding concerns of thoracic back pain. Evaluation in the field was performed by my donor processor colleague, as noted above, I provided real-time direction and supervisio n for this visit. The evaluation revealed a patient in good spirits and with focal, non-radiat ing, mildly tender mid-back pain below scapula. No associatio n with exertion or other bodily system functions. No hx IVDU or trauma. No f/c and as noted by my colleague. Has not tried any meds for this yet. Toradol allergy. Impression :mid-back vs thoracic back pain, likely spastic given his descriptio n of being due to sleep position. Plan:OTC pain meds PRNRec'd dosing as per directions but a good regimen woudl likely be:Tylenol 650-1000 TID and no more than thisNaprox en 220-440 BID PRN pain Primary care, considerch lisa in call week of 05/03 Dispositio n: We discussed the diagnostic uncertaint y of home visits and the risk associated with this. In this case, the patient and I felt this to be an acceptable and reasonable amount of risk given the benefit of avoiding an ED visit. We discussed the need to seek care urgently/e mergently in the setting of any new or worsening serious symptoms, particular ly fever, radiating pain, sob. [id number] Rambo Mahajan MD Main - [facility] [address] [place] [id number] 08/12/2023 12:22:56 08/14/2023 18:24:57 Acute exacerbation of chronic obstructive pulmonary disease [id number] J44.1 As noted, we were called to see this patient regarding concerns of dyspnea and cough. Evaluation in the field was performed by my donor processor colleague, as noted above, I provided real-time direction and supervisio n for this visit. The evaluation revealed hypoxemia and dyspnea, largely reassuring VS, and quiet breath sounds with no focal consolidat yvan sounds or air entry deficits. He had a brisk response to duoneb and has COPD, so in context this looks like a COPD exacerbati on, probably viral vs allergic. Impression :COPD exacerbati on, moderately severe but reasonable to treat at home. Plan:Pred 60 nowPred 50 x 5 daysAzithr o 500 nowAzithro 250 x 4 daysDuoneb nowContinu e home COPD regimen Primary care, considerch lisa-in call Monday or Monday Dispositio n:We discussed the diagnostic uncertaint y of home visits and the risk associated with this. In this case, the patient and I felt this to be an acceptable and reasonable amount of risk given the benefit of avoiding an ED visit. We discussed the need to seek care urgently/e mergently in the setting of any new or worsening serious symptoms, particular ly severe LH, severe SOB, confusion. [id number] Rambo Mahajan MD Main - [facility] [address] [place] [address] [phone] 03/03/2024 16:20:22 03/04/2024 00:29:38 Acute COVID-19 [id number] U07.1 As noted, we were called to see this patient regarding concerns of COVID exposure and now symptomati c febrile illness. Evaluation in the field was performed by my donor processor colleague, as noted above, I provided real-time direction and supervisio n for this visit. The evaluation revealed reasuring vs notable for mild fever and tachycardi a. GFR recently 40On atorva, amlodipine , zolpidem, a few others, interactio ns checked Impression :Acute COVID without any e/o severe or decompensa santosh disease but higher risk due to fever and obesity. Plan:Paxlo vid, lower GFR reduced doseCounse led on red flags to seek careCounse led on reboundRec 'd to hold atorva, amlodipine , zolipidem for the 5-day course timing Primary care, considerch lisa in call this week Dispositio n:We discussed the diagnostic uncertaint y of home visits and the risk associated with this. In this case, the patient and I felt this to be an acceptable and reasonable amount of risk given the benefit of avoiding an ED visit. We discussed the need to seek care urgently/e mergently in the setting of any new or worsening serious symptoms, particular ly dyspnea, severe LH, confusion, severe sx. [id number] Abilio Kemp MD Main - [facility] [address] [place] [address] [phone] 04/07/2024 14:10:09 04/07/2024 21:44:27 Nasal congestion [id number] R09.81 [id number] Doug Mata MD Main - [facility] [address] [place] [address] [phone] 04/22/2024 15:59:48 04/22/2024 23:38:54 Viral syndrome [id number] B34.9 As noted, we were called to see this patient regarding concerns of diarrhea, body aches, malaise, sore throat. Evaluation in the field was performed by my donor processor colleague, as noted above, I provided real-time direction and supervisio n for this visit. The evaluation revealed normal vital signs and unremarkab le physical examinatio n. Diarrhea from yesterday had resolved. Impression :Viral syndrome, diarrhea Plan:Suppo rtive care Primary care, considerC diff testing if symptoms persisting Dispositio n: We discussed the diagnostic uncertaint y of home visits and the risk associated with this. In this case, the patient and I felt this to be an acceptable and reasonable amount of risk given the benefit of avoiding an ED visit. We discussed the need to seek care urgently/e mergently in the setting of any new or worsening serious symptoms, particular ly worsening diarrhea, dehydratio n, fevers, abdominal pain. [id number] Torrie Rios MD Main - [facility] [address] [place] [address] [phone] 05/23/2024 15:48:25 07/05/2024 12:23:19 Viral upper respiratory tract infection [id number] J06.9 [id number] Sangeetha Redman MD Main - [facility] [address] [place] [address] [phone] 07/09/2024 10:10:04 07/09/2024 11:45:13 Acute exacerbation of chronic obstructive pulmonary disease [id number] J44.1 [id number] Mojgan Morataya MD Main - [facility] [address] [place] [address] [phone] 07/26/2024 18:11:16 07/26/2024 21:20:04 Cough [id number] R05.9 As noted, we were called to see this patient regarding concerns of cough. Evaluation in the field was performed by my donor processor colleague, as noted above, I provided real-time direction and supervisio n for this visit. The evaluation revealed 58 yo man with copd/asthm a who has had a cough for 1-2 weeks. He recently completed steroids and antibiotic s for exacerbati ons with good improvemen t. He now has recurrent cough and nasal congestion . He denies dyspnea or wheezing. He has good VS with O2 94% on RA and no wheezing. He is flu A +. He is taking albuterol nebulizer daily, albuterol MDI rarely. He does nasal irrigation with saline. He does not have a daily steroid inhaler. Impression :viral URI syndrome Plan:40mg prednisone today, followed by rapid taperConti nue albuterol neb vs MDI as neededCont inue nasal irrigation , add flonase.Ad d as needed antihistam ine. Primary care, considerad dition of daily steroid or steroid/LA BA inhaler Dispositio n: We discussed the diagnostic uncertaint y of home visits and the risk associated with this. In this case, the patient and I felt this to be an acceptable and reasonable amount of risk given the benefit of avoiding an ED visit. We discussed the need to seek care urgently/e mergently in the setting of any new or worsening serious symptoms, particular ly changes to consiousne ss, chest pain, dyspnea. [id number] MILY THOMPSON MD Main-[facility] ED Medical [address] [phone] 10/11/2024 17:44:28 10/11/2024 23:05:05 Acute sinusitis [id number] J01.90 Evaluation in the field was performed by my donor processor colleague, as noted above, I provided real-time direction and supervisio n for this visit. The evaluation revealed a 59-year-ol d male with a history of hypertensi on, congestive heart failure, COPD/asthm a, type 2 diabetes mellitus, hyperlipid emia, and right sinus surgery (March) , presenting with a 3-week history of cold-like symptoms and congestion .The patient reports that his symptoms initially involved more chest congestion , which has since resolved. He now has persistent nasal congestion and drainage green in color, more prominent on the left associated with left-sided jaw and sinus pain. He denies fever, chills, shortness of breath, nausea, or vomiting. He has been using a neti pot without relief. Though he has Flonase at home, he has not yet used it. Vital Signs:BP: 115/84 HR: 80 RR: 18 SpO : 96% on room air Temp: 98.4 FExam: AAO, no acute distress. Speech is congested. Tenderness over the left jaw and ethmoid sinus. Lungs clear to auscultati on bilaterall y. No lower extremity edema.Ned rgies: Reviewed Impression :Acute sinusitis (likely bacterial, left-sided dominant) Plan:Doxyc ycline 100 mg PO BID 7 daysCetiri farhatne sent to pharmacyAd vise to start Flonase today; continue use dailyConti nue Neti pot as toleratedA cetaminoph en as needed for facial/jaw pain until antibiotic s begin to take effectWarm compresses to the face to reduce sinus pressure and aid drainageFo llow up with ENT if no improvemen t after completing antibiotic courseRed flags discussed with the patient, including: fever or chills, swelling or redness around the eye, severe or worsening headache, vision changes, neck stiffness, new shortness of breath or chest pain Primary care, consider__ _ Dispositio n: We discussed the diagnostic uncertaint y of home visits and the risk associated with this. In this case, the patient and I felt this to be an acceptable and reasonable amount of risk given the benefit of avoiding an ED visit. We discussed the need to seek care urgently/e mergently in the setting of any new or worsening serious symptoms, particular lyfever or chills, swelling or redness around the eye, severe or worsening headache, vision changes, neck stiffness, new shortness of breath or chest pain Health Concerns Section Related Observation LastModified by Organization Detai ls LastModified Time None Recorded Concern Status LastModified by Organization Details LastModified Time None Recorded Advance Directives Directive None Recorded Payers Insurance Date Sequence Insurance Name Policy Number Policy Zacarias Covered Member ID Zacarias Member ID Guarantor Name 10/18/2022 1 [facility] - DOS PRIOR TO 2022 - DUAL ELIGIBLE (MEDICARE REPLACEMENT/ADV ANTAGE - HMO) Kenny Faust [id number] Kenny Faust 10/11/2024 1 [facility] - DOS ON OR AFTER 2022 - DUAL ELIGIBLE - PENITENTIARY OPTIONS AND ONE CARE (MEDICARE REPLACEMENT/ADV ANTAGE - HMO) Kenny Faust [id number] Kenny Ramey Christianne Notes Date Note Type Note Provider Name and Address Organization Details Recorded Time 04/07/2024 text/html This was a supervised home visit with donor processor Robin Em. [facility] Nurse Triage Notes (Sj Jimenez): Chief Complaints: Cough, Dizziness PMH: Hypertension, Congestive Heart Failure, COPD/Asthma Comments: Cost Estimating Manager verified the Pt.'s name//address and phone number. Education provided on the response time and the Pt. was advised to monitor reported s/s and seek emergency treatment if needed. Pt reports feeling unwell with a cough/cold and congestion with dizziness - SOB - Pt is speaking full sentences - Breathing is non labored - Cough is productive - Denies fever -Denies headache - Denies chest pain - Reports taking over the counter cold medication with no relief - Increased use of his inhaler - Pt reports having nasal surgery on Monday. Follow up appt on Monday. Wellness visit requested .................... .................... .................... .................... .................... .................... .................... . Gis Manager Note From Robin Em: This 58-year-old male with a history including but not limited to hypertension, COPD, congestive heart failure, hyperlipidemia, type II diabetes requested a visit today to address rhinorrhea and cough. Patient tells me he had surgery last Monday to repair a deviated septum and was discharged home with one week of cephalexin which he has been taking faithfully. Patient was told to expect a cough that may sometimes be productive and sinus congestion during the recovery process. Patient is using a nasal irrigation machine as well. Patient was concerned because one of the children in the home also had URI symptoms and is looking for reassurance. Patient denies any chest pain, shortness of breath, dyspnea on exertion, fevers, nausea, vomiting, diarrhea.Patient presents awake and alert, in no acute distress, speaking full sentences. His vital signs are reasonably stable and he is afebrile. Nonfocal neurological exam. Normal gait. Lungs are clear throughout auscultation. Abdomen is soft, nontender, nondistended. No lower extremity edema.I reassured him that his symptoms are normal in this recovery process and that he she continue following all of his discharge instruction orders. I also recommend he keeps his follow-up appointment on Monday. I instructed him to present to the emergency department for any new or worsening severe symptoms such as chest pain, severe shortness of breath, high fever, altered mental status. The patient and his family were given the opportunity to ask questions and are agreeable to this plan. .................... .................... .................... .................... .................... .................... .................... . [facility] Consulted: Abilio Kemp .................... .................... .................... .................... .................... .................... .................... . Disposition: Hiren Abilio Kemp MD [address] [place] [address],[address], [place], [phone], [employer] 04/07/2024 14:28:29 04/22/2024 text/html [facility] Nurse Triage Notes (Jaquan Hughes - JOHANN): Reason For Request: Pt reporting that he is sick>diarrhea, body aches, heavy congestion Denies: Sudden onset of dental pain, unable to manage own secretions Nosebleed lasting longer than one hour; unable to stop bleeding Throat swelling/difficult swallowing Chief Complaints: Diarrhea, Weakness PMH: Hypertension, Congestive Heart Failure, COPD/Asthma, Diabetes Mellitus Type 2, Hyperlipidemia Comments: Cost Estimating Manager verified the patient's name//address and phone number. Pt calling reporting chills, body aches, nasal congestion, sore throat and diarrhea for the last few days. Pt denies any known sick contacts. Pt reports he has surgery 04/01 on his nose for septal repair. Education provided on the response time and the patient was advised to monitor reported s/s and seek emergency treatment if needed -Crystal Hughes RN Gis Manager Organization Information for Rambo Kiser Business Legal Name: [employer] Address: [address] [place] [address], Patient Coordinator Front Desk: Leighton Mena MD CLIA No.: [id number] Gis Manager POC Test Results from Rambo Kiser Rapid COVID antigen (15:58:08) COVID: - Rapid influenza antigen (15:58:09) Flu: - .................... .................... .................... .................... .................... .................... .................... . Gis Manager Note From Rambo Kiser: [facility] makes pt contact a 58 YO M CC of a cold like S/SMIH obtains vital signs. Tests pt for covid, flu a&b negative. PT explains he had a surgery to open up his sealed nasal passages on the right nostril on April 01. He believes he was given a 7 day course of antibiotics. PT is experiencing a runny nose mild sore throat, body aches, and also diarrhea yesterday. PT today has not had any diarrhea. PTs mucus is brown tinged like dried blood. PT had stiches from surgery removed recently. PT has no temp. [facility] contacts [facility] and [facility] suggests PT may be getting a viral illness and to stay hydrated. IF pt still experiences diarrhea today he can try some OTC Imodium otherwise monitor symptoms and if they get worse to call us back for reevaluation. .................... .................... .................... .................... .................... .................... .................... . [facility] Consulted: Doug Mata .................... .................... .................... .................... .................... .................... .................... . Disposition: Fulfilled Doug Mata MD [address] [facility],[address], [place], [phone], [employer] 04/22/2024 16:49:47 07/09/2024 text/html [facility] Nurse Triage Notes (Opal Laird): Reason For Request: sob Patient Reports: Cough; Shortness of breath with exertion Denies: Increased work of breathing/labored with or without fever Unable to speak in full sentences without distress Discoloration of skin -cyanosis Needs to sleep sitting up, can t catch breath Shortness of breath in setting of confusion Chief Complaints: Breathing Problems PMH: Hypertension, Congestive Heart Failure, COPD/Asthma, Diabetes Mellitus Type 2, Hyperlipidemia PMH Reviewed at 07/09/2024:17 Allergies Reviewed at 07/09/2024:17 Comments: Patient reports chest congestion, cough and fever. Symptoms x3 weeks. Started taking Mucinex this morning. c/o slight sob and wheezing. Using Albuterol and Breo inhalers. Speaking full sentences without resp distress currently. Education provided on the response time and the member was advised to monitor reported s/s and seek emergency treatment if needed. Gis Manager Organization Information for Robin Em Business Legal Name: [facility] Address: [address] [place] [address], Patient Coordinator Front Desk: Frederick Domínguez MD CLIA No.: [id number] Gis Manager POC Test Results from Robin Em Rapid COVID antigen (10:14:35) COVID: - Rapid influenza antigen (10:14:37) Flu: - .................... .................... .................... .................... .................... .................... .................... . Gis Manager Note From Robin Em: This 58-year-old male with a history including but not limited to HTN, HLD, CHF, COPD, DM type II requested a visit today to address 3+ weeks of cough producing green sputum and mild HUERTA. Patient states other family members have been sick with similar URI symptoms. Patient states she is been taking Mucinex with some relief but is not been using his nebulizer machine. Patient denies any chest pain, severe shortness of breath, fevers, nausea, vomiting, diarrhea. Patient presents awake and alert, in no acute distress and speaking full sentences. His vital signs are reasonably stable and he is afebrile. Nonfocal neurological exam. Normal gait. Normal oropharynx exam. Diffuse rhonchi on the right. Abdomen is soft, nontender, nondistended. No lower extremity edema. Rapid COVID and flu testing are both negative. I treated this patient with prednisone 60 mg and azithromycin 500 mg. We discussed the diagnostic uncertainty of home visits and the risk associated with this. In this case, the patient and I felt this to be an acceptable and reasonable amount of risk given the benefit of avoiding an ED visit. I provided education on the patient's prescriptions. I recommend he continue taking the Mucinex twice a day, begin using nebulizer treatments every four to six hours, follow-up with his PCP later this week and present to the emergency department for any new or worsening severe symptoms such as chest pain, severe shortness of breath, high fever, altered mental status. The patient was given the opportunity to ask questions and is agreeable to this plan. [facility] Lab Orders: rapid SARS CoV 2 Ag, QL IA, respiratory specimen: Performed rapid flu (A+B): Performed [facility] Medication Orders: prednisone 20 mg tablet: Administered albuterol sulfate 2.5 mg/3 mL (0.083 %) solution for nebulization: Administered Zithromax TRI-SULEMAN 500 mg tablet: Administered .................... .................... .................... .................... .................... .................... .................... . [facility] Consulted: Sangeetha Redman .................... .................... .................... .................... .................... .................... .................... . Disposition: Fulfilled Sangeetha Redman MD [address] [place] [address],[address], [place], [phone], [employer] 07/09/2024 10:47:24 07/26/2024 text/html [facility] Nurse Triage Notes (Jaquan Hughes): Reason For Request: Patient has chills and fever for 2 days, weakness, cough, light headed. Denies: Increased work of breathing/labored with or without fever Unable to speak in full sentences without distress Discoloration of skin -cyanosis Needs to sleep sitting up, can t catch breath Shortness of breath in setting of confusion Chief Complaints: Breathing Problems, Common Cold PMH: Hypertension, Congestive Heart Failure, COPD/Asthma, Diabetes Mellitus Type 2, Hyperlipidemia PMH Reviewed at 07/26/2024 14:41 Allergies Reviewed at 07/26/2024 14:41 Comments: Cost Estimating Manager verified the patient's name//address and phone number. Pt calling reporting cough, fever, chills, and feeling lightheaded. Pt reports felt feverish and had chills approx two days. Pt reports productive cough with green sputum. Pt reports recently finished antibiotics for pneumonia. Pt speaking in full, complete sentences at time of call. Pt reports was wheezing earlier and took home nebulizer treatment. Of note, pt states son tested (+) for COVID a couple days. Education provided on the response time and the patient was advised to monitor reported s/s and seek emergency treatment if needed -Crystal Hughes RN Gis Manager Organization Information for Deni Fam Business Legal Name: [employer] Address: [address] [place] [address], Patient Coordinator Front Desk: Leighton Mena MD [facility] No.: [id number] Gis Manager POC Test Results from Deni Fam Rapid COVID antigen (18:08:38) COVID: - Attachments uploaded as part of this test result can be found under Documents section. Rapid influenza antigen (18:08:39) Flu: +A Attachments uploaded as part of this test result can be found under Documents section. .................... .................... .................... .................... .................... .................... .................... . Gis Manager Note From Deni Fam: Pt seen for respiratory symptoms. Pt reports congestion, mucus producing cough x 1 week. Pt reports hx of asthma and has been using his nebulizer in the morning as he does on a daily basis, Pt reports he has not felt the need to use his rescue inhaler. Pt denies any SOB or CP. Pt denies all other complaints. VS as noted. LS clear in all cadena. Pt has what sounds like wheezing, however upon further examination it is coming from his nose due to congestion. Pt exam otherwise unremarkable. COVID, Flu A/B POC test done, positive for flu A. Pt reports he recently finished a round of antibiotics and prednisone (1-2 weeks ago) for a respiratory infection, Pt unable to be more specific on infection and was feeling better but then worsened when discontinuing medications. Pt reports he believes prednisone would help as he ahs taken it several times in the past. [facility] contacted and advised of Pt complaint, presentation and assessment findings. [facility] reports they will send in prescription for nasal spray & taper dose of Prednisone and send a note to Pt's PCP about penitentiary medication. Pt allergies confirmed. [facility] orders for 40mg of prednisone PO to be administered at this time. [facility] orders followed, Pt advised of treatment plan and agreeable to it. Call closed. [facility] Lab Orders: rapid SARS CoV 2 Ag, QL IA, respiratory specimen: Performed rapid flu (A+B): Performed [facility] Medication Orders: prednisone 20 mg tablet: Administered .................... .................... .................... .................... .................... .................... .................... . [facility] Consulted: Mojgan Morataya .................... .................... .................... .................... .................... .................... .................... . Disposition: Fulfilled Mojgan Morataya MD [address] [facility],[address], [place], [phone], [employer] 07/26/2024 18:49:11 10/11/2024 text/html [facility] Nurse Triage Notes (Luna Espinoza): Reason For Request: mucous/BP check Patient Reports: Sinus infection Denies: Sudden onset of dental pain, unable to manage own secretions Nosebleed lasting longer than one hour; unable to stop bleeding Throat swelling/difficult swallowing Dental pain and fever, able to maintain secretions Conjunctivitis External Ear concerns Chief Complaints: Common Cold, Dizziness PMH: Hypertension, Congestive Heart Failure, COPD/Asthma, Diabetes Mellitus Type 2, Hyperlipidemia PMH Reviewed at 10/11/2024 Allergies Reviewed at 10/11/2024:20 Comments: 59 y.o male complains of Common Cold, Dizziness Patient reported getting over cold like symptoms three weeks ago. complains of a large amount of congestion coming from his nose green in color. Denies any headaches, does complain of occasional dizziness. Denies any shortness of breath, not on any oxygen. denies any coughing at this time. no fever no chills. Denies any pain. He checked his blood pressure today 113/60. I provided information on the mobile health provider response time and advised the patient and/or caregiver to monitor reported signs and symptoms. I discussed the warning signs of when to seek emergency care. . .................... .................... .................... .................... .................... .................... .................... . Gis Manager Note From Tee Sunshine: 59 yo male co 3 weeks of cough and cold with significant green sinus discharge continuously for last week. Some sinus pressure to left side and he had deviated septum surgery in last year and no pain on that side. Pt states cough is gone but lots of nasal discharge and thick mucus when blowing nose. Pt notes his cough is significantly better. No one else except grandchild has been sick and he plays with grandchild all day every day. Denies cp or sob. Breath sounds clear and equal bilaterally. Belly soft nontender. Contacted dr Cao who prescribed doxycycline 100 mg and gave him 1 doxycycline tablet with script called to pharmacy by Dr. Cao. Pt given red flags. and he thanked us for visit. 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 [facility] Medication Orders: doxycycline hyclate 100 mg tablet: Administered .................... .................... .................... .................... .................... .................... .................... . [facility] Consulted: Mily Thompson .................... .................... .................... .................... .................... .................... .................... . Disposition: Hiren THOMPSON MD [address] [facility], [place], [address], [employer] 10/11/2024 21:34:59
--- OUTSIDE RECORDS SUMMARY | 2024-10-29 08:13 | XMS_ITS | Clinical Summary ---
Author Organization [facility] Address [address] [place] [phone] Phone Care Team Providers Care Wheel Adjuster Name Role Phone Mckinley Ferreira MD Primary Care Provider [phone] Allergies Active Allergy Reactions Criticality Noted Date Comments Ketorolac Other (see comments) Medium 02/20/2024 Penicillins Other (see comments) 02/27/2008 Medications albuterol HFA (PROVENTIL HFA;VENTOLIN HFA) 108 (90 Base) MCG/ACT inhaler Inhale 2 puffs every 6 (six) hours if needed 4 Active amLODIPine (NORVASC) 10 MG tablet Take [...] or 0.5 MG/DOSE, 2 MG/3ML solution pen-injector 4 Active traZODone (DESYREL) 50 MG tablet Take 50 mg by mouth every night 4 Active furosemide (LASIX) 40 MG tablet Take 40 mg by mouth in the morning. 4 Active Fluticasone Furoate-Vilante rol 100-25 MCG/ACT aerosol powder Inhale 1 Puff into the lungs daily. 4 Active fluticasone (FLONASE) 50 MCG/ACT nasal spray Administer 2 sprays into each nostril 1 (one) time each day 4 Active buPROPion XL (WELLBUTRIN XL) 300 MG 24 hr tablet Take 300 mg by mouth in the morning. 2 Active atorvastatin (LIPITOR) 40 MG tablet Take 40 mg by mouth 1 (one) time each day Active ergocalciferol 1.25 MG (92560 UT) capsule TAKE 1 CAPSULE BY MOUTH 1 TIME EVERY WEEK 12 capsule 5 Active Active Problems Problem Noted Date Diagnosed Date [...] as recommended. Cocaine use, unspecified, uncomplicated 08/24/19 22 Alcohol abuse 07/18/2019 Overview (02/20/2024): Last Assessment & Plan: The patient has improved his alcohol intake markedly, reporting that he only drinks 3-4 beers per week now. He was encouraged to continue with these efforts. Obstructive sleep apnea 02/13/2017 Overview (02/20/2024): [facility] Home Polysomnogram: Date 02/13/2017; AHI 63, Unclassified [...] metabolic panel today. Insomnia 03/09/2012 Overview (02/20/2024): Elisa and esvin from previous pcp Encounters Date Type Department Care Team Description 08/07/2024 Refill [facility] [address] [id number] Trenton Argueta MD 07/30/2024 Orders Only [facility] [address] [id number] Smita Avalos ARNP Stage 3a chronic kidney [...] Office Visit [facility] [address] [phone] Toño Greenfield MD [address] [facility] [address] [place] [id number] Health Maintenance Due Date Last Done Comments [...] Exam 01/04/2024 Diabetes: Hemoglobin A1C 09/23/2024 06/26/2024, 10/29 Influenza Vaccine (Season Ended) 2024 02/20/2023, 03/20/2022, 03/20/2022, Additional history exists Pneumococcal Vaccine: Peds ( 0 to 5 Years) and At-Risk Patients (6 to 49 Years) Discontinued 02/26/2002 Insurance [employer] [id number] Care Teams Wheel Adjuster Relationship Specialty Start Date End Date Mckinley Ferreira MD PCP - General Internal Medicine 02/20/24
== END 2024-09-24 00:01 | disposition home or self-care (01) ==
LOC: HO.PAT
PROVIDERS: Physician Assistant; PCP Internal Medicine; Visit Provider Orthopaedic Surgery
DX: M17.11 Unilateral primary osteoarthritis, right knee (principal)
CPT/HCPCS: 87640; 87641